=== PATIENT | female | born 1980 | race American Indian/Alaskan Native ===

== ENCOUNTER 2017-10-18 07:41 | Inpatient (IN) | payer MEDICAID ==
[2017-10-18] MEDS ORDERED: Sodium Chloride 0.9% 1,000 ML IV ONE ×2 (08:00→09:55)
[2017-10-18 08:13] LABS: BASO % 0.3 % (0.0-2.0); EOS % 0.1 % (0.0-4.0); LYMPH # 1.2 K/uL (1.0-4.3); LYMPH % 10.2 % (20.0-40.0); MEAN CELL VOLUME 80.3 fL (81.0-99.0); MEAN CORPUSCULAR HEMOGLOBIN 25.5 pg (27.0-31.0); MEAN CORPUSCULAR HGB CONC 31.7 g/dL (33.0-37.0); MEAN PLATELET VOLUME 7.8 fL (7.2-11.7); MONO # 0.6 K/uL (0.0-0.8); MONO % 4.9 % (0.0-10.0); NEUT # 10.3 K/uL (1.8-7.0); NEUT % 84.5 % (50.0-75.0); RBC 2.8 Mil/uL (3.80-5.20); RED CELL DISTRIBUTION WIDTH 15.6 % (11.5-14.5)
[2017-10-18 08:26] LABS: HEMOGLOBIN 7.1 g/dL (11.0-16.0); WHITE BLOOD COUNT 12.2 K/uL (4.8-10.8)
--- NOTE | 2017-10-18 08:31 | C.PDOC ---
History Of Present Illness 37 year old female is brought in by ambulance for evaluation of diffuse abdominal pain persisting for the past few weeks. Patient reports constipation and decreased appetite, stating that she "may have a UTI." Patient also reports being evaluated at [facility] one week ago for the same complaints and "nothing was done" so she presents here. History is limited due to patient being a poor historian. Time Seen by Provider: 10/18/17 07:43 Chief Complaint (Nursing): Abdominal Pain History Per: Patient History/Exam Limitations: no limitations Onset/Duration Of Symptoms: Other (weeks) Current Symptoms Are (Timing): Still Present Location Of Pain/Discomfort: Diffuse Quality Of Discomfort: "Pain" Associated Symptoms: Loss Of Appetite, Other (constipation) Past Medical History Reviewed: Historical Data, Nursing Documentation, Vital Signs Vital Signs: Last Vital Signs Temp 99.5 F 10/18/17 16:00 Pulse 103 H 10/18/17 16:00 Resp 16 10/18/17 16:00 BP 95/58 L 10/18/17 14:35 Pulse Ox 98 10/18/17 16:00 - Medical History PMH: Anxiety, Depression, HTN (NOT TAKING MEDS 02/24/17) Denies: Diabetes, Hepatitis, HIV, Seizures, Sexually Transmitted Disease Surgical History: No Surg Hx - [facility] Procedures SUTURE OF LIP LACERATION (08/21/14) TETANUS TOXOID ADMINIST (08/21/14) Family History: States: Unknown Family Hx - Social History Hx Tobacco Use: Yes Hx Alcohol Use: Yes Hx Substance Use: No - Immunization History Hx Tetanus Toxoid Vaccination: No Hx Influenza Vaccination: No Hx Pneumococcal Vaccination: No Review Of Systems Except As Marked, All Systems Reviewed And Found Negative. Constitutional: Negative for: Fever Cardiovascular: Negative for: Chest Pain Respiratory: Negative for: Shortness of Breath Gastrointestinal: Positive for: Nausea, Abdominal Pain, Constipation, Other ( decreased appetite) Genitourinary: Negative for: Incontinence Neurological: Negative for: Altered Mental Status Physical Exam - Physical Exam Appears: Non-toxic, Unkempt, Other (disheveled, poor physical hygiene, appears chronically ill and cachectic) Skin: Normal Color, Warm, Dry, No Rash, No Ecchymosis Head: Atraumatic, Normacephalic Eye(s): bilateral: PERRL Nose: No Flaring, No Discharge Oral Mucosa: Dry, No Drooling Throat: No Drooling Neck: Trachea Midline, Supple Chest: No Deformity, No Tenderness Cardiovascular: Rhythm Regular Respiratory: Normal Breath Sounds, No Rales, No Rhonchi, No Wheezing Gastrointestinal/Abdominal: Soft, Tenderness (diffuse), No Guarding, No Rebound Back: No CVA Tenderness Extremity: Normal ROM, No Pedal Edema, No Swelling Neurological/Psych: Oriented x3, Normal Speech, Normal Cognition, Other (no focal deficits) ED Course And Treatment - Laboratory Results Result Diagrams: 10/18/17 08:10 10/18/17 08:10 Lab Interpretation: Abnormal ECG: Interpreted By Me, Viewed By Me ECG Rhythm: Sinus Rhythm Interpretation Of ECG: SR@94/min, NAD, T wave inversion in V2-V3, no acute ST-T Changes. O2 Sat by Pulse Oximetry: 100 (RA) Pulse Ox Interpretation: Normal - Other Rad CXR X-Ray: Read By Radiologist Interpretation: IMPRESSION: Mild elevation right hemidiaphragm possibly due to eventration. There may also be some mild right basilar atelectasis. Developing infiltrate could be excluded with followup radiographs. - CT Scan/US CT abd/pelvis Other Rad Studies (CT/US): Radiology Report Reviewed CT/US Interpretation: IMPRESSION: There is a large amount of abdominal and pelvic ascites and a large amount of free intraperitoneal air suggesting perforated hollow viscus. Clinical correlation recommended. Note that these findings were discussed with emergency room STEVENSON Mendieta at approximately 12:30 p.m. with written down and read back verification. . Wall thickening of the transverse colon could represent a nonspecific colitis however possibility of bowel ischemia must be considered. . There is also wall with thickening of the distal mid and distal stomach ; rule out gastritis or possibly peptic ulcer disease. Findings consistent with anemia. Gallbladder wall is thickened likely due to incomplete distention/contracted likely due to nonfasting state however inflammatory process not excluded. Evaluation of the bladder is limited due to incomplete distention which presumably accounts for thick-walled appearance however the possibility of a cystitis not excluded. Progress Note: Critical Care . Blood transfusion offered to patient, agreed. After CT abd/pelvis discussed with radiologist, residential framing carpenter called for consult and was evaluated at bedside immediately. Abx given. case discussed with Violet and admission arranged to ICU. Critical Care Time - Critical Care Note Total Time (in mins): 40 Documented critical care: time excludes all time spent performing seperately billable procedures. Disposition - Disposition Disposition: HOSPITALIZED Disposition Time: 11:42 Condition: FAIR - Clinical Impression Clinical Impression: Anemia, Perforated abdominal viscus, Drug abuse - PA / DATA SUPPORT ANALYST / Resident Statement MD/DO has reviewed & agrees with the documentation as recorded. - Scribe Statement The provider has reviewed the documentation as recorded by the Scribe (William Hampton) All medical record entries made by the Scribe were at my direction and personally dictated by me. I have reviewed the chart and agree that the record accurately reflects my personal performance of the history, physical exam, medical decision making, and the department course for this patient. I have also personally directed, reviewed, and agree with the discharge instructions and disposition.
[2017-10-18 08:47] LABS: ALB/GLOB RATIO 1.2 (1.0-2.1); ALBUMIN 3.6 g/dL (3.5-5.0); CALCIUM 8.7 mg/dl (8.6-10.4)
[2017-10-18] MEDS ORDERED: Iodixanol 320 MG/ML 100 ML BOTTLE IV ONE (11:34)
[2017-10-18 11:48] LABS: SQUAMOUS EPITHIAL 1 /hpf (0-5); URINE BACTERIA OCC (<OCC); URINE BILIRUBIN NEGATIVE (NEGATIVE); URINE BLOOD NEGATIVE (NEGATIVE); URINE CLARITY Hazy (Clear); URINE COLOR Yellow (YELLOW); URINE GLUCOSE (UA) NORMAL (Normal); URINE LEUKOCYTE ESTERASE NEG Leu/uL (Negative); URINE PROTEIN 1+ mg/dL (NEGATIVE); URINE UROBILINOGEN NORMAL mg/dL (0.2-1.0); WBC CLUMPS FEW /hpf
[2017-10-18 11:49] LABS: HCG,QUALITATIVE URINE NEGATIVE (NEGATIVE)
--- NOTE | 2017-10-18 11:55 | RAD ---
HISTORY: weak COMPARISON: Comparison chest 02/24/2018. FINDINGS: LUNGS: Mild elevation right hemidiaphragm possibly due to eventration. There may also be some mild right basilar atelectasis. Developing infiltrate could be excluded with followup radiographs. PLEURA: No significant pleural effusion identified, no pneumothorax apparent. CARDIOVASCULAR: Normal. OSSEOUS STRUCTURES: No significant abnormalities. VISUALIZED UPPER ABDOMEN: Normal. OTHER FINDINGS: None. IMPRESSION: Mild elevation right hemidiaphragm possibly due to eventration. There may also be some mild right basilar atelectasis. Developing infiltrate could be excluded with followup radiographs.
[2017-10-18 11:56] LABS: BENZODIAZEPINES, UR NEGATIVE (NEGATIVE); OPIATES, UR NEGATIVE (NEGATIVE)
[2017-10-18 11:58] LABS: BARBITURATES, UR POSITIVE (NEGATIVE); PHENCYCLIDINE, UR POSITIVE (NEGATIVE)
[2017-10-18] MEDS ORDERED: Piperacillin/Tazobact 3.375 gm 100 ML IV STA (12:47)
--- NOTE | 2017-10-18 12:59 | CT ---
PROCEDURE: CT Abdomen and Pelvis with Oral contrast. HISTORY: LLQ pain COMPARISON: No prior study available comparison. TECHNIQUE: Contiguous axial images of the abdomen and pelvis performed without oral or intravenous contrast material. Additional 2D sagittal and coronal reformats generated. Radiation dose: Total exam DLP = 208.08 mGy-cm. This CT exam was performed using one or more of the following dose reduction techniques: Automated exposure control, adjustment of the mA and/or kV according to patient size, and/or use of iterative reconstruction technique. FINDINGS: LOWER THORAX: Lung bases clear. No infiltrate effusion or basilar pneumothorax. The heart size is within range of normal. Intravascular compartment however suggests underlying anemia. Clinical correlation recommended. . Small hiatal hernia. LIVER: Liver is borderline -mildly enlarged measuring just over 18 cm in CC dimension. No obvious hepatic mass or collection. There is a large amount of intra abdominal and pelvic ascites. GALLBLADDER AND BILE DUCTS: Gallbladder appears contracted which presumably accounts for thick-walled appearance however the possibility of a inflammatory process not excluded. There appears to be intraluminal hyperdense material that could represent sludge or possibly small gravel. PANCREAS: Pancreas is poorly delineated due to the aforementioned large amount of ascites and under opacified bowel. No obvious pancreatic lesions are identified. SPLEEN: The spleen exhibits relatively normal size and attenuation pattern without mass collection or calcification. ADRENALS: There are no adrenal lesions. KIDNEYS AND URETERS: Kidneys demonstrate relatively symmetric size. No evidence of nephrolithiasis or hydronephrosis. No obvious renal masses or collections BLADDER: Urinary bladder appears collapsed which presumably accounts for thick-walled appearance. Cystitis not excluded. REPRODUCTIVE: Uterus appears grossly unremarkable so far as can be seen. APPENDIX: What is felt to represent a normal appendix best seen on axial image number [id number] and coronal image number [id number] BOWEL: Evaluation of the bowel is quite limited due to the large amount of ascites and free intraperitoneal air. . A paucity of intraperitoneal and retroperitoneal fat also limits evaluation 47. . . There is wall thickening of the mid and distal stomach possibly due to incomplete distention and peristalsis however gastritis or peptic ulcer disease not excluded. Evaluation of the small bowel including small bowel wall limited the due to the aforementioned ascites free air and paucity of fat. No evidence of acute mechanical small bowel obstruction. Evaluation of the wall of the small bowel is also limited No evidence of acute mechanical bowel obstruction. There does appear to be wall thickening of the transverse colon nonspecific. Rule out infectious/inflammatory colitis or possibly bowel ischemia. Large amount of free intraperitoneal air suggesting perforated hollow viscus. Clinical correlation recommended large PERITONEUM: Large amount of abdominal and pelvic ascites. Amount of free intraperitoneal air suggests perforated hollow viscus. LYMPH NODES: Evaluation for adenopathy is limited. VASCULATURE: No abdominal aortic or iliac artery aneurysm. Intravascular compartment exhibits low-attenuation consistent with anemia. BONES: No fracture or destructive lesion. OTHER FINDINGS: None. IMPRESSION: There is a large amount of abdominal and pelvic ascites and a large amount of free intraperitoneal air suggesting perforated hollow viscus. Clinical correlation recommended. Note that these findings were discussed with emergency room STEVENSON Mendieta at approximately 12:30 p.m. with written down and read back verification. . Wall thickening of the transverse colon could represent a nonspecific colitis however possibility of bowel ischemia must be considered. . There is also wall with thickening of the distal mid and distal stomach ; rule out gastritis or possibly peptic ulcer disease. Findings consistent with anemia. Gallbladder wall is thickened likely due to incomplete distention/contracted likely due to nonfasting state however inflammatory process not excluded. Evaluation of the bladder is limited due to incomplete distention which presumably accounts for thick-walled appearance however the possibility of a cystitis not excluded.
[2017-10-18] MEDS ORDERED: Piperacillin/Tazobact 3.375 gm 100 ML IVPB ONE (13:40)
[2017-10-18] MEDS: Piperacill/Tazo 3.375gm in Dex 3.375 GM/50 ML BAG IVPB SCH (13:45)
[2017-10-18] MEDS ORDERED: Lactated Ringer's 1,000 ML IV SCH (14:00)
[2017-10-18 14:10] LABS: INR 0.9; PROTHROMBIN TIME 9.6 SECONDS (9.7-12.2)
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
[2017-10-18] MEDS ORDERED: Sodium Chloride 0.9% 500 ML IV ONE ×2 (16:15→22:21)
[2017-10-18] MEDS ORDERED: Phenylephrine 10 mg/ml Inj ONE (16:43)
[2017-10-18] MEDS ORDERED: Midazolam 2 MG/2 ML VIAL ONE (16:43)
[2017-10-18] MEDS ORDERED: Etomidate 20 mg/10ml Inj IV ONE (16:45)
[2017-10-18] MEDS: HYDROmorphone 1 mg/ml ISec IVP PRN (16:53)
[2017-10-18] MEDS ORDERED: BUPIVACAINE 0.125%/0.9% NACL 600 ML IJ ONE ×2 (17:17→17:18)
[2017-10-18] MEDS ORDERED: Morphine 4 MG/ML VIAL ONE (20:08)
[2017-10-18] MEDS ORDERED: Neostigmine Methylsulfate 3mg/3ml Syringe IV ONE (20:28)
--- NOTE | 2017-10-18 21:24 | PCM.SURG1 ---
Surgeon's Initial Post Op Note - Surgeon's Notes Surgeon: Dr. Quiros Veterinarian Poultry: Lj Kingston PGY2 Type of Anesthesia: General Endo, Local Anesthesia Administered By: Tanner Pre-Operative Diagnosis: Perforated viscus Operative Findings: 3x3cm anterior and posterior 1st part of duodenal perforation, gross gastric contamination. inflammed gastric wall, omentum. Post-Operative Diagnosis: Perforated duodenum Operation Performed: Exploratory laparotomy, partial gastrectomy, Eulalio en Y gastrojejunostomy, jejunojejunostomy . Omental patch. Specimen/Specimens Removed: Antrum of stomach and 1st part of duodenum. Estimated Blood Loss: EBL {In ML}: 100 Blood Products Given: PRBC Drains Used: Tahir Post-Op Condition: Good Date of Surgery/Procedure: 10/18/17 Time of Surgery/Procedure: 21:24
[2017-10-18] MEDS ORDERED: Dextrose 5%/0.45% NS 1,000 ML IV SCH (21:30)
--- NOTE | 2017-10-18 21:48 | CP.PCM.PN ---
Subjective - Date & Time of Evaluation Date of Evaluation: 10/18/17 Time of Evaluation: 21:38 - Subjective Subjective: Patient back from surgery. She is alert and oriented, feeling cold and tired. Abdominal discomfort. Exam: No respiratory distress, NG tube in place Resp: Clear, No rales, wheezes nor rhonchi CVS: S1 S2 RRR, No gallops Abdomen: Post surgical dressing Ext: No edemas. SCE in place Neuro: Non focal Surgery Report: Dx: Perforated Duodenum Procedure: Laparotomy with partial Gastrectomy. Jejunostomy, Omentectomy. Eulalio en Y Gastrojejunostomy - Blood Loss 100Mls - PRBC transfused , second bag going - Continue Surgical management - Pain management - IV Fluids - Zofran for nausea/vomits - Follow CBC/CMP/Electrolytes - Stress ulcer Prophylaxis with Pantoprazole - DVT prophylaxis to start in AM with lovenox Tyler Friend MD Objective - Vital Signs/Intake and Output Vital Signs (last 24 hours): Temp Pulse Resp BP Pulse Ox 99.5 F 103 H 16 95/58 L 100 10/18/17 16:00 10/18/17 16:00 10/18/17 16:00 10/18/17 14:35 10/18/17 18:38 Intake and Output: 10/18/17 10/19/17 18:59 06:59 Intake Total 2750 600 Output Total 200 Balance 2750 400 - Medications Medications: Current Medications Acetaminophen (Tylenol 650 Mg Supp) 650 mg [place] Q4 PRN PRN Reason: Fever >100.4 F Hydromorphone HCl (Dilaudid) 1 mg IVP Q4H PRN PRN Reason: Pain, moderate (4-7) Last Admin: 10/18/17 16:53 Dose: 1 mg Piperacillin Sod/Tazobactam Sod (Zosyn 3.375 Gm Iv Premix) 3.375 gm in 50 mls @ 100 mls/hr IVPB Q6H PHILIPPE PRN Reason: Protocol Last Admin: 10/18/17 13:45 Dose: Not Given BUPIVACAINE 0.125%/0.9% NACL (Bupivacaine-Ns 0.125% On-Q Department [employer] Sociology Chair) 600 mls @ 4 mls/ hr IJ ONCE ONE Stop: 10/24/17 23:16 Dextrose/Sodium Chloride (Dextrose 5%/0.45% Ns 1000 Ml) 1,000 mls @ 100 mls/hr IV .Q10H PHILIPPE Ondansetron HCl (Zofran Inj) 4 mg IVP Q4 PRN PRN Reason: Nausea/Vomiting Pantoprazole Sodium (Protonix Inj) 40 mg IVP Q12H PHILIPPE Last Admin: 10/18/17 17:08 Dose: Not Given - Labs Labs: 10/18/17 08:10 10/18/17 08:10 PT 9.6 SECONDS (9.7-12.2) L 10/18/17 13:48 INR 0.9 10/18/17 13:48 APTT 27 SECONDS (21-34) 10/18/17 13:48
[2017-10-18] MEDS: Dextrose 5%/0.9% NS 1,000 ML IV SCH (23:00)
[2017-10-19] MEDS: Piperacill/Tazo 3.375gm in Dex 3.375 GM/50 ML BAG IVPB SCH ×4 (01:00→20:03)
[2017-10-19] MEDS: Dextrose 5%/0.9% NS 1,000 ML IV SCH (05:26)
[2017-10-19 06:57] LABS: BASO % 0.2 % (0.0-2.0); HEMOGLOBIN 7.3 g/dL (11.0-16.0); LYMPH # 0.7 K/uL (1.0-4.3); LYMPH % 4.5 % (20.0-40.0); MEAN CELL VOLUME 81.2 fL (81.0-99.0); MEAN CORPUSCULAR HEMOGLOBIN 25.7 pg (27.0-31.0); MEAN CORPUSCULAR HGB CONC 31.6 g/dL (33.0-37.0); MEAN PLATELET VOLUME 8.3 fL (7.2-11.7); MONO # 1.1 K/uL (0.0-0.8); MONO % 7.1 % (0.0-10.0); NEUT # 13.5 K/uL (1.8-7.0); NEUT % 88.2 % (50.0-75.0); PLATELET COUNT 418 K/uL (130-400); RBC 2.83 Mil/uL (3.80-5.20); RED CELL DISTRIBUTION WIDTH 16.3 % (11.5-14.5); WHITE BLOOD COUNT 15.3 K/uL (4.8-10.8)
[2017-10-19 07:17] LABS: ALBUMIN 2.5 g/dL (3.5-5.0); CALCIUM 7.7 mg/dl (8.6-10.4)
--- NOTE | 2017-10-19 07:48 | CP.PCM.PN ---
<TheeLj - Last Filed: 10/19/17 07:43> Subjective - Date & Time of Evaluation Date of Evaluation: 10/19/17 Time of Evaluation: 07:44 - Subjective Subjective: Surgery Pt seen and examined. Pt undewent surgery yesterday. Tolerated it. Pain controlled. Pt is thirsty. Denies flatus. NGT in place. No output from NGT. Drain has 300cc ss since surgery. Objective - Vital Signs/Intake and Output Vital Signs (last 24 hours): Temp Pulse Resp BP Pulse Ox 98.8 F 96 H 21 95/60 L 100 10/19/17 04:00 10/19/17 06:00 10/19/17 06:00 10/19/17 05:59 10/19/17 06:00 Intake and Output: 10/19/17 10/19/17 06:59 18:59 Intake Total 2750 Output Total 1150 Balance 1600 - Medications Medications: Current Medications Acetaminophen (Tylenol 650 Mg Supp) 650 mg [place] Q4 PRN PRN Reason: Fever >100.4 F Enoxaparin Sodium (Lovenox) 40 mg SC DAILY ON LICENSE OF [facility] Hydromorphone HCl (Dilaudid) 1 mg IVP Q4H PRN PRN Reason: Pain, moderate (4-7) Last Admin: 10/18/17 16:53 Dose: 1 mg Piperacillin Sod/Tazobactam Sod (Zosyn 3.375 Gm Iv Premix) 3.375 gm in 50 mls @ 100 mls/hr IVPB Q6H PHILIPPE PRN Reason: Protocol Last Admin: 10/19/17 01:00 Dose: 100 mls/hr BUPIVACAINE 0.125%/0.9% NACL (Bupivacaine-Ns 0.125% On-Q Digital Experience Manager) 600 mls @ 4 mls/ hr IJ ONCE ONE Stop: 10/24/17 23:16 Dextrose/Sodium Chloride (Dextrose 5%/0.9% Ns 1000 Ml) 1,000 mls @ 150 mls/hr IV .Q6H40M PHILIPPE Stop: 10/19/17 12:19 Last Admin: 10/19/17 05:26 Dose: 150 mls/hr Ondansetron HCl (Zofran Inj) 4 mg IVP Q4 PRN PRN Reason: Nausea/Vomiting Pantoprazole Sodium (Protonix Inj) 40 mg IVP Q12H PHILIPPE Last Admin: 10/19/17 01:00 Dose: 40 mg - Labs Labs: 10/19/17 06:51 10/19/17 06:51 PT 9.6 SECONDS (9.7-12.2) L 10/18/17 13:48 INR 0.9 10/18/17 13:48 APTT 27 SECONDS (21-34) 10/18/17 13:48 - Constitutional Appears: No Acute Distress - Head Exam Head Exam: ATRAUMATIC, NORMAL INSPECTION, NORMOCEPHALIC - Eye Exam Eye Exam: EOMI, Normal appearance, PERRL Pupil Exam: NORMAL ACCOMODATION, PERRL - ENT Exam ENT Exam: Mucous Membranes Moist, Normal Exam - Neck Exam Neck Exam: Full ROM, Normal Inspection. absent: Lymphadenopathy - Respiratory Exam Respiratory Exam: NORMAL BREATHING PATTERN - Cardiovascular Exam Cardiovascular Exam: REGULAR RHYTHM, +S1, +S2. absent: Murmur - GI/Abdominal Exam GI & Abdominal Exam: Soft, Tenderness, Normal Bowel Sounds. absent: Distended, Guarding, Rigid, Diminished Bowel Sounds Additional comments: Drain SS 300cc overnight. ON Q. Dressing C/D/I - Exam Exam: NORMAL INSPECTION Additional comments: Jenkins - Extremities Exam Extremities Exam: Full ROM, Normal Capillary Refill, Normal Inspection. absent : Joint Swelling, Pedal Edema - Back Exam Back Exam: NORMAL INSPECTION - Neurological Exam Neurological Exam: Alert, Awake, CN II-XII Intact, Oriented x3 - Psychiatric Exam Psychiatric exam: Normal Affect, Normal Mood - Skin Skin Exam: Dry, Intact, Normal Color, Warm Assessment and Plan - Assessment and Plan (Free Text) Assessment: POD 1 sp exp lap partial gastrectomy Eulalio En Y gastrojejunostomy -NPO -D5 @100 -PTX -Pain control -Nausea contol Will DW Dt. [place] <Nabil Quiros - Last Filed: 10/19/17 20:45> Objective - Vital Signs/Intake and Output Vital Signs (last 24 hours): Temp Pulse Resp BP Pulse Ox 101 F H 104 H 15 102/60 100 10/19/17 20:00 10/19/17 20:00 10/19/17 20:00 10/19/17 19:59 10/19/17 20:00 Intake and Output: 10/19/17 10/20/17 18:59 06:59 Intake Total 1778 200 Output Total 60 Balance 1718 200 - Medications Medications: Current Medications Acetaminophen (Tylenol 650 Mg Supp) 650 mg [place] Q4 PRN PRN Reason: Fever >100.4 F Bacitracin (Bacitracin) 1 gm TOP BID ON LICENSE OF [facility] Last Admin: 10/19/17 20:02 Dose: 1 oin Enoxaparin Sodium (Lovenox) 40 mg SC DAILY ON LICENSE OF [facility] Last Admin: 10/19/17 09:52 Dose: 40 mg Hydromorphone HCl (Dilaudid) 1 mg IVP Q4H PRN PRN Reason: Pain, moderate (4-7) Last Admin: 10/18/17 16:53 Dose: 1 mg Piperacillin Sod/Tazobactam Sod (Zosyn 3.375 Gm Iv Premix) 3.375 gm in 50 mls @ 100 mls/hr IVPB Q6H PHILIPPE PRN Reason: Protocol Last Admin: 10/19/17 20:03 Dose: 100 mls/hr BUPIVACAINE 0.125%/0.9% NACL (Bupivacaine-Ns 0.125% On-Q Digital Experience Manager) 600 mls @ 4 mls/ hr IJ ONCE ONE Stop: 10/24/17 23:16 Ondansetron HCl (Zofran Inj) 4 mg IVP Q4 PRN PRN Reason: Nausea/Vomiting Pantoprazole Sodium (Protonix Inj) 40 mg IVP Q12H ON LICENSE OF [facility] Last Admin: 10/19/17 14:53 Dose: 40 mg - Labs Labs: 10/19/17 06:51 10/19/17 06:51 PT 9.6 SECONDS (9.7-12.2) L 10/18/17 13:48 INR 0.9 10/18/17 13:48 APTT 27 SECONDS (21-34) 10/18/17 13:48 Attending/Attestation - Attestation I have fully participated in the care of the patient.: Yes I have reviewed all pertinent clinical information, including history, physical exam and plan: Yes Notes (Text): Pt is improving clinically NG to LIS NPO, IVF C/W IV antibiotics DC jenkins DVT prophylaxis OOB to walk Plan d.w pt in detail
[2017-10-19 08:28] LABS: BANDS 53 % (0-2); LYMPHOCYTE 5 % (20-40); MONOCYTE 7 % (0-10); NEUTROPHIL 35 % (50-75); TOTAL CELLS COUNTED 100
[2017-10-19 08:29] LABS: ANISOCYTOSIS MODERATE; PLATELET ESTIMATE SLIGHTLY INCREASED (NORMAL)
[2017-10-19 08:30] LABS: HYPOCHROMIC SLIGHT; POLYCHROMIC SLIGHT; TOXIC GRANULATION PRESENT
[2017-10-19 08:31] LABS: LARGE PLATELETS PRESENT; OVALOCYTES SLIGHT; POIKILOCYTOSIS SLIGHT; SCHISTOCYTES SLIGHT
[2017-10-19] MEDS: Enoxaparin 40 mg Syringe SC SCH (09:52)
[2017-10-19] MEDS ORDERED: Vancomycin 1 gm/NS 200 ml 1 GM/200 ML BAG IVPB ONE (12:00)
--- NOTE | 2017-10-19 12:05 | HP ---
HISTORY: The patient is a 37-year-old female with a history of abdominal pain. The patient was brought emergently to the emergency room , abdominal pain advised admission. The patient is a smoker. PHYSICAL EXAMINATION: GENERAL: The patient is awake, alert, and oriented . VITAL SIGNS: Temperature is 98.6. Pulse is 95. Blood pressure . HEENT: Within normal limits. NECK: Supple. CHEST: Symmetrical. HEART: Regular. ABDOMEN: Rigid, somewhat tender to touch . EXTREMITIES: No edema. IMPRESSION: Acute abdomen. The patient ICU monitoring, throughout the day. Susan Marcos MD
[2017-10-19] MEDS ORDERED: HYDROmorphone 0.5 mg/0.5 ml ISec IVP STA (14:29)
--- NOTE | 2017-10-19 15:34 | CP.CCUPN ---
CCU Subjective - Physician Review Events Since Last Encounter (Free Text): 10/19/17 15:31 Patient seen and examined. S/P Exploratory laparotomy, partial gastrectomy, Eulalio en Y gastrojejunostomy, jejunojejunostomy . Omental patch for anterior and posterior 1st part of duodenal perforation Nasogastric tube in place 300 mL of drainage from drain Complaining of abdominal pain Afebrile CCU Objective - Vital Signs / Intake & Output Vital Signs (Last 4 hours): Vital Signs Temp Pulse Resp BP Pulse Ox 10/19/17 14:10 98 H 21 100 10/19/17 14:00 101 H 23 100 10/19/17 13:59 102 H 20 94/40 L 96 10/19/17 13:50 93 H 26 H 100 10/19/17 13:40 91 H 24 100 10/19/17 13:37 96 H 25 H 95/45 L 100 10/19/17 13:30 89 25 H 100 10/19/17 13:24 98.9 F 100 H 20 95/57 L 10/19/17 13:20 97 H 24 100 10/19/17 13:10 96 H 22 100 10/19/17 13:09 99.0 F 95 H 20 98/49 L 10/19/17 13:00 103 H 18 100 10/19/17 12:59 93 H 29 H 98/49 L 100 10/19/17 12:50 96 H 25 H 100 10/19/17 12:43 92 H 18 88/44 L 100 10/19/17 12:40 92 H 22 100 10/19/17 12:30 97 H 28 H 100 10/19/17 12:20 94 H 23 100 10/19/17 12:10 96 H 27 H 100 10/19/17 12:00 98.7 F 98 H 21 100 10/19/17 11:59 91 H 27 H 90/42 L 100 10/19/17 11:50 101 H 26 H 100 10/19/17 11:40 97 H 31 H 100 Intake and Output (Last 8hrs): Intake & Output 10/19/17 10/19/17 10/19/17 06:59 14:59 22:59 Intake Total 1550 1000 Output Total 950 60 Balance 600 940 Weight 138 lb 4 oz Intake: Intake, IV Amount 1550 1000 Left Antecubital 1550 1000 Blood Product 0 Apheresis Rbc Cp2d As3 Lr 0 1st Unit [id number] Output: Drainage 300 60 LEFT ABD YEN 160 60 RIGHT ABD YEN 140 Urine 650 Urethral (Felipe) 650 - Physical Exam Head: Positive for: Atraumatic, Normocephalic Pupils: Positive for: PERRL Mouth: Positive for: Moist Mucous Membranes Neck: Positive for: Normal Range of Motion Respiratory/Chest: Positive for: Clear to Auscultation Cardiovascular: Positive for: Regular Rate and Rhythm Abdomen: Positive for: Tenderness Upper Extremity: Positive for: Normal Inspection Lower Extremity: Positive for: Normal Inspection - Medications Active Medications: Active Medications Generic Name Dose Route Start Last Admin Trade Name Freq PRN Reason Stop Dose Admin Acetaminophen 650 mg 10/18/17 14:00 Tylenol 650 Mg Supp [place] Q4 PRN Fever >100.4 F Enoxaparin Sodium 40 mg 10/19/17 10:00 Lovenox SC DAILY PHILIPPE Hydromorphone HCl 1 mg 10/18/17 14:00 10/18/17 16:53 Dilaudid IVP 1 mg Q4H PRN Administration Pain, moderate (4-7) Piperacillin Sod/Tazobactam Sod 3.375 gm in 50 mls @ 100 mls/hr 10/18/17 13: 45 10/19/17 01:00 Zosyn 3.375 Gm Iv Premix IVPB 100 mls/hr Q6H PHILIPPE Administration Protocol BUPIVACAINE 0.125%/0.9% NACL 600 mls @ 4 mls/hr 10/18/17 17:17 Bupivacaine-Ns 0.125% On-Q Silversmith Apprentice IJ 10/24/17 23:16 ONCE ONE Ondansetron HCl 4 mg 10/18/17 14:00 Zofran Inj IVP Q4 PRN Nausea/Vomiting Pantoprazole Sodium 40 mg 10/18/17 14:00 10/19/17 01:00 Protonix Inj IVP 40 mg Q12H PHILIPPE Administration - Patient Studies Lab Studies: Microbiology Studies 10/18/17 21:24 Gram Stain - Final Peritoneal Fluid Body Fluid Culture - Preliminary NO GROWTH AFTER 24 HOURS 10/18/17 13:48 Urine Culture - Final Urine,Catheterized No Growth (<1,000 CFU/ML) Lab Studies 07/01/18 07/01/18 06/30/18 Range/Units 06:51 06:51 23:21 WBC 15.3 H (4.8-10.8) K/uL RBC 2.83 L (3.80-5.20) Mil/uL Hgb 7.3 L (11.0-16.0) g/dL Hct 23.0 L (34.0-47.0) % MCV 81.2 (81.0-99.0) fL MCH 25.7 L (27.0-31.0) pg MCHC 31.6 L (33.0-37.0) g/dL RDW 16.3 H (11.5-14.5) % Plt Count 418 H D (130-400) K/uL MPV 8.3 (7.2-11.7) fL Neut % (Auto) 88.2 H (50.0-75.0) % Lymph % (Auto) 4.5 L (20.0-40.0) % [place] % (Auto) 7.1 (0.0-10.0) % Eos % (Auto) 0.0 (0.0-4.0) % Baso % (Auto) 0.2 (0.0-2.0) % Neut # (Auto) 13.5 H (1.8-7.0) K/uL Lymph # (Auto) 0.7 L (1.0-4.3) K/uL [place] # (Auto) 1.1 H (0.0-0.8) K/uL Eos # (Auto) 0.0 (0.0-0.7) K/uL Baso # (Auto) 0.0 (0.0-0.2) K/uL Neutrophils % (Manual) 35 L (50-75) % Band Neutrophils % 53 H* (0-2) % Lymphocytes % (Manual) 5 L (20-40) % Monocytes % (Manual) 7 (0-10) % Toxic Granulation Present Platelet Estimate Slightly increased H (NORMAL) Large Platelets Present Polychromasia Slight Hypochromasia (manual) Slight Poikilocytosis (manual Slight Anisocytosis (manual) Moderate Ovalocytes Slight Schistocytes Slight Sodium 134 (132-148) mmol/L Potassium 4.9 (3.6-5.2) mmol/L Chloride 101 (98-107) mmol/L Carbon Dioxide 25 (22-30) mmol/L Anion Gap 13 (10-20) BUN 26 H (7-17) mg/dL Creatinine 1.8 H (0.7-1.2) mg/dL Est GFR ( Amer) 38 Est GFR (Non-Af Amer) 31 POC Glucose (mg/dL) 112 H (65-110) mg/dL Random Glucose 103 (65-105) mg/dL Calcium 7.7 L (8.6-10.4) mg/dl Phosphorus 5.2 H (2.5-4.5) mg/dL Magnesium 2.0 (1.6-2.3) mg/dL Total Bilirubin 0.5 (0.2-1.3) mg/dL AST 66 H D (14-36) U/L ALT 42 (9-52) U/L Alkaline Phosphatase 41 (38-126) U/L Total Protein 5.0 L (6.3-8.3) g/dL Albumin 2.5 L D (3.5-5.0) g/dL Globulin 2.4 (2.2-3.9) gm/dL Albumin/Globulin Ratio 1.0 (1.0-2.1) Blood Type Antibody Screen 10/18/17 Range/Units 09:56 WBC (4.8-10.8) K/uL RBC (3.80-5.20) Mil/uL Hgb (11.0-16.0) g/dL Hct (34.0-47.0) % MCV (81.0-99.0) fL MCH (27.0-31.0) pg MCHC (33.0-37.0) g/dL RDW (11.5-14.5) % Plt Count (130-400) K/uL MPV (7.2-11.7) fL Neut % (Auto) (50.0-75.0) % Lymph % (Auto) (20.0-40.0) % [place] % (Auto) (0.0-10.0) % Eos % (Auto) (0.0-4.0) % Baso % (Auto) (0.0-2.0) % Neut # (Auto) (1.8-7.0) K/uL Lymph # (Auto) (1.0-4.3) K/uL [place] # (Auto) (0.0-0.8) K/uL Eos # (Auto) (0.0-0.7) K/uL Baso # (Auto) (0.0-0.2) K/uL Neutrophils % (Manual) (50-75) % Band Neutrophils % (0-2) % Lymphocytes % (Manual) (20-40) % Monocytes % (Manual) (0-10) % Toxic Granulation Platelet Estimate (NORMAL) Large Platelets Polychromasia Hypochromasia (manual) Poikilocytosis (manual Anisocytosis (manual) Ovalocytes Schistocytes Sodium (132-148) mmol/L Potassium (3.6-5.2) mmol/L Chloride (98-107) mmol/L Carbon Dioxide (22-30) mmol/L Anion Gap (10-20) BUN (7-17) mg/dL Creatinine (0.7-1.2) mg/dL Est GFR ( Amer) Est GFR (Non-Af Amer) POC Glucose (mg/dL) (65-110) mg/dL Random Glucose (65-105) mg/dL Calcium (8.6-10.4) mg/dl Phosphorus (2.5-4.5) mg/dL Magnesium (1.6-2.3) mg/dL Total Bilirubin (0.2-1.3) mg/dL AST (14-36) U/L ALT (9-52) U/L Alkaline Phosphatase (38-126) U/L Total Protein (6.3-8.3) g/dL Albumin (3.5-5.0) g/dL Globulin (2.2-3.9) gm/dL Albumin/Globulin Ratio (1.0-2.1) Blood Type O NEGATIVE Antibody Screen Negative Laboratory Results - last 24 hr 10/18/17 10/18/17 10/19/17 09:56 23:21 06:51 WBC 15.3 H RBC 2.83 L Hgb 7.3 L Hct 23.0 L MCV 81.2 MCH 25.7 L MCHC 31.6 L RDW 16.3 H Plt Count 418 H D MPV 8.3 Neut % (Auto) 88.2 H Lymph % (Auto) 4.5 L [place] % (Auto) 7.1 Eos % (Auto) 0.0 Baso % (Auto) 0.2 Neut # (Auto) 13.5 H Lymph # (Auto) 0.7 L [place] # (Auto) 1.1 H Eos # (Auto) 0.0 Baso # (Auto) 0.0 Neutrophils % (Manual) 35 L Band Neutrophils % 53 H* Lymphocytes % (Manual) 5 L Monocytes % (Manual) 7 Toxic Granulation Present Platelet Estimate Slightly increased H Large Platelets Present Polychromasia Slight Hypochromasia (manual) Slight Poikilocytosis (manual Slight Anisocytosis (manual) Moderate Ovalocytes Slight Schistocytes Slight Sodium Potassium Chloride Carbon Dioxide Anion Gap BUN Creatinine Est GFR ( Amer) Est GFR (Non-Af Amer) POC Glucose (mg/dL) 112 H Random Glucose Calcium Phosphorus Magnesium Total Bilirubin AST ALT Alkaline Phosphatase Total Protein Albumin Globulin Albumin/Globulin Ratio Blood Type O NEGATIVE Antibody Screen Negative 10/19/17 06:51 WBC RBC Hgb Hct MCV MCH MCHC RDW Plt Count MPV Neut % (Auto) Lymph % (Auto) [place] % (Auto) Eos % (Auto) Baso % (Auto) Neut # (Auto) Lymph # (Auto) [place] # (Auto) Eos # (Auto) Baso # (Auto) Neutrophils % (Manual) Band Neutrophils % Lymphocytes % (Manual) Monocytes % (Manual) Toxic Granulation Platelet Estimate Large Platelets Polychromasia Hypochromasia (manual) Poikilocytosis (manual Anisocytosis (manual) Ovalocytes Schistocytes Sodium 134 Potassium 4.9 Chloride 101 Carbon Dioxide 25 Anion Gap 13 BUN 26 H Creatinine 1.8 H Est GFR ( Amer) 38 Est GFR (Non-Af Amer) 31 POC Glucose (mg/dL) Random Glucose 103 Calcium 7.7 L Phosphorus 5.2 H Magnesium 2.0 Total Bilirubin 0.5 AST 66 H D ALT 42 Alkaline Phosphatase 41 Total Protein 5.0 L Albumin 2.5 L D Globulin 2.4 Albumin/Globulin Ratio 1.0 Blood Type Antibody Screen Fingerstick Blood Sugar Results: 112 Critical Care Progress Note - Nutrition Nutrition: Nutrition Category Date Time Status NPO Diet [DIET] Diets 10/18/17 Lunch Active Assessment/Plan (1) Perforated abdominal viscus Current Visit: Yes Status: Acute Comment: S/P Exploratory laparotomy, partial gastrectomy, Eulalio en Y gastrojejunostomy, jejunojejunostomy . Omental patch continue NG tube Continue pain medication Continue IV fluids IV antibiotics (2) Anemia Current Visit: Yes Status: Acute (3) Drug abuse Current Visit: Yes Status: Acute
[2017-10-19] MEDS ORDERED: Acetaminophen IV 1,000 MG in Premixed IV 1 EA IV ONE (19:47)
[2017-10-19] MEDS: Bacitracin Ointment 30 GM TUBE TOP SCH (20:02)
[2017-10-20] MEDS: Piperacill/Tazo 3.375gm in Dex 3.375 GM/50 ML BAG IVPB SCH ×4 (01:01→19:19)
--- NOTE | 2017-10-20 05:51 | OP ---
PROCEDURE DATE: 10/18/2017 PREOPERATIVE DIAGNOSES: 1. Acute abdomen. 2. Pneumoperitoneum with possible perforated viscus. 3. Active substance abuse. POSTOPERATIVE DIAGNOSES: 1. Perforated ulcer of the first part of the duodenum in the anterior as well as the posterior wall of approximately 3 x 3 cm size. 2. Multiple pelvic perihepatic, perisplenic, and paracolic gutter abscesses. 3. Active substance abuse. 4. Acute peritonitis. PROCEDURE DONE: 1. Exploratory laparotomy. 2. Drainage of pelvic, perihepatic,perisplenic and paracolic gutter abscesses. 3. Abdominal washout with 5 liter of fluid. 4. Partial gastrectomy. 5. Gastrojejunostomy with Eulalio-en-Y reconstruction. 6. Omental Patch of Duodenal stump after double layer closure 7. Extensive enterolysis and lysis of adhesion due to post infectious adhesion. 8. Bilateral On-Q pain catheter pump placement. SURGEON: Nabil Quiros MD. WIND TURBINE MACHINIST: Lj Kingston, PGY-2 resident. TYPE OF ANESTHESIA: General endotracheal tube anesthesia. ESTIMATED BLOOD LOSS: Around 100 mL. DRAIN: The first drain was placed around the duodenal stump. The second drain was placed in the pelvis. COMPLICATIONS: None. PATHOLOGY: Distal part of the stomach including the duodenum and perforated ulcer site was sent to the table for pathology. COMPLICATIONS: None. INTRAOPERATIVE FINDINGS: The patient had a 3 x 3 cm perforation of the first part of the duodenum anteriorly as well as posteriorly into the pancreas, and the patient had extensive scarring and adhesion of the first part of the duodenum and the common bile duct was dissected to identify the entry behind the first part of the duodenum, and it was approximately 1 cm distal to the posterior perforation site, and due to large size of the anterior and posterior perforated ulcer with extensive scarring, the decision was made to do the partial gastrectomy and Eulalio-en-Y anastomosis, and the patient also had approximately 3 to 4 liter of pus in the abdominal cavity, in the pelvic, paracolic gutters as well as around the liver as well as around the spleen; and the patient had extensive post infectious adhesion due to 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 Duodenal stump was closed in two layer and due to extensive scarring of posterior wall, omental patch was done for extra reinforcement of stump. DESCRIPTION OF PROCEDURE: On intraoperative steps, this is a 37-year-old female with active IV drug abuse, and the patient presented in the ER with chronic abdominal pain for the last two weeks, and the patient has visited two other hospitals for similar complaint, and the patient was discharged with pain medications, and the patient came to [facility]. The patient was diagnosed to have free air with acute abdomen, and the patient was consented for exploratory laparotomy and possible bowel resection, possible ostomy, brought to the OR, placed supine on the operating table. After induction of the anesthesia, the abdomen was prepped and draped in the usual sterile fashion. The midline incision was made from the xiphisternum up to the umbilical level, and after incising the skin, subcutaneous tissue and the fascia, the peritoneal cavity was entered. The patient was found to have old bile with pus all over the abdomen, and approximately, 3 to 4 liters of pus with altered gastric content was evacuated. Thorough abdominal washout was done with approximately 4 to 5 liters of fluid to completely clean the peritoneal cavity and the pelvis, paracolic gutter around the liver and around the spleen, and now the patient was found to have large perforation of the first part of the duodenum of approximately 3 x 3 cm size, and the patient also had posterior perforation into the lesser sac and around the pancreas that was also identified, and first extensive lysis of adhesion was done, and first lesser sac was entered, and the colon and the stomach was from the phlegmonous mass, and now the common bile duct was also dissected and entry of the common bile duct was 1 cm distal to the perforation site, and decision was made to do the partial gastrectomy. The lesser curvature as well as the greater curvature was mobilized. The distal part of the stomach was divided with SALMA, and the jejunum was divided approximately 14 cm from the ligament of Treitz and anastomosed to the distal jejunum at approximately 60 cm from previous resection site to do jejunojejunostomy, and now the Eulalio limb was brought up through the mesocolon, and gastrojejunostomy was done with SALMA as well as a TA, and the leak test was done. Now the duodenal stump at the original perforation site was closed with 2-0 silk for continuous closure and then surrounding omentum as well as the part of the mesentery was used to do the patch. Because of the extensive thick posterior scarring, it was unable to do the proper duodenal stump closure, and the omentum was used as a secondary measure to patch the duodenal stump to prevent the leak, and after that, the drain was placed surrounding the duodenal stump as well as in the pelvis. Again the abdominal washout was done, and the peritoneal cavity was closed in a two layered fascia with #1 looped PDS as well as 0 Prolene interrupted sutures, skin with vivek, and before closure of the peritoneal cavity, bilateral On-Q pain catheter pump was placed and pain catheter was connected to the On-Q bulbs and dry sterile dressings was applied. The patient tolerated the procedure well. Count of the instrument and gauze was correct. There was no apparent complication. The patient extubated in OR and sent to the Postanesthesia Care Unit in stable condition. Nabil Quiros MD MTDD
[2017-10-20 06:27] LABS: BASO % 0.1 % (0.0-2.0); EOS # 0.1 K/uL (0.0-0.7); EOS % 0.7 % (0.0-4.0); HEMOGLOBIN 8.1 g/dL (11.0-16.0); LYMPH # 0.5 K/uL (1.0-4.3); LYMPH % 2.4 % (20.0-40.0); MEAN CELL VOLUME 81.1 fL (81.0-99.0); MEAN CORPUSCULAR HEMOGLOBIN 27.2 pg (27.0-31.0); MEAN CORPUSCULAR HGB CONC 33.5 g/dL (33.0-37.0); MONO # 1.1 K/uL (0.0-0.8); NEUT # 19.4 K/uL (1.8-7.0); NEUT % 91.8 % (50.0-75.0); PLATELET COUNT 508 K/uL (130-400); RBC 2.98 Mil/uL (3.80-5.20); WHITE BLOOD COUNT 21.2 K/uL (4.8-10.8)
[2017-10-20 06:35] LABS: ALBUMIN 2.6 g/dL (3.5-5.0); CALCIUM 8.4 mg/dl (8.6-10.4)
[2017-10-20] MEDS: HYDROmorphone 1 mg/ml ISec IVP PRN ×3 (06:36→20:32)
[2017-10-20] MEDS ORDERED: Dextrose 5%/0.9% NS 1,000 ML IV SCH (07:45)
[2017-10-20] MEDS ORDERED: Sodium Chloride 0.9% 1,000 ML IV SCH (07:45)
[2017-10-20 08:34] LABS: BANDS 19 % (0-2); EOSINOPHIL 1 % (0-4); LYMPHOCYTE 3 % (20-40); MONOCYTE 7 % (0-10); NEUTROPHIL 70 % (50-75); TOTAL CELLS COUNTED 100
[2017-10-20 08:35] LABS: ANISOCYTOSIS SLIGHT; HYPOCHROMIC SLIGHT; PLATELET ESTIMATE SLIGHTLY INCREASED (NORMAL); POLYCHROMIC SLIGHT; TARGET CELLS SLIGHT
[2017-10-20] MEDS: Potassium Ch 20mEq in D5-1/2NS 1,000 ML IV SCH ×3 (08:59→20:31)
[2017-10-20] MEDS: Fluconazole IV 200mg/100 ml NS 100 ML IVPB SCH (10:01)
[2017-10-20] MEDS: Enoxaparin 40 mg Syringe SC SCH (10:03)
[2017-10-20] MEDS: Bacitracin Ointment 30 GM TUBE TOP SCH ×2 (10:06→18:08)
--- NOTE | 2017-10-20 11:50 | CP.CCUPN ---
CCU Subjective - Physician Review Subjective (Free Text): 10/20/17 11:36 Patient is a 37 yo female, 2 days s/p ex-lap, partial gastrectomy, zoraida en Y gastrojejunostomy, jejunostomy, omental patch for duodenal perforation with gastric contamination. Patient seen and examined at bedside. No acute events overnight. Patient is AAOx3 and in no acute distress. Patient reports pain has improved and has no complaints at this time. Patient continues to be NPO. Patient denies BM or flatus. Patient is OOB to chair and voiding. Patient denies fevers, chills, chest pain, palpitations, SOB, cough, nausea, vomiting, diarrhea, dysuria, suprapubic tenderness, lower extremity edema. Critical Care Time Spent (in minutes): 45 CCU Objective - Vital Signs / Intake & Output Vital Signs (Last 4 hours): Vital Signs Temp Pulse Resp BP Pulse Ox 10/20/17 10:59 84 16 106/62 100 10/20/17 09:59 84 14 96/56 L 98 10/20/17 09:45 79 22 115/69 99 10/20/17 09:00 75 19 99 10/20/17 08:59 87 16 105/47 L 93 L 10/20/17 08:00 98.5 F 82 16 101/62 100 Intake and Output (Last 8hrs): Intake & Output 10/19/17 10/20/17 10/20/17 22:59 06:59 14:59 Intake Total 1128 50 525 Output Total 300 700 260 Balance 828 -650 265 Weight 125 lb Intake: Intake, IV Amount 850 50 525 Left Antecubital 850 50 150 Right Forearm 375 Oral 0 0 Blood Product 278 Apheresis Rbc Cp2d As3 Lr 278 1st Unit [id number] Output: Drainage 260 LEFT ABD YEN 160 RIGHT ABD YEN 100 Right Nare 0 Urine 300 700 Urine, Voided 300 700 - Physical Exam Head: Positive for: Atraumatic, Normocephalic Pupils: Positive for: PERRL Conjunctiva: Positive for: Normal Mouth: Positive for: Moist Mucous Membranes Neck: Positive for: Normal Range of Motion Respiratory/Chest: Positive for: Clear to Auscultation Cardiovascular: Positive for: Regular Rate and Rhythm Abdomen: Positive for: Tenderness Upper Extremity: Positive for: Normal Inspection Lower Extremity: Positive for: Normal Inspection Psychiatric: Positive for: Alert, Oriented x 3 - Medications Active Medications: Active Medications Generic Name Dose Route Start Last Admin Trade Name Freq PRN Reason Stop Dose Admin Acetaminophen 650 mg 10/18/17 14:00 Tylenol 650 Mg Supp [place] Q4 PRN Fever >100.4 F Bacitracin 1 gm 10/19/17 19:30 10/20/17 10:06 Bacitracin TOP 1 oin BID PHILIPPE Administration Enoxaparin Sodium 40 mg 10/19/17 10:00 10/20/17 10:03 Lovenox SC 40 mg DAILY PHILIPPE Administration Hydromorphone HCl 1 mg 10/18/17 14:00 10/20/17 06:36 Dilaudid IVP 1 mg Q4H PRN Administration Pain, moderate (4-7) Piperacillin Sod/Tazobactam Sod 3.375 gm in 50 mls @ 100 mls/hr 10/18/17 13: 45 10/20/17 06:45 Zosyn 3.375 Gm Iv Premix IVPB 100 mls/hr Q6H PHILIPPE Administration Protocol BUPIVACAINE 0.125%/0.9% NACL 600 mls @ 4 mls/hr 10/18/17 17:17 Bupivacaine-Ns 0.125% On-Q Bus Operator IJ 10/24/17 23:16 ONCE ONE Fluconazole 100 mls @ 100 mls/hr 10/20/17 10:00 10/20/17 10:01 Diflucan Iv 200 Mg/100 Ml Ns IVPB 100 mls/hr DAILY PHILIPPE Administration Protocol Potassium Chloride/Dextrose/Sod Cl 1,000 mls @ 100 mls/hr 10/20/17 08:00 06/08 08:59 Potassium Chl 20 Meq In D5-1/2ns IV 100 mls/hr .Q10H PHILIPPE Administration Ondansetron HCl 4 mg 10/18/17 14:00 Zofran Inj IVP Q4 PRN Nausea/Vomiting Pantoprazole Sodium 40 mg 10/18/17 14:00 10/20/17 01:02 Protonix Inj IVP 40 mg Q12H PHILIPPE Administration - Patient Studies Lab Studies: Microbiology Studies 10/18/17 21:25 MRSA Culture (Admit) - Final Nose MRSA NOT DETECTED 10/18/17 15:45 Blood Culture - Preliminary Blood NO GROWTH AFTER 24 HOURS 06/30/18 15:45 Blood Culture - Preliminary Blood NO GROWTH AFTER 24 HOURS 10/18/17 21:24 Gram Stain - Final Peritoneal Fluid Body Fluid Culture - Preliminary NO GROWTH AFTER 24 HOURS 10/18/17 13:48 Urine Culture - Final Urine,Catheterized No Growth (<1,000 CFU/ML) Lab Studies 10/20/17 10/20/17 10/18/17 Range/Units 06:13 06:13 09:56 WBC 21.2 H (4.8-10.8) K/uL RBC 2.98 L (3.80-5.20) Mil/uL Hgb 8.1 L (11.0-16.0) g/dL Hct 24.1 L (34.0-47.0) % MCV 81.1 (81.0-99.0) fL MCH 27.2 (27.0-31.0) pg MCHC 33.5 (33.0-37.0) g/dL RDW 16.0 H (11.5-14.5) % Plt Count 508 H (130-400) K/uL MPV 8.0 (7.2-11.7) fL Neut % (Auto) 91.8 H (50.0-75.0) % Lymph % (Auto) 2.4 L (20.0-40.0) % [place] % (Auto) 5.0 (0.0-10.0) % Eos % (Auto) 0.7 (0.0-4.0) % Baso % (Auto) 0.1 (0.0-2.0) % Neut # (Auto) 19.4 H (1.8-7.0) K/uL Lymph # (Auto) 0.5 L (1.0-4.3) K/uL [place] # (Auto) 1.1 H (0.0-0.8) K/uL Eos # (Auto) 0.1 (0.0-0.7) K/uL Baso # (Auto) 0.0 (0.0-0.2) K/uL Neutrophils % (Manual) 70 (50-75) % Band Neutrophils % 19 H* (0-2) % Lymphocytes % (Manual) 3 L (20-40) % Monocytes % (Manual) 7 (0-10) % Eosinophils % (Manual) 1 (0-4) % Platelet Estimate Slightly increased H (NORMAL) Polychromasia Slight Hypochromasia (manual) Slight Anisocytosis (manual) Slight Target Cells Slight Sodium 138 (132-148) mmol/L Potassium 4.1 (3.6-5.2) mmol/L Chloride 105 (98-107) mmol/L Carbon Dioxide 23 (22-30) mmol/L Anion Gap 14 (10-20) BUN 24 H (7-17) mg/dL Creatinine 1.4 H (0.7-1.2) mg/dL Est GFR ( Amer) 51 Est GFR (Non-Af Amer) 42 Random Glucose 68 (65-105) mg/dL Calcium 8.4 L (8.6-10.4) mg/dl Phosphorus 3.7 (2.5-4.5) mg/dL Magnesium 2.1 (1.6-2.3) mg/dL Total Bilirubin 0.6 (0.2-1.3) mg/dL AST 74 H (14-36) U/L ALT 36 (9-52) U/L Alkaline Phosphatase 67 (38-126) U/L Total Protein 5.3 L (6.3-8.3) g/dL Albumin 2.6 L (3.5-5.0) g/dL Globulin 2.7 (2.2-3.9) gm/dL Albumin/Globulin Ratio 1.0 (1.0-2.1) Blood Type O NEGATIVE Antibody Screen Negative Laboratory Results - last 24 hr 10/18/17 10/20/17 10/20/17 09:56 06:13 06:13 WBC 21.2 H RBC 2.98 L Hgb 8.1 L Hct 24.1 L MCV 81.1 MCH 27.2 MCHC 33.5 RDW 16.0 H Plt Count 508 H MPV 8.0 Neut % (Auto) 91.8 H Lymph % (Auto) 2.4 L [place] % (Auto) 5.0 Eos % (Auto) 0.7 Baso % (Auto) 0.1 Neut # (Auto) 19.4 H Lymph # (Auto) 0.5 L [place] # (Auto) 1.1 H Eos # (Auto) 0.1 Baso # (Auto) 0.0 Neutrophils % (Manual) 70 Band Neutrophils % 19 H* Lymphocytes % (Manual) 3 L Monocytes % (Manual) 7 Eosinophils % (Manual) 1 Platelet Estimate Slightly increased H Polychromasia Slight Hypochromasia (manual) Slight Anisocytosis (manual) Slight Target Cells Slight Sodium 138 Potassium 4.1 Chloride 105 Carbon Dioxide 23 Anion Gap 14 BUN 24 H Creatinine 1.4 H Est GFR ( Amer) 51 Est GFR (Non-Af Amer) 42 Random Glucose 68 Calcium 8.4 L Phosphorus 3.7 Magnesium 2.1 Total Bilirubin 0.6 AST 74 H ALT 36 Alkaline Phosphatase 67 Total Protein 5.3 L Albumin 2.6 L Globulin 2.7 Albumin/Globulin Ratio 1.0 Blood Type O NEGATIVE Antibody Screen Negative Fingerstick Blood Sugar Results: 112 Review of Systems - Cardiovascular Cardiovascular: absent: Chest Pain, Dyspnea - Respiratory Respiratory: absent: Cough, Chest Congestion - Gastrointestinal Gastrointestinal: absent: Diarrhea, Nausea - Genitourinary Genitourinary: absent: Dysuria, Urinary Frequency Critical Care Progress Note - Extremities/Vascular Does the Patient have a Central Venous Catheter?: No Does the Patient have a Felipe Catheter?: No - Prophylaxis GI Prophylaxis GI: PPI - Prophylaxis DVT Prophylaxis DVT: Lovenox - Nutrition Nutrition: Nutrition Category Date Time Status NPO Diet [DIET] Diets 10/18/17 Lunch Active Assessment/Plan - Assessment and Plan (Free Text) Assessment: 10/20/17 12:17 Patient is a 37 yo female, 2 days s/p ex-lap, partial gastrectomy, zoraida en Y gastrojejunostomy, jejunostomy, omental patch for duodenal perforation with gastric contamination. 1. Perforated duodenum -NPO per sx recs -NG to intermittent suction -Pain meds- Acetamimophen 650mg Q4 PRN, Bupivicane, Dilaudid IVP Q4 PRN -IV Abx-Pip/Tazo 3.375 gm in 50 ml IVPB Q6 -f/u path report -Dr. Hope consulted 2. Anemia -continue to monitor; last Hgb 8.1 -Transfuse as needed 3. Drug abuse -f/u psych recommendations -Tox + for barbiturates, PCP, cannabinoids -Dr. Dean consulted 10/20/17 12:32 4. Prophylaxis GI-protonix DVT-Lovenox, OOB Patient transferred to med-surg Case discussed with motorcycle builder Dr. Rolle
--- NOTE | 2017-10-20 12:26 | PCM.PSYCH ---
Initial Psychiatric Evaluation - Initial Psychiatric Evaluation Type of Admission: Voluntary Legal Status: Capacity Chief Complaint (in patient's own words): "I feel fine" History of Present Illness and Precipitating Events: The pt is seen, chart reviewed, case was discussed. Patient is a 37 year old female with a past medical history of depression who was admitted to the hospital for severe abdominal pain. The patient had a gastrectomy and exploratory laparotomy. The patient states that she was diagnosed with depression some years ago following the of her childrens father. She was given anti-depressants at the time the names of which she does not recall. She is currently not on antidepressants. The patients urine drug screen was positive for barbiturates and cannabinoids. When questioned she admitted to smoking marijuana a few weeks ago. She reports euthymic mood but appeared depressed and withdrawn. She denies any thoughts of hurting self or others. She denies any AVH or any paranoia. Past medical history: Anxiety, depression Social Hx: smokes 7 cigarettes a day for the past 5 years Family Hx: patient does not provide any Medications: no known home medications Current Medications: Active Medications Generic Name Dose Route Start Last Admin Trade Name Freq PRN Reason Stop Dose Admin Acetaminophen 650 mg 10/18/17 14:00 Tylenol 650 Mg Supp MO Q4 PRN Fever >100.4 F Bacitracin 1 gm 10/19/17 19:30 10/20/17 10:06 Bacitracin TOP 1 oin BID [facility] Administration Enoxaparin Sodium 40 mg 10/19/17 10:00 10/20/17 10:03 Lovenox SC 40 mg DAILY [facility] Administration Hydromorphone HCl 1 mg 10/18/17 14:00 10/20/17 11:45 Dilaudid IVP 1 mg Q4H PRN Administration Pain, moderate (4-7) Piperacillin Sod/Tazobactam Sod 3.375 gm in 50 mls @ 100 mls/hr 10/18/17 13: 45 10/20/17 06:45 Zosyn 3.375 Gm Iv Premix IVPB 100 mls/hr Q6H [facility] Administration Protocol BUPIVACAINE 0.125%/0.9% NACL 600 mls @ 4 mls/hr 10/18/17 17:17 Bupivacaine-Ns 0.125% On-Q Cash Applications Coordinator IJ 10/24/17 23:16 ONCE ONE Fluconazole 100 mls @ 100 mls/hr 10/20/17 10:00 10/20/17 10:01 Diflucan Iv 200 Mg/100 Ml Ns IVPB 100 mls/hr DAILY [facility] Administration Protocol Potassium Chloride/Dextrose/Sod Cl 1,000 mls @ 100 mls/hr 10/20/17 08:00 06/08 08:59 Potassium Chl 20 Meq In D5-1/2ns IV 100 mls/hr .Q10H [facility] Administration Ondansetron HCl 4 mg 10/18/17 14:00 Zofran Inj IVP Q4 PRN Nausea/Vomiting Pantoprazole Sodium 40 mg 10/18/17 14:00 10/20/17 01:02 Protonix Inj IVP 40 mg Q12H [facility] Administration Past Psychiatric History - Past Psychiatric History Previous Treatment History: Inpatient Prior Professional Help: Patient states that she saw a psychiatrist years ago Prior Psychiatric Treatment: Antidepressants Pertinent Medical Hx (Current Medical&Sleep Prob, Allergies): Allergies Allergy/AdvReac Type Severity Reaction Status Date / Time No Known Allergies Allergy Verified 10/18/17 07:48 No Known Home Med 02/24/17 Review of Systems - Review of Systems All systems: reviewed and no additional remarkable complaints except - Constitutional Constitutional: absent: Fever - Psychiatric Psychiatric: Anxiety, Depression. absent: Suicidal Ideation Additional comments: denies homicidial or suicidal ideations. Denies audio or visual hallucinations Mental Status Examination - Personal Presentation Personal Presentation: Looks older than stated age - Affect Affect: Constricted - Motor Activity Motor Activity: Calm - Reliability in Providing Information Reliability in Providing Information: Fair - Speech Speech: Organized - Mood Mood: Depressed, Anxious - Formal Thought Process Formal Thought Process: No Impairment - Obsessions/Compulsions Obsessions: No Compulsions: No - Cognitive Functions Orientation: Person, Place, Situation, Time Sensorium: Alert Attention/Concentration: Attentive Abstract Thinking: [place] Estimate of Intelligence: Below average Judgement: Imparied, as evidence by: Poor judgement, Imparied, as evidence by: Lack of insight into illness - Risk Risk: Diminished functioning DSM 5 DX - DSM 5 DSM 5 Diagnosis: Major Depressive Disorder recurrent moderate Cannabis use disorder moderate - Recommended/Plan of Treatment Treatment Recommendations and Plan of Treatment: Major Depressive Disorder recurrent moderate Cannabis use disorder moderate Zoloft 50 mg PO Daily Trazdone 50 mg PO QHS Ativan 1 mg po q6 hr prn Pt psychiatrically stable and clear for discharge. - Smoking Cessation Smoking Cessation Initiated: No
--- NOTE | 2017-10-20 12:50 | CP.PCM.PN ---
<YasmanyvitorClinton - Last Filed: 10/20/17 12:50> Subjective - Date & Time of Evaluation Date of Evaluation: 10/20/17 Time of Evaluation: 12:47 - Subjective Subjective: Surgery: Dr. Quiros Pt seen and examined. No acute events overnight. Pain controlled. No N/V. Passing flatus. No BM. Objective - Vital Signs/Intake and Output Vital Signs (last 24 hours): Temp Pulse Resp BP Pulse Ox 98.5 F 84 16 106/62 100 10/20/17 08:00 10/20/17 10:59 10/20/17 10:59 10/20/17 10:59 10/20/17 10:59 Intake and Output: 10/20/17 10/20/17 06:59 18:59 Intake Total 400 525 Output Total 1000 260 Balance -600 265 - Medications Medications: Current Medications Acetaminophen (Tylenol 650 Mg Supp) 650 mg MO Q4 PRN PRN Reason: Fever >100.4 F Bacitracin (Bacitracin) 1 gm TOP BID [facility] Last Admin: 10/20/17 10:06 Dose: 1 oin Enoxaparin Sodium (Lovenox) 40 mg SC DAILY [facility] Last Admin: 10/20/17 10:03 Dose: 40 mg Hydromorphone HCl (Dilaudid) 1 mg IVP Q4H PRN PRN Reason: Pain, moderate (4-7) Last Admin: 10/20/17 11:45 Dose: 1 mg Piperacillin Sod/Tazobactam Sod (Zosyn 3.375 Gm Iv Premix) 3.375 gm in 50 mls @ 100 mls/hr IVPB Q6H [facility] PRN Reason: Protocol Last Admin: 10/20/17 06:45 Dose: 100 mls/hr BUPIVACAINE 0.125%/0.9% NACL (Bupivacaine-Ns 0.125% On-Q Crocheter) 600 mls @ 4 mls/ hr IJ ONCE ONE Stop: 10/24/17 23:16 Fluconazole (Diflucan Iv 200 Mg/100 Ml Ns) 100 mls @ 100 mls/hr IVPB DAILY [facility] PRN Reason: Protocol Last Admin: 10/20/17 10:01 Dose: 100 mls/hr Potassium Chloride/Dextrose/Sod Cl (Potassium Chl 20 Meq In D5-1/2ns) 1,000 mls @ 100 mls/hr IV .Q10H [facility] Last Admin: 10/20/17 08:59 Dose: 100 mls/hr Ondansetron HCl (Zofran Inj) 4 mg IVP Q4 PRN PRN Reason: Nausea/Vomiting Pantoprazole Sodium (Protonix Inj) 40 mg IVP Q12H [facility] Last Admin: 10/20/17 01:02 Dose: 40 mg - Labs Labs: 10/20/17 06:13 10/20/17 06:13 PT 9.6 SECONDS (9.7-12.2) L 10/18/17 13:48 INR 0.9 10/18/17 13:48 APTT 27 SECONDS (21-34) 10/18/17 13:48 - Constitutional Appears: Non-toxic, No Acute Distress - Head Exam Head Exam: ATRAUMATIC, NORMOCEPHALIC - Eye Exam Eye Exam: EOMI - ENT Exam ENT Exam: Mucous Membranes Moist - Neck Exam Neck Exam: Full ROM - Respiratory Exam Respiratory Exam: absent: Accessory Muscle Use, Respiratory Distress - Cardiovascular Exam Cardiovascular Exam: REGULAR RHYTHM - GI/Abdominal Exam GI & Abdominal Exam: Soft. absent: Distended, Firm, Guarding, Rigid, Tenderness , Rebound - Neurological Exam Neurological Exam: Alert, Awake, Oriented x3 Assessment and Plan - Assessment and Plan (Free Text) Assessment: POD 1 sp exp lap partial gastrectomy Eulalio En Y gastrojejunostomy -NPO -IVF -c/w pain meds -c/w abx -UGI series in AM -d/w attending Yasmanyitis PGY4 <Nabil Quiros B - Last Filed: 10/23/17 15:02> Objective - Vital Signs/Intake and Output Vital Signs (last 24 hours): Temp Pulse Resp BP Pulse Ox 98.1 F 73 20 121/79 100 10/23/17 08:00 10/23/17 14:52 10/23/17 08:00 10/23/17 14:52 10/23/17 08:00 Intake and Output: 10/23/17 10/23/17 06:59 18:59 Intake Total 2440 1200 Output Total 121 Balance 2319 1200 - Medications Medications: Current Medications Acetaminophen (Tylenol 650 Mg Supp) 650 mg MO Q4 PRN PRN Reason: Fever >100.4 F Bacitracin (Bacitracin) 1 gm TOP BID [facility] Last Admin: 10/23/17 10:22 Dose: 1 oin Enoxaparin Sodium (Lovenox) 40 mg SC DAILY [facility] Last Admin: 10/23/17 10:21 Dose: 40 mg Hydromorphone HCl (Dilaudid) 1 mg IVP Q4H PRN PRN Reason: Pain, moderate (4-7) Last Admin: 10/23/17 14:53 Dose: 1 mg BUPIVACAINE 0.125%/0.9% NACL (Bupivacaine-Ns 0.125% On-Q Crocheter) 600 mls @ 4 mls/ hr IJ ONCE ONE Stop: 10/24/17 23:16 Fluconazole (Diflucan Iv 200 Mg/100 Ml Ns) 100 mls @ 100 mls/hr IVPB DAILY [facility] PRN Reason: Protocol Last Admin: 10/23/17 10:21 Dose: 100 mls/hr BUPIVACAINE 0.125%/0.9% NACL (Bupivacaine-Ns 0.125% On-Q Crocheter) 600 mls @ 4 mls/ hr IJ ONCE ONE Stop: 10/27/17 21:24 Last Admin: 10/21/17 18:11 Dose: Not Given Potassium Chloride/Dextrose/Sod Cl (Potassium Chl 40 Meq In D5-1/2ns) 1,000 mls @ 100 mls/hr IV .Q10H [facility] Last Admin: 10/23/17 09:00 Dose: Not Given Piperacillin Sod/Tazobactam (Sod 3.375 gm/ Sodium Chloride) 100 mls @ 200 mls/ hr IVPB Q6H [facility] PRN Reason: Protocol Last Admin: 10/23/17 11:51 Dose: 200 mls/hr Lorazepam (Ativan) 1 mg PO Q6 PRN PRN Reason: Anxiety Ondansetron HCl (Zofran Inj) 4 mg IVP Q4 PRN PRN Reason: Nausea/Vomiting Pantoprazole Sodium (Protonix Inj) 40 mg IVP DAILY [facility] Last Admin: 10/23/17 14:53 Dose: 40 mg Sertraline HCl (Zoloft) 50 mg PO DAILY [facility] Last Admin: 10/23/17 10:21 Dose: 50 mg Trazodone HCl (Desyrel) 50 mg PO HS [facility] Last Admin: 10/22/17 22:23 Dose: 50 mg - Labs Labs: 10/23/17 07:06 10/23/17 07:06 PT 9.6 SECONDS (9.7-12.2) L 10/18/17 13:48 INR 0.9 10/18/17 13:48 APTT 27 SECONDS (21-34) 10/18/17 13:48 Attending/Attestation - Attestation I have personally seen and examined this patient.: Yes I have fully participated in the care of the patient.: Yes I have reviewed all pertinent clinical information, including history, physical exam and plan: Yes Notes (Text): Pt was seen and examined at bedside Agree with above note and assessment Pt is improving clinically Renal failure is resolving C.w IV antibiotics c.w current mx Plan d.w pt in detail Risk and benefit explained in detail.
--- NOTE | 2017-10-20 23:33 | CARD ---
APPROVED REPORT EKG Measurement Heart [id number] <Conclusion> Normal sinus rhythm Possible Left atrial enlargement Left ventricular hypertrophy Abnormal ECG
[2017-10-21] MEDS: Piperacill/Tazo 3.375gm in Dex 3.375 GM/50 ML BAG IVPB SCH ×4 (01:49→14:02)
[2017-10-21] MEDS: HYDROmorphone 1 mg/ml ISec IVP PRN ×5 (01:58→21:23)
[2017-10-21] MEDS: Potassium Ch 20mEq in D5-1/2NS 1,000 ML IV SCH ×2 (04:13→14:01)
--- NOTE | 2017-10-21 08:45 | CP.PCM.PN ---
Subjective - Date & Time of Evaluation Date of Evaluation: 10/21/17 Time of Evaluation: 08:44 - Subjective Subjective: Internal Medicine Progress Note - Dr Marcos Service Patient seen and examined at bedside. Per nursing no acute events overnight. Patient is doing well, pain is controlled. NGT in place. She states that she is hungry. Offers no complaints at this time. Denies passing flatus or having a bowel movement. Denies headaches, dizziness, cp, palpitations, sob, urinary symptoms. Objective - Vital Signs/Intake and Output Vital Signs (last 24 hours): Temp Pulse Resp BP Pulse Ox 98.7 F 92 H 20 100/64 95 10/21/17 00:00 10/21/17 00:00 10/21/17 00:00 10/21/17 00:00 10/21/17 00:00 Intake and Output: 10/21/17 10/21/17 06:59 18:59 Intake Total 100 800 Output Total 60 0 Balance 40 800 - Medications Medications: Current Medications Acetaminophen (Tylenol 650 Mg Supp) 650 mg MT Q4 PRN PRN Reason: Fever >100.4 F Bacitracin (Bacitracin) 1 gm TOP BID [facility] Last Admin: 10/20/17 18:08 Dose: 1 oin Enoxaparin Sodium (Lovenox) 40 mg SC DAILY [facility] Last Admin: 10/20/17 10:03 Dose: 40 mg Hydromorphone HCl (Dilaudid) 1 mg IVP Q4H PRN PRN Reason: Pain, moderate (4-7) Last Admin: 10/21/17 01:58 Dose: 1 mg Piperacillin Sod/Tazobactam Sod (Zosyn 3.375 Gm Iv Premix) 3.375 gm in 50 mls @ 100 mls/hr IVPB Q6H [facility] PRN Reason: Protocol Last Admin: 10/21/17 01:49 Dose: 100 mls/hr BUPIVACAINE 0.125%/0.9% NACL (Bupivacaine-Ns 0.125% On-Q Chimney Repairer) 600 mls @ 4 mls/ hr IJ ONCE ONE Stop: 10/24/17 23:16 Fluconazole (Diflucan Iv 200 Mg/100 Ml Ns) 100 mls @ 100 mls/hr IVPB DAILY [facility] PRN Reason: Protocol Last Admin: 10/20/17 10:01 Dose: 100 mls/hr Potassium Chloride/Dextrose/Sod Cl (Potassium Chl 20 Meq In D5-1/2ns) 1,000 mls @ 100 mls/hr IV .Q10H [facility] Last Admin: 10/21/17 04:13 Dose: Not Given Lorazepam (Ativan) 1 mg PO Q6 PRN PRN Reason: Anxiety Ondansetron HCl (Zofran Inj) 4 mg IVP Q4 PRN PRN Reason: Nausea/Vomiting Pantoprazole Sodium (Protonix Inj) 40 mg IVP Q12H [facility] Last Admin: 10/21/17 01:50 Dose: 40 mg Sertraline HCl (Zoloft) 50 mg PO DAILY [facility] Trazodone HCl (Desyrel) 50 mg PO HS [facility] - Labs Labs: 10/20/17 06:13 10/20/17 06:13 PT 9.6 SECONDS (9.7-12.2) L 10/18/17 13:48 INR 0.9 10/18/17 13:48 APTT 27 SECONDS (21-34) 10/18/17 13:48 - Constitutional Appears: Non-toxic, No Acute Distress - Head Exam Head Exam: ATRAUMATIC, NORMAL INSPECTION, NORMOCEPHALIC - Eye Exam Eye Exam: EOMI, Normal appearance Pupil Exam: NORMAL ACCOMODATION - ENT Exam ENT Exam: Mucous Membranes Moist - Neck Exam Neck Exam: Full ROM - Respiratory Exam Respiratory Exam: Clear to Ausculation Bilateral, NORMAL BREATHING PATTERN. absent: Rales, Rhonchi, Wheezes - Cardiovascular Exam Cardiovascular Exam: REGULAR RHYTHM, +S1, +S2 - GI/Abdominal Exam GI & Abdominal Exam: Soft, Tenderness Additional comments: abdominal dressing c/d/i Left sided YEN drain with serosanginous drainage Right sided YEN drain with serosanginous drainage - Rectal Exam Rectal Exam: Deferred - Extremities Exam Extremities Exam: Normal Inspection - Back Exam Back Exam: NORMAL INSPECTION - Neurological Exam Neurological Exam: Alert, Awake, Oriented x3 - Psychiatric Exam Psychiatric exam: Normal Affect, Normal Mood - Skin Skin Exam: Dry, Normal Color, Warm Assessment and Plan - Assessment and Plan (Free Text) Assessment: A/P: Patient is 37 year old female with past medical history of substance abuse , HTN, depression who presented with abdominal pain, found to have free air in the abdomen with perforated viscus. Patient is s/p Ex lap with partial gastrectomy, zoraida en y gastrojejunostomy on October 18 2017 with general surgery. Severe Abdominal Pain, Perforated viscus -Stable, afebrile -s/p Ex lap with partial gastrectomy, zoraida en y gastrojejunostomy POD#3 -Patient is NPO -GI series ordered for today -Diet to be advanced by surgical team -Patient found with juices and wrapped up sandwich at the bedside. -Reinforced importance of maintaining NPO -Antibiotics: Zosyn 3.375 Q6H, Fluconazole 100mg daily -Blood cultures, body fluid cultures negative -Dilaudid prn pain -Encourage ambulation and ISS use -Monitor for return of bowel function -PT eval ordered Hypertension -Currently normatensive -Continue to monitor Anemia -S/P PRBCs -Hgb today 7.6, asymptomatic -Will continue to monitor History of Depression -Continue Zoloft 50mg PO dialy -Continue Trazadone 50mg PO HS -Psych on consult, help appreciated History of Substance abuse -Cessation advised GI/DVT ppx: -Protonix 40mg IVP daily -Lovenox 40mg SC daily Plan discussed with Dr Priti Hung DO PGY-2
[2017-10-21] MEDS: Fluconazole IV 200mg/100 ml NS 100 ML IVPB SCH (10:12)
[2017-10-21] MEDS: Enoxaparin 40 mg Syringe SC SCH (10:18)
[2017-10-21] MEDS: Bacitracin Ointment 30 GM TUBE TOP SCH ×2 (10:19→19:11)
--- NOTE | 2017-10-21 11:00 | CP.PCM.PN ---
<Seth Macario - Last Filed: 10/21/17 11:05> Subjective - Date & Time of Evaluation Date of Evaluation: 10/21/17 Time of Evaluation: 08:00 - Subjective Subjective: Patient seen and examined. No acute events over night. Denies abdominal pain. Denies passing flatus, nausea/vomiting. Afebrile. YEN drain with scant serosanguinous output b/l. Objective - Vital Signs/Intake and Output Vital Signs (last 24 hours): Temp Pulse Resp BP Pulse Ox 98.7 F 92 H 20 100/64 95 10/21/17 00:00 10/21/17 00:00 10/21/17 00:00 10/21/17 00:00 10/21/17 00:00 Intake and Output: 10/21/17 10/21/17 06:59 18:59 Intake Total 100 800 Output Total 60 0 Balance 40 800 - Medications Medications: Current Medications Acetaminophen (Tylenol 650 Mg Supp) 650 mg RI Q4 PRN PRN Reason: Fever >100.4 F Bacitracin (Bacitracin) 1 gm TOP BID [facility] Last Admin: 10/21/17 10:19 Dose: 1 oin Enoxaparin Sodium (Lovenox) 40 mg SC DAILY [facility] Last Admin: 10/21/17 10:18 Dose: 40 mg Hydromorphone HCl (Dilaudid) 1 mg IVP Q4H PRN PRN Reason: Pain, moderate (4-7) Last Admin: 10/21/17 08:44 Dose: 1 mg Piperacillin Sod/Tazobactam Sod (Zosyn 3.375 Gm Iv Premix) 3.375 gm in 50 mls @ 100 mls/hr IVPB Q6H [facility] PRN Reason: Protocol Last Admin: 10/21/17 08:00 Dose: 100 mls/hr BUPIVACAINE 0.125%/0.9% NACL (Bupivacaine-Ns 0.125% On-Q Fourth Hand) 600 mls @ 4 mls/ hr IJ ONCE ONE Stop: 10/24/17 23:16 Fluconazole (Diflucan Iv 200 Mg/100 Ml Ns) 100 mls @ 100 mls/hr IVPB DAILY [facility] PRN Reason: Protocol Last Admin: 10/21/17 10:12 Dose: 100 mls/hr Potassium Chloride/Dextrose/Sod Cl (Potassium Chl 20 Meq In D5-1/2ns) 1,000 mls @ 100 mls/hr IV .Q10H [facility] Last Admin: 10/21/17 04:13 Dose: Not Given Lorazepam (Ativan) 1 mg PO Q6 PRN PRN Reason: Anxiety Ondansetron HCl (Zofran Inj) 4 mg IVP Q4 PRN PRN Reason: Nausea/Vomiting Pantoprazole Sodium (Protonix Inj) 40 mg IVP Q12H [facility] Last Admin: 10/21/17 01:50 Dose: 40 mg Sertraline HCl (Zoloft) 50 mg PO DAILY [facility] Last Admin: 10/21/17 10:17 Dose: 50 mg Trazodone HCl (Desyrel) 50 mg PO HS [facility] - Labs Labs: 10/20/17 06:13 10/20/17 06:13 PT 9.6 SECONDS (9.7-12.2) L 10/18/17 13:48 INR 0.9 10/18/17 13:48 APTT 27 SECONDS (21-34) 10/18/17 13:48 - Constitutional Appears: Non-toxic, No Acute Distress - Head Exam Head Exam: NORMOCEPHALIC - Eye Exam Eye Exam: EOMI, Normal appearance - ENT Exam ENT Exam: Mucous Membranes Moist - Respiratory Exam Respiratory Exam: NORMAL BREATHING PATTERN - Cardiovascular Exam Cardiovascular Exam: +S1, +S2 - GI/Abdominal Exam GI & Abdominal Exam: Soft. absent: Distended, Guarding, Rigid, Tenderness, Rebound - Neurological Exam Neurological Exam: Alert, Awake, Oriented x3 - Psychiatric Exam Psychiatric exam: Normal Mood - Skin Skin Exam: Dry, Intact, Warm Assessment and Plan - Assessment and Plan (Free Text) Assessment: sp ex lap partial gastrectomy Eulalio En Y gastrojejunostomy POD3 -NPO -IVF -c/w pain meds -c/w abx -F/u UGIS -DVT ppx -Encourage incentive spirometer use and ambulation -F/u AM labs -D/w Dr. Chula Cesar PGY3 <Nabil Quiros - Last Filed: 10/23/17 15:18> Objective - Vital Signs/Intake and Output Vital Signs (last 24 hours): Temp Pulse Resp BP Pulse Ox 98.1 F 73 20 121/79 100 10/23/17 08:00 07/05/18 14:52 10/23/17 08:00 10/23/17 14:52 10/23/17 08:00 Intake and Output: 10/23/17 10/23/17 06:59 18:59 Intake Total 2440 1200 Output Total 121 Balance 2319 1200 - Medications Medications: Current Medications Acetaminophen (Tylenol 650 Mg Supp) 650 mg RI Q4 PRN PRN Reason: Fever >100.4 F Bacitracin (Bacitracin) 1 gm TOP BID [facility] Last Admin: 10/23/17 10:22 Dose: 1 oin Enoxaparin Sodium (Lovenox) 40 mg SC DAILY [facility] Last Admin: 10/23/17 10:21 Dose: 40 mg Hydromorphone HCl (Dilaudid) 1 mg IVP Q4H PRN PRN Reason: Pain, moderate (4-7) Last Admin: 10/23/17 14:53 Dose: 1 mg BUPIVACAINE 0.125%/0.9% NACL (Bupivacaine-Ns 0.125% On-Q Fourth Hand) 600 mls @ 4 mls/ hr IJ ONCE ONE Stop: 10/24/17 23:16 Fluconazole (Diflucan Iv 200 Mg/100 Ml Ns) 100 mls @ 100 mls/hr IVPB DAILY [facility] PRN Reason: Protocol Last Admin: 10/23/17 10:21 Dose: 100 mls/hr BUPIVACAINE 0.125%/0.9% NACL (Bupivacaine-Ns 0.125% On-Q Fourth Hand) 600 mls @ 4 mls/ hr IJ ONCE ONE Stop: 10/27/17 21:24 Last Admin: 10/21/17 18:11 Dose: Not Given Potassium Chloride/Dextrose/Sod Cl (Potassium Chl 40 Meq In D5-1/2ns) 1,000 mls @ 100 mls/hr IV .Q10H [facility] Last Admin: 10/23/17 09:00 Dose: Not Given Piperacillin Sod/Tazobactam (Sod 3.375 gm/ Sodium Chloride) 100 mls @ 200 mls/ hr IVPB Q6H [facility] PRN Reason: Protocol Last Admin: 10/23/17 11:51 Dose: 200 mls/hr Lorazepam (Ativan) 1 mg PO Q6 PRN PRN Reason: Anxiety Ondansetron HCl (Zofran Inj) 4 mg IVP Q4 PRN PRN Reason: Nausea/Vomiting Pantoprazole Sodium (Protonix Inj) 40 mg IVP DAILY [facility] Last Admin: 10/23/17 14:53 Dose: 40 mg Sertraline HCl (Zoloft) 50 mg PO DAILY [facility] Last Admin: 10/23/17 10:21 Dose: 50 mg Trazodone HCl (Desyrel) 50 mg PO HS [facility] Last Admin: 10/22/17 22:23 Dose: 50 mg - Labs Labs: 10/23/17 07:06 10/23/17 07:06 PT 9.6 SECONDS (9.7-12.2) L 10/18/17 13:48 INR 0.9 10/18/17 13:48 APTT 27 SECONDS (21-34) 10/18/17 13:48 Attending/Attestation - Attestation I have personally seen and examined this patient.: Yes I have fully participated in the care of the patient.: Yes I have reviewed all pertinent clinical information, including history, physical exam and plan: Yes Notes (Text): Pt was seen and examined at bedside Agree with above note and assessment Pt is improving clinically Renal failure is improving NG to LIS NPO, IVF Gastrograffin study on POD 4 OOB to chair Plan d.w pt in detail Risk and benefit explained in detail.
[2017-10-21 11:08] LABS: BASO % 0.2 % (0.0-2.0); EOS # 0.3 K/uL (0.0-0.7); EOS % 1.9 % (0.0-4.0); HEMOGLOBIN 7.6 g/dL (11.0-16.0); LYMPH # 0.5 K/uL (1.0-4.3); LYMPH % 2.8 % (20.0-40.0); MEAN CORPUSCULAR HEMOGLOBIN 26.7 pg (27.0-31.0); MEAN CORPUSCULAR HGB CONC 32.6 g/dL (33.0-37.0); MEAN PLATELET VOLUME 7.4 fL (7.2-11.7); MONO # 0.7 K/uL (0.0-0.8); MONO % 4.5 % (0.0-10.0); NEUT # 15.2 K/uL (1.8-7.0); NEUT % 90.6 % (50.0-75.0); PLATELET COUNT 555 K/uL (130-400); RBC 2.84 Mil/uL (3.80-5.20); RED CELL DISTRIBUTION WIDTH 16.4 % (11.5-14.5); WHITE BLOOD COUNT 16.8 K/uL (4.8-10.8)
[2017-10-21 12:03] LABS: BLOOD UREA NITROGEN 15 mg/dL (7-17); CALCIUM 8.3 mg/dl (8.6-10.4); GFR AFRICAN-AMERICAN > 60; GFR NON-AFRICAN AMERICAN 55
[2017-10-21] MEDS ORDERED: Iohexol 240 200 ML ONE (12:20)
[2017-10-21 13:35] LABS: ANISOCYTOSIS SLIGHT; BANDS 1 % (0-2); EOSINOPHIL 3 % (0-4); HYPOCHROMIC SLIGHT; LYMPHOCYTE 1 % (20-40); MONOCYTE 5 % (0-10); NEUTROPHIL 90 % (50-75); PLATELET ESTIMATE INCREASED (NORMAL); TOTAL CELLS COUNTED 100
--- NOTE | 2017-10-21 14:09 | RAD ---
PROCEDURE: Limited upper GI series HISTORY: evaluation of anastomosis COMPARISON: Not available TECHNIQUE: A limited upper GI series was performed utilizing water soluble contrast material, administered via nasogastric tube. FINDINGS: A [employer] footballer radiograph of the abdomen demonstrates an unremarkable bowel gas pattern. There is a right-sided surgical drain extending the midline. A nasogastric tube is seen extending to the left upper quadrant of the abdomen. No masses or abnormal calcifications are identified. There is extensive suture material seen at the level of the gastrojejunostomy. Contrast material is seen to fill the stomach without evidence of mass or ulceration, grossly. The gastrojejunostomy is intact without evidence of anastomotic leakage. The proximal jejunum is unremarkable in appearance. IMPRESSION: Status post partial gastrectomy with gastrojejunostomy. No evidence of anastomotic leakage.
[2017-10-21] MEDS ORDERED: BUPIVACAINE 0.125%/0.9% NACL 600 ML IJ ONE (15:25)
[2017-10-21] MEDS: Potassium Chl 40 mEq in D5-1/2 1,000 ML IV SCH (17:36)
[2017-10-21] MEDS: Piperacillin/Tazobact 3.375 GM in Sodium Chloride 100 ML IVPB SCH (19:10)
[2017-10-22] MEDS: Piperacillin/Tazobact 3.375 GM in Sodium Chloride 100 ML IVPB SCH ×5 (00:22→23:59)
[2017-10-22] MEDS: HYDROmorphone 1 mg/ml ISec IVP PRN ×6 (01:38→22:23)
[2017-10-22] MEDS: Potassium Chl 40 mEq in D5-1/2 1,000 ML IV SCH ×4 (02:08→22:35)
--- NOTE | 2017-10-22 07:55 | CP.PCM.PN ---
<ClarissaChito - Last Filed: 10/22/17 10:13> Subjective - Date & Time of Evaluation Date of Evaluation: 10/22/17 Time of Evaluation: 07:00 - Subjective Subjective: General Surgery Progress Note for Dr. Quiros 37F patient seen and examined this AM. Per nurse, Pt has continuously refused to adhere to an NPO diet. Sandwiches, soda, and jello were at bedside. The NGT was not properly attached and per nurse pt refused to let them turn on suction. Pt c/o loose, liquidy stools overnight. Denies abdominal pain. Denies passing flatus, nausea/vomiting. YEN drain with scant serosanguinous output b/l. Objective - Vital Signs/Intake and Output Vital Signs (last 24 hours): Temp Pulse Resp BP Pulse Ox 99.5 F 89 20 128/79 95 10/21/17 23:00 10/21/17 23:00 10/21/17 23:00 10/21/17 23:00 10/21/17 23:00 Intake and Output: 10/22/17 10/22/17 06:59 18:59 Output Total 80 Balance -80 - Medications Medications: Current Medications Acetaminophen (Tylenol 650 Mg Supp) 650 mg [place] Q4 PRN PRN Reason: Fever >100.4 F Bacitracin (Bacitracin) 1 gm TOP BID [facility] Last Admin: 10/21/17 19:11 Dose: 1 oin Enoxaparin Sodium (Lovenox) 40 mg SC DAILY [facility] Last Admin: 10/21/17 10:18 Dose: 40 mg Hydromorphone HCl (Dilaudid) 1 mg IVP Q4H PRN PRN Reason: Pain, moderate (4-7) Last Admin: 10/22/17 05:46 Dose: 1 mg BUPIVACAINE 0.125%/0.9% NACL (Bupivacaine-Ns 0.125% On-Q Mail Manager) 600 mls @ 4 mls/ hr IJ ONCE ONE Stop: 10/24/17 23:16 Fluconazole (Diflucan Iv 200 Mg/100 Ml Ns) 100 mls @ 100 mls/hr IVPB DAILY [facility] PRN Reason: Protocol Last Admin: 10/21/17 10:12 Dose: 100 mls/hr BUPIVACAINE 0.125%/0.9% NACL (Bupivacaine-Ns 0.125% On-Q Mail Manager) 600 mls @ 4 mls/ hr IJ ONCE ONE Stop: 10/27/17 21:24 Last Admin: 10/21/17 18:11 Dose: Not Given Potassium Chloride/Dextrose/Sod Cl (Potassium Chl 40 Meq In D5-1/2ns) 1,000 mls @ 100 mls/hr IV .Q10H [facility] Last Admin: 10/22/17 04:34 Dose: 100 mls/hr Piperacillin Sod/Tazobactam (Sod 3.375 gm/ Sodium Chloride) 100 mls @ 200 mls/ hr IVPB Q6H [facility] PRN Reason: Protocol Last Admin: 10/22/17 05:54 Dose: 200 mls/hr Lorazepam (Ativan) 1 mg PO Q6 PRN PRN Reason: Anxiety Ondansetron HCl (Zofran Inj) 4 mg IVP Q4 PRN PRN Reason: Nausea/Vomiting Pantoprazole Sodium (Protonix Inj) 40 mg IVP DAILY [facility] Sertraline HCl (Zoloft) 50 mg PO DAILY [facility] Last Admin: 10/21/17 10:17 Dose: Not Given Trazodone HCl (Desyrel) 50 mg PO HS [facility] Last Admin: 10/21/17 21:23 Dose: 50 mg - Labs Labs: 10/21/17 10:58 10/21/17 10:58 PT 9.6 SECONDS (9.7-12.2) L 10/18/17 13:48 INR 0.9 10/18/17 13:48 APTT 27 SECONDS (21-34) 10/18/17 13:48 - Constitutional Appears: Well - Head Exam Head Exam: ATRAUMATIC, NORMAL INSPECTION, NORMOCEPHALIC - Eye Exam Eye Exam: EOMI, Normal appearance, PERRL - Respiratory Exam Respiratory Exam: Clear to Ausculation Bilateral, NORMAL BREATHING PATTERN - Cardiovascular Exam Cardiovascular Exam: REGULAR RHYTHM, +S1, +S2. absent: Murmur - GI/Abdominal Exam GI & Abdominal Exam: Soft, Normal Bowel Sounds. absent: Distended, Firm, Guarding, Rigid, Tenderness, Rebound Additional comments: Dressing c/d/i with no surrounding drainage or erythema. YEN drains in place with scant serosanguinous output. - Neurological Exam Neurological Exam: Alert, Awake Assessment and Plan - Assessment and Plan (Free Text) Assessment: 37F POD4 s/p ex lap Eulalio en Y Plan: c/w pain control d/w patient heavily about maintaining NPO diet d/c NGT start on CLD as tolerated c.diff ordered 2/2 complaint of loose stools Further recs per Dr. Chula Romo PGY1 <Nabil Quiros B - Last Filed: 10/23/17 15:27> Objective - Vital Signs/Intake and Output Vital Signs (last 24 hours): Temp Pulse Resp BP Pulse Ox 98.1 F 73 20 121/79 100 10/23/17 08:00 10/23/17 14:52 10/23/17 08:00 10/23/17 14:52 10/23/17 08:00 Intake and Output: 10/23/17 10/23/17 06:59 18:59 Intake Total 2440 1200 Output Total 121 Balance 2319 1200 - Medications Medications: Current Medications Acetaminophen (Tylenol 650 Mg Supp) 650 mg [place] Q4 PRN PRN Reason: Fever >100.4 F Bacitracin (Bacitracin) 1 gm TOP BID [facility] Last Admin: 10/23/17 10:22 Dose: 1 oin Enoxaparin Sodium (Lovenox) 40 mg SC DAILY [facility] Last Admin: 10/23/17 10:21 Dose: 40 mg Hydromorphone HCl (Dilaudid) 1 mg IVP Q4H PRN PRN Reason: Pain, moderate (4-7) Last Admin: 10/23/17 14:53 Dose: 1 mg BUPIVACAINE 0.125%/0.9% NACL (Bupivacaine-Ns 0.125% On-Q Mail Manager) 600 mls @ 4 mls/ hr IJ ONCE ONE Stop: 10/24/17 23:16 Fluconazole (Diflucan Iv 200 Mg/100 Ml Ns) 100 mls @ 100 mls/hr IVPB DAILY [facility] PRN Reason: Protocol Last Admin: 10/23/17 10:21 Dose: 100 mls/hr BUPIVACAINE 0.125%/0.9% NACL (Bupivacaine-Ns 0.125% On-Q Mail Manager) 600 mls @ 4 mls/ hr IJ ONCE ONE Stop: 10/27/17 21:24 Last Admin: 10/21/17 18:11 Dose: Not Given Potassium Chloride/Dextrose/Sod Cl (Potassium Chl 40 Meq In D5-1/2ns) 1,000 mls @ 100 mls/hr IV .Q10H [facility] Last Admin: 10/23/17 09:00 Dose: Not Given Piperacillin Sod/Tazobactam (Sod 3.375 gm/ Sodium Chloride) 100 mls @ 200 mls/ hr IVPB Q6H [facility] PRN Reason: Protocol Last Admin: 10/23/17 11:51 Dose: 200 mls/hr Lorazepam (Ativan) 1 mg PO Q6 PRN PRN Reason: Anxiety Ondansetron HCl (Zofran Inj) 4 mg IVP Q4 PRN PRN Reason: Nausea/Vomiting Pantoprazole Sodium (Protonix Inj) 40 mg IVP DAILY [facility] Last Admin: 10/23/17 14:53 Dose: 40 mg Sertraline HCl (Zoloft) 50 mg PO DAILY [facility] Last Admin: 10/23/17 10:21 Dose: 50 mg Trazodone HCl (Desyrel) 50 mg PO HS [facility] Last Admin: 10/22/17 22:23 Dose: 50 mg - Labs Labs: 10/23/17 07:06 10/23/17 07:06 PT 9.6 SECONDS (9.7-12.2) L 10/18/17 13:48 INR 0.9 10/18/17 13:48 APTT 27 SECONDS (21-34) 10/18/17 13:48 Attending/Attestation - Attestation I have personally seen and examined this patient.: Yes I have fully participated in the care of the patient.: Yes I have reviewed all pertinent clinical information, including history, physical exam and plan: Yes Notes (Text): Pt is improving clinically Renal failure is resolved Replace potassium Liquid diet DC NG tube GG study is suggestive of no leak Plan d.w pt in detail.
[2017-10-22] MEDS: Fluconazole IV 200mg/100 ml NS 100 ML IVPB SCH (09:25)
[2017-10-22] MEDS: Enoxaparin 40 mg Syringe SC SCH ×2 (09:26→09:37)
[2017-10-22] MEDS: Bacitracin Ointment 30 GM TUBE TOP SCH ×2 (09:27→18:38)
[2017-10-23] MEDS: HYDROmorphone 1 mg/ml ISec IVP PRN ×6 (02:34→22:53)
[2017-10-23] MEDS: Piperacillin/Tazobact 3.375 GM in Sodium Chloride 100 ML IVPB SCH ×3 (05:38→17:28)
[2017-10-23] MEDS: Potassium Chl 40 mEq in D5-1/2 1,000 ML IV SCH ×2 (06:28→09:00)
--- NOTE | 2017-10-23 07:28 | CP.PCM.PN ---
Subjective - Date & Time of Evaluation Date of Evaluation: 10/23/17 Time of Evaluation: 07:27 - Subjective Subjective: Progress Note for Dr. Marcos's Service Pt seen and examined at bedside this morning. She is tolerating PO intake with CLD. She denies nausea, vomiting, abdominal pain today. She has been passing stool that she reports is becoming more formed as opposed to water as it was prior. No acute events as per nursing staff. Objective - Vital Signs/Intake and Output Vital Signs (last 24 hours): Temp Pulse Resp BP Pulse Ox 98.3 F 94 H 20 123/80 99 10/23/17 04:45 10/23/17 04:45 10/23/17 04:45 10/23/17 04:45 10/23/17 04:45 Intake and Output: 10/23/17 10/23/17 06:59 18:59 Intake Total 2440 Output Total 121 Balance 2319 - Medications Medications: Current Medications Acetaminophen (Tylenol 650 Mg Supp) 650 mg [place] Q4 PRN PRN Reason: Fever >100.4 F Bacitracin (Bacitracin) 1 gm TOP BID [facility] Last Admin: 10/22/17 18:38 Dose: 1 oin Enoxaparin Sodium (Lovenox) 40 mg SC DAILY [facility] Last Admin: 10/22/17 09:37 Dose: Not Given Hydromorphone HCl (Dilaudid) 1 mg IVP Q4H PRN PRN Reason: Pain, moderate (4-7) Last Admin: 10/23/17 06:29 Dose: 1 mg BUPIVACAINE 0.125%/0.9% NACL (Bupivacaine-Ns 0.125% On-Q Customs House Broker) 600 mls @ 4 mls/ hr IJ ONCE ONE Stop: 10/24/17 23:16 Fluconazole (Diflucan Iv 200 Mg/100 Ml Ns) 100 mls @ 100 mls/hr IVPB DAILY [facility] PRN Reason: Protocol Last Admin: 10/22/17 09:25 Dose: 100 mls/hr BUPIVACAINE 0.125%/0.9% NACL (Bupivacaine-Ns 0.125% On-Q Customs House Broker) 600 mls @ 4 mls/ hr IJ ONCE ONE Stop: 10/27/17 21:24 Last Admin: 10/21/17 18:11 Dose: Not Given Potassium Chloride/Dextrose/Sod Cl (Potassium Chl 40 Meq In D5-1/2ns) 1,000 mls @ 100 mls/hr IV .Q10H [facility] Last Admin: 10/23/17 06:28 Dose: 100 mls/hr Piperacillin Sod/Tazobactam (Sod 3.375 gm/ Sodium Chloride) 100 mls @ 200 mls/ hr IVPB Q6H [facility] PRN Reason: Protocol Last Admin: 10/23/17 05:38 Dose: 200 mls/hr Lorazepam (Ativan) 1 mg PO Q6 PRN PRN Reason: Anxiety Ondansetron HCl (Zofran Inj) 4 mg IVP Q4 PRN PRN Reason: Nausea/Vomiting Pantoprazole Sodium (Protonix Inj) 40 mg IVP DAILY [facility] Last Admin: 10/22/17 09:42 Dose: 40 mg Sertraline HCl (Zoloft) 50 mg PO DAILY [facility] Last Admin: 10/22/17 09:26 Dose: 50 mg Trazodone HCl (Desyrel) 50 mg PO HS [facility] Last Admin: 10/22/17 22:23 Dose: 50 mg - Labs Labs: 10/21/17 10:58 10/21/17 10:58 PT 9.6 SECONDS (9.7-12.2) L 10/18/17 13:48 INR 0.9 10/18/17 13:48 APTT 27 SECONDS (21-34) 10/18/17 13:48 - Head Exam Head Exam: ATRAUMATIC, NORMOCEPHALIC - Eye Exam Eye Exam: EOMI - ENT Exam Additional comments: poor dentition - Respiratory Exam Respiratory Exam: Clear to Ausculation Bilateral, NORMAL BREATHING PATTERN - Cardiovascular Exam Cardiovascular Exam: REGULAR RHYTHM, +S1, +S2 - GI/Abdominal Exam GI & Abdominal Exam: Soft, Tenderness (mild). absent: Distended, Firm, Guarding , Rigid - Neurological Exam Neurological Exam: Alert, Awake, Oriented x3 - Psychiatric Exam Psychiatric exam: Normal Affect, Normal Mood - Skin Skin Exam: Dry, Warm Assessment and Plan - Assessment and Plan (Free Text) Plan: Severe Abdominal Pain, Perforated viscus- clinically improved -Stable, afebrile Surgical Consult to Dr. Hope- recs appreciated s/p Ex lap with partial gastrectomy, zoraida en y gastrojejunostomy POD#5 CLD c/w pain control Encourage incentive spirometer use and ambulation Further recs per Dr. Quiros -Patient is tolerating CLD -GI series- no obstruction -Patient found with juices and wrapped up sandwich at the bedside- general non- compliance with diet -Zosyn 3.375 Q6H start 10/21 -Fluconazole 100mg daily start 10/20 -Blood cultures negative -Peritoneal fluid cx: yeast species -Dilaudid prn pain -Encourage ambulation and ISS use -Monitor for return of bowel function -PT eval ordered Hypertension -Currently normatensive -Continue to monitor Anemia -S/P PRBCs -Hgb today 7.6, asymptomatic -Will continue to monitor History of Depression -Continue Zoloft 50mg PO dialy -Continue Trazadone 50mg PO HS -Psych on consult, help appreciated History of Substance abuse -Cessation advised GI/DVT ppx: -Protonix 40mg IVP daily -Lovenox 40mg SC daily This patient is being prepped for D/C with concern for senior living iv abx. She has a hx of iv drug abuse and great precaution needs to be taken. She has refused transfer to a care facility. Follow up ID recs for need for abx and plan accordingly. Case discussed with Dr Marcos All medical management as per Dr. Priti Wiley D.O.
[2017-10-23 07:35] LABS: BASO % 0.3 % (0.0-2.0); EOS # 0.4 K/uL (0.0-0.7); EOS % 3.8 % (0.0-4.0); HEMOGLOBIN 7.6 g/dL (11.0-16.0); LYMPH # 0.9 K/uL (1.0-4.3); LYMPH % 8.2 % (20.0-40.0); MEAN CELL VOLUME 81.5 fL (81.0-99.0); MEAN CORPUSCULAR HEMOGLOBIN 26.7 pg (27.0-31.0); MEAN CORPUSCULAR HGB CONC 32.8 g/dL (33.0-37.0); MEAN PLATELET VOLUME 7.7 fL (7.2-11.7); MONO # 1.4 K/uL (0.0-0.8); MONO % 12.6 % (0.0-10.0); NEUT # 8.2 K/uL (1.8-7.0); NEUT % 75.1 % (50.0-75.0); PLATELET COUNT 621 K/uL (130-400); RBC 2.82 Mil/uL (3.80-5.20); RED CELL DISTRIBUTION WIDTH 16.6 % (11.5-14.5)
--- NOTE | 2017-10-23 07:41 | CP.PCM.PN ---
Subjective - Date & Time of Evaluation Date of Evaluation: 10/23/17 Time of Evaluation: 06:20 - Subjective Subjective: Patient seen and examined. Tolerating liquid diet. Denies any abdominal pain, nausea/vomiting. Objective - Vital Signs/Intake and Output Vital Signs (last 24 hours): Temp Pulse Resp BP Pulse Ox 98.3 F 94 H 20 123/80 99 10/23/17 04:45 10/23/17 04:45 10/23/17 04:45 10/23/17 04:45 10/23/17 04:45 Intake and Output: 10/23/17 10/23/17 06:59 18:59 Intake Total 2440 Output Total 121 Balance 2319 - Medications Medications: Current Medications Acetaminophen (Tylenol 650 Mg Supp) 650 mg [place] Q4 PRN PRN Reason: Fever >100.4 F Bacitracin (Bacitracin) 1 gm TOP BID [facility] Last Admin: 10/22/17 18:38 Dose: 1 oin Enoxaparin Sodium (Lovenox) 40 mg SC DAILY [facility] Last Admin: 10/22/17 09:37 Dose: Not Given Hydromorphone HCl (Dilaudid) 1 mg IVP Q4H PRN PRN Reason: Pain, moderate (4-7) Last Admin: 10/23/17 06:29 Dose: 1 mg BUPIVACAINE 0.125%/0.9% NACL (Bupivacaine-Ns 0.125% On-Q Repairer Controller Tester) 600 mls @ 4 mls/ hr IJ ONCE ONE Stop: 10/24/17 23:16 Fluconazole (Diflucan Iv 200 Mg/100 Ml Ns) 100 mls @ 100 mls/hr IVPB DAILY [facility] PRN Reason: Protocol Last Admin: 10/22/17 09:25 Dose: 100 mls/hr BUPIVACAINE 0.125%/0.9% NACL (Bupivacaine-Ns 0.125% On-Q Repairer Controller Tester) 600 mls @ 4 mls/ hr IJ ONCE ONE Stop: 10/27/17 21:24 Last Admin: 10/21/17 18:11 Dose: Not Given Potassium Chloride/Dextrose/Sod Cl (Potassium Chl 40 Meq In D5-1/2ns) 1,000 mls @ 100 mls/hr IV .Q10H [facility] Last Admin: 10/23/17 06:28 Dose: 100 mls/hr Piperacillin Sod/Tazobactam (Sod 3.375 gm/ Sodium Chloride) 100 mls @ 200 mls/ hr IVPB Q6H [facility] PRN Reason: Protocol Last Admin: 10/23/17 05:38 Dose: 200 mls/hr Lorazepam (Ativan) 1 mg PO Q6 PRN PRN Reason: Anxiety Ondansetron HCl (Zofran Inj) 4 mg IVP Q4 PRN PRN Reason: Nausea/Vomiting Pantoprazole Sodium (Protonix Inj) 40 mg IVP DAILY [facility] Last Admin: 10/22/17 09:42 Dose: 40 mg Sertraline HCl (Zoloft) 50 mg PO DAILY [facility] Last Admin: 10/22/17 09:26 Dose: 50 mg Trazodone HCl (Desyrel) 50 mg PO HS [facility] Last Admin: 10/22/17 22:23 Dose: 50 mg - Labs Labs: 10/23/17 07:06 10/21/17 10:58 PT 9.6 SECONDS (9.7-12.2) L 10/18/17 13:48 INR 0.9 10/18/17 13:48 APTT 27 SECONDS (21-34) 10/18/17 13:48 Assessment and Plan - Assessment and Plan (Free Text) Assessment: 37F POD5 s/p ex lap Eulalio en Y Plan: Pureed diet c/w pain control Encourage incentive spirometer use and ambulation Further recs per Dr. Chula Cesar PGY3
[2017-10-23 08:11] LABS: ALB/GLOB RATIO 0.9 (1.0-2.1); ALBUMIN 2.4 g/dL (3.5-5.0); ALT/SGPT 40 U/L (9-52); AST/SGOT 28 U/L (14-36); BLOOD UREA NITROGEN 6 mg/dL (7-17); CALCIUM 8.3 mg/dl (8.6-10.4); GFR AFRICAN-AMERICAN > 60; GFR NON-AFRICAN AMERICAN > 60
[2017-10-23 09:48] LABS: ANISOCYTOSIS SLIGHT; BASOPHIL 1 % (0-2); EOSINOPHIL 4 % (0-4); LYMPHOCYTE 6 % (20-40); MONOCYTE 10 % (0-10); NEUTROPHIL 79 % (50-75); PLATELET ESTIMATE INCREASED (NORMAL); TOTAL CELLS COUNTED 100
[2017-10-23 10:01] LABS: HYPOCHROMIC SLIGHT; LARGE PLATELETS PRESENT
[2017-10-23] MEDS: Enoxaparin 40 mg Syringe SC SCH (10:21)
[2017-10-23] MEDS: Fluconazole IV 200mg/100 ml NS 100 ML IVPB SCH (10:21)
[2017-10-23] MEDS: Bacitracin Ointment 30 GM TUBE TOP SCH ×2 (10:22→17:29)
[2017-10-24] MEDS: Piperacillin/Tazobact 3.375 GM in Sodium Chloride 100 ML IVPB SCH ×5 (00:42→23:46)
[2017-10-24] MEDS: HYDROmorphone 1 mg/ml ISec IVP PRN ×2 (03:06→06:58)
[2017-10-24 07:03] LABS: BASO % 0.4 % (0.0-2.0); EOS # 0.4 K/uL (0.0-0.7); EOS % 4.1 % (0.0-4.0); HEMOGLOBIN 8.1 g/dL (11.0-16.0); LYMPH # 0.9 K/uL (1.0-4.3); LYMPH % 8.9 % (20.0-40.0); MEAN CELL VOLUME 80.4 fL (81.0-99.0); MEAN CORPUSCULAR HEMOGLOBIN 26.3 pg (27.0-31.0); MEAN CORPUSCULAR HGB CONC 32.7 g/dL (33.0-37.0); MEAN PLATELET VOLUME 7.8 fL (7.2-11.7); MONO # 1.4 K/uL (0.0-0.8); MONO % 13.5 % (0.0-10.0); NEUT # 7.3 K/uL (1.8-7.0); NEUT % 73.1 % (50.0-75.0); PLATELET COUNT 645 K/uL (130-400); RBC 3.08 Mil/uL (3.80-5.20); RED CELL DISTRIBUTION WIDTH 16.8 % (11.5-14.5)
--- NOTE | 2017-10-24 07:07 | CP.PCM.PN ---
Subjective - Date & Time of Evaluation Date of Evaluation: 10/24/17 Time of Evaluation: 07:07 - Subjective Subjective: Internal Medicine Progress Note - Dr Marcos Service Patient seen and examined at bedside. Per nursing no acute events overnight. Patient is doing well, tolerating diet. Passing flatus and had a BM. Offers no complaints at this time. Denies headaches, dizziness, cp, palpitations, sob, urinary symptoms. Objective - Vital Signs/Intake and Output Vital Signs (last 24 hours): Temp Pulse Resp BP Pulse Ox 98.5 F 73 20 111/68 98 10/23/17 23:52 10/23/17 23:52 10/23/17 23:52 10/23/17 23:52 10/23/17 23:52 Intake and Output: 10/24/17 10/24/17 06:59 18:59 Intake Total 1320 Output Total 171 Balance 1149 - Medications Medications: Current Medications Acetaminophen (Tylenol 650 Mg Supp) 650 mg [place] Q4 PRN PRN Reason: Fever >100.4 F Bacitracin (Bacitracin) 1 gm TOP BID [facility] Last Admin: 10/23/17 17:29 Dose: 1 oin Enoxaparin Sodium (Lovenox) 40 mg SC DAILY [facility] Last Admin: 10/23/17 10:21 Dose: 40 mg Hydromorphone HCl (Dilaudid) 1 mg IVP Q4H PRN PRN Reason: Pain, moderate (4-7) Last Admin: 10/24/17 06:58 Dose: 1 mg BUPIVACAINE 0.125%/0.9% NACL (Bupivacaine-Ns 0.125% On-Q Dry Folder Cloth) 600 mls @ 4 mls/ hr IJ ONCE ONE Stop: 10/24/17 23:16 Fluconazole (Diflucan Iv 200 Mg/100 Ml Ns) 100 mls @ 100 mls/hr IVPB DAILY [facility] PRN Reason: Protocol Last Admin: 10/23/17 10:21 Dose: 100 mls/hr BUPIVACAINE 0.125%/0.9% NACL (Bupivacaine-Ns 0.125% On-Q Dry Folder Cloth) 600 mls @ 4 mls/ hr IJ ONCE ONE Stop: 10/27/17 21:24 Last Admin: 10/21/17 18:11 Dose: Not Given Piperacillin Sod/Tazobactam (Sod 3.375 gm/ Sodium Chloride) 100 mls @ 200 mls/ hr IVPB Q6H [facility] PRN Reason: Protocol Last Admin: 10/24/17 05:26 Dose: 200 mls/hr Lorazepam (Ativan) 1 mg PO Q6 PRN PRN Reason: Anxiety Ondansetron HCl (Zofran Inj) 4 mg IVP Q4 PRN PRN Reason: Nausea/Vomiting Pantoprazole Sodium (Protonix Inj) 40 mg IVP DAILY [facility] Last Admin: 10/23/17 14:53 Dose: 40 mg Sertraline HCl (Zoloft) 50 mg PO DAILY [facility] Last Admin: 10/23/17 10:21 Dose: 50 mg Trazodone HCl (Desyrel) 50 mg PO HS [facility] Last Admin: 10/23/17 22:51 Dose: 50 mg - Labs Labs: 10/24/17 06:52 10/23/17 07:06 PT 9.6 SECONDS (9.7-12.2) L 10/18/17 13:48 INR 0.9 10/18/17 13:48 APTT 27 SECONDS (21-34) 10/18/17 13:48 - Additional Findings Additional findings: - Head Exam Head Exam: ATRAUMATIC, NORMOCEPHALIC - Eye Exam Eye Exam: EOMI - ENT Exam Additional comments: poor dentition - Respiratory Exam Respiratory Exam: Clear to Ausculation Bilateral, NORMAL BREATHING PATTERN - Cardiovascular Exam Cardiovascular Exam: REGULAR RHYTHM, +S1, +S2 - GI/Abdominal Exam GI & Abdominal Exam: Soft, Tenderness (mild). Incision c/d/i with vivek, YEN drains in place absent: Distended, Firm, Guarding, Rigid - Neurological Exam Neurological Exam: Alert, Awake, Oriented x3 - Psychiatric Exam Psychiatric exam: Normal Affect, Normal Mood - Skin Skin Exam: Dry, Warm Assessment and Plan - Assessment and Plan (Free Text) Assessment: Severe Abdominal Pain, Perforated viscus- clinically improved -Stable, afebrile -Surgical Consult to Dr. Hope- danielle appreciated -s/p Ex lap with partial gastrectomy, zoraida en y gastrojejunostomy POD#6 -GI series- no obstruction -Pain control: Percocet 1 tab Q4H prn moderate pain, Percocet 2 tabs Q4H prn severe pain -Zosyn 3.375 Q6H started on 10/21 -Continue Fluconazole 100mg daily started on 10/20 -ID on consult, help appreciated -Blood cultures negative, Peritoneal fluid cx: yeast species -Encourage ambulation and ISS use -Monitor bowel function -PT eval ordered Hypertension -Currently normatensive -Continue to monitor Anemia -S/P PRBCs -Hgb today 8.1, asymptomatic -Will continue to monitor History of Depression -Continue Zoloft 50mg PO dialy -Continue Trazadone 50mg PO HS -Psych on consult, help appreciated History of Substance abuse -Cessation advised GI/DVT ppx: -Protonix 40mg IVP daily -Lovenox 40mg SC daily This patient is being prepped for D/C with 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 She has a hx of iv drug abuse and great precaution needs to be taken. She has refused transfer to a care facility. Follow up ID recs for need for abx and plan accordingly. Case discussed with Dr Marcos All medical management as per Dr. Priti Hung DO PGY-1
[2017-10-24 07:14] LABS: ALB/GLOB RATIO 0.9 (1.0-2.1); ALBUMIN 2.5 g/dL (3.5-5.0); ALT/SGPT 36 U/L (9-52); AST/SGOT 25 U/L (14-36); BLOOD UREA NITROGEN 5 mg/dL (7-17); CALCIUM 8.4 mg/dl (8.6-10.4); GFR AFRICAN-AMERICAN > 60; GFR NON-AFRICAN AMERICAN > 60
[2017-10-24 08:41] LABS: ANISOCYTOSIS SLIGHT; BANDS 2 % (0-2); EOSINOPHIL 4 % (0-4); HYPOCHROMIC SLIGHT; LYMPHOCYTE 9 % (20-40); MONOCYTE 4 % (0-10); NEUTROPHIL 81 % (50-75); PLATELET ESTIMATE INCREASED (NORMAL); POLYCHROMIC SLIGHT; TOTAL CELLS COUNTED 100
[2017-10-24] MEDS: Bacitracin Ointment 30 GM TUBE TOP SCH ×2 (10:04→17:56)
[2017-10-24] MEDS: Oxycodone/Acetaminophen 5/325 mg Tab PO PRN ×3 (10:18→22:02)
--- NOTE | 2017-10-24 13:09 | CP.PCM.PN ---
Subjective - Date & Time of Evaluation Date of Evaluation: 10/24/17 Time of Evaluation: 07:00 - Subjective Subjective: Patient seen and examined. No acute events over night. Tolerating pureed diet. Ambulating. Passing flatus and having BMs. L YEN drain 170 serosanguinous output , R YEN drain 50cc serosanguinous output. Objective - Vital Signs/Intake and Output Vital Signs (last 24 hours): Temp Pulse Resp BP Pulse Ox 98.6 F 70 20 114/71 98 10/24/17 07:00 10/24/17 07:00 10/24/17 07:00 10/24/17 07:00 10/24/17 07:00 Intake and Output: 10/24/17 10/24/17 06:59 18:59 Intake Total 1320 Output Total 171 Balance 1149 - Medications Medications: Current Medications Acetaminophen (Tylenol 650 Mg Supp) 650 mg [place] Q4 PRN PRN Reason: Fever >100.4 F Bacitracin (Bacitracin) 1 gm TOP BID [facility] Last Admin: 10/24/17 10:04 Dose: 1 oin Enoxaparin Sodium (Lovenox) 40 mg SC DAILY [facility] Last Admin: 10/23/17 10:21 Dose: 40 mg BUPIVACAINE 0.125%/0.9% NACL (Bupivacaine-Ns 0.125% On-Q Punch Press Operator Helper) 600 mls @ 4 mls/ hr IJ ONCE ONE Stop: 10/24/17 23:16 Fluconazole (Diflucan Iv 200 Mg/100 Ml Ns) 100 mls @ 100 mls/hr IVPB DAILY [facility] PRN Reason: Protocol Last Admin: 10/23/17 10:21 Dose: 100 mls/hr BUPIVACAINE 0.125%/0.9% NACL (Bupivacaine-Ns 0.125% On-Q Punch Press Operator Helper) 600 mls @ 4 mls/ hr IJ ONCE ONE Stop: 10/27/17 21:24 Last Admin: 10/21/17 18:11 Dose: Not Given Piperacillin Sod/Tazobactam (Sod 3.375 gm/ Sodium Chloride) 100 mls @ 200 mls/ hr IVPB Q6H [facility] PRN Reason: Protocol Last Admin: 10/24/17 12:07 Dose: 200 mls/hr Lorazepam (Ativan) 1 mg PO Q6 PRN PRN Reason: Anxiety Ondansetron HCl (Zofran Inj) 4 mg IVP Q4 PRN PRN Reason: Nausea/Vomiting Oxycodone/Acetaminophen (Percocet 5/325 Mg Tab) 1 tab PO Q4H PRN PRN Reason: Pain, moderate (4-7) Stop: 10/27/17 10:05 Last Admin: 10/24/17 10:18 Dose: 1 tab Oxycodone/Acetaminophen (Percocet 5/325 Mg Tab) 2 tab PO Q4H PRN PRN Reason: Pain, severe (8-10) Stop: 10/27/17 10:06 Pantoprazole Sodium (Protonix Inj) 40 mg IVP DAILY [facility] Last Admin: 10/24/17 09:55 Dose: 40 mg Sertraline HCl (Zoloft) 50 mg PO DAILY [facility] Last Admin: 10/24/17 09:54 Dose: 50 mg Trazodone HCl (Desyrel) 50 mg PO HS [facility] Last Admin: 10/23/17 22:51 Dose: 50 mg - Labs Labs: 10/24/17 06:52 10/24/17 06:52 PT 9.6 SECONDS (9.7-12.2) L 10/18/17 13:48 INR 0.9 10/18/17 13:48 APTT 27 SECONDS (21-34) 10/18/17 13:48 - Constitutional Appears: No Acute Distress - Eye Exam Pupil Exam: NORMAL ACCOMODATION - Cardiovascular Exam Cardiovascular Exam: +S1, +S2 - GI/Abdominal Exam GI & Abdominal Exam: Soft. absent: Tenderness - Neurological Exam Neurological Exam: Alert, Awake, Oriented x3 - Skin Skin Exam: Dry, Intact, Warm Assessment and Plan - Assessment and Plan (Free Text) Assessment: 37F POD6 s/p ex lap Eulalio en Y Plan: Pureed diet D/C ONQ Encourage incentive spirometer use and ambulation D/C planning on Friday YEN drains will remain until follow up visit in office D/w Dr. Chula Cesar PGY3
[2017-10-24] MEDS: Fluconazole IV 200mg/100 ml NS 100 ML IVPB SCH ×2 (13:41→14:40)
[2017-10-24] MEDS: Enoxaparin 40 mg Syringe SC SCH (14:08)
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
[2017-10-25] MEDS: Oxycodone/Acetaminophen 5/325 mg Tab PO PRN ×3 (01:55→22:15)
[2017-10-25] MEDS: Piperacillin/Tazobact 3.375 GM in Sodium Chloride 100 ML IVPB SCH ×3 (05:29→21:19)
[2017-10-25 07:51] LABS: BASO % 0.6 % (0.0-2.0); EOS # 0.3 K/uL (0.0-0.7); EOS % 3.5 % (0.0-4.0); HEMOGLOBIN 8.3 g/dL (11.0-16.0); LYMPH # 1.2 K/uL (1.0-4.3); LYMPH % 13.8 % (20.0-40.0); MEAN CELL VOLUME 79.8 fL (81.0-99.0); MEAN CORPUSCULAR HEMOGLOBIN 27.2 pg (27.0-31.0); MEAN CORPUSCULAR HGB CONC 34.1 g/dL (33.0-37.0); MEAN PLATELET VOLUME 7.9 fL (7.2-11.7); MONO # 1.1 K/uL (0.0-0.8); MONO % 13.2 % (0.0-10.0); NEUT # 5.9 K/uL (1.8-7.0); NEUT % 68.9 % (50.0-75.0); RBC 3.06 Mil/uL (3.80-5.20); RED CELL DISTRIBUTION WIDTH 16.7 % (11.5-14.5); WHITE BLOOD COUNT 8.6 K/uL (4.8-10.8)
[2017-10-25 08:09] LABS: ALBUMIN 2.6 g/dL (3.5-5.0); ALT/SGPT 35 U/L (9-52); AST/SGOT 26 U/L (14-36); BLOOD UREA NITROGEN 5 mg/dL (7-17); CALCIUM 8.3 mg/dl (8.6-10.4); GFR AFRICAN-AMERICAN > 60; GFR NON-AFRICAN AMERICAN > 60
[2017-10-25 08:38] LABS: HEPATITIS B SURFACE AG Negative (NEGATIVE)
[2017-10-25 08:44] LABS: HEPATITIS A IGM NEGATIVE (NEGATIVE); HEPATITIS B CORE AB NEGATIVE (NEGATIVE)
--- NOTE | 2017-10-25 08:55 | CP.PCM.PN ---
Subjective - Date & Time of Evaluation Date of Evaluation: 10/25/17 Time of Evaluation: 08:53 - Subjective Subjective: General Surgery Progress Note for Dr. Quiros This 37F was seen and examined this AM at bedside no acute events to report overnight. She is tolerating diet, denies nausea vomiting, abdominal pain. She denies fevers chills chest pain or SOB. Yesterday her OnQ got pulled out and was leaking so it was removed. However pain remains adequately controlled. No new complaints at this time. Tahir drains with serous output 210cc from the left drain and 70cc from the right drain. Objective - Vital Signs/Intake and Output Vital Signs (last 24 hours): Temp Pulse Resp BP Pulse Ox 98.8 F 90 20 120/76 96 10/25/17 07:13 10/25/17 07:13 10/25/17 07:13 10/25/17 07:13 10/25/17 07:13 Intake and Output: 10/25/17 10/25/17 06:59 18:59 Intake Total 250 Output Total 140 Balance 110 - Medications Medications: Current Medications Acetaminophen (Tylenol 650 Mg Supp) 650 mg [place] Q4 PRN PRN Reason: Fever >100.4 F Bacitracin (Bacitracin) 1 gm TOP BID [facility] Last Admin: 10/24/17 17:56 Dose: 1 applic Enoxaparin Sodium (Lovenox) 40 mg SC DAILY [facility] Last Admin: 10/24/17 14:08 Dose: 40 mg Fluconazole (Diflucan Iv 200 Mg/100 Ml Ns) 100 mls @ 100 mls/hr IVPB DAILY [facility] PRN Reason: Protocol Last Admin: 10/24/17 13:41 Dose: Not Given Piperacillin Sod/Tazobactam (Sod 3.375 gm/ Sodium Chloride) 100 mls @ 200 mls/ hr IVPB Q6H [facility] PRN Reason: Protocol Last Admin: 10/25/17 05:29 Dose: 200 mls/hr Fluconazole (Diflucan Iv 200 Mg/100 Ml Ns) 100 mls @ 100 mls/hr IVPB Q24H [facility] PRN Reason: Protocol Last Admin: 10/24/17 14:40 Dose: 100 mls/hr Lorazepam (Ativan) 1 mg PO Q6 PRN PRN Reason: Anxiety Ondansetron HCl (Zofran Inj) 4 mg IVP Q4 PRN PRN Reason: Nausea/Vomiting Oxycodone/Acetaminophen (Percocet 5/325 Mg Tab) 1 tab PO Q4H PRN PRN Reason: Pain, moderate (4-7) Stop: 10/27/17 10:05 Last Admin: 10/24/17 10:18 Dose: 1 tab Oxycodone/Acetaminophen (Percocet 5/325 Mg Tab) 2 tab PO Q4H PRN PRN Reason: Pain, severe (8-10) Stop: 10/27/17 10:06 Last Admin: 10/25/17 01:55 Dose: 2 tab Pantoprazole Sodium (Protonix Inj) 40 mg IVP DAILY [facility] Last Admin: 10/24/17 09:55 Dose: 40 mg Sertraline HCl (Zoloft) 50 mg PO DAILY [facility] Last Admin: 10/24/17 09:54 Dose: 50 mg Trazodone HCl (Desyrel) 50 mg PO HS [facility] Last Admin: 10/24/17 22:02 Dose: 50 mg - Labs Labs: 10/25/17 07:38 10/25/17 07:38 PT 9.6 SECONDS (9.7-12.2) L 10/18/17 13:48 INR 0.9 10/18/17 13:48 APTT 27 SECONDS (21-34) 10/18/17 13:48 Assessment and Plan - Assessment and Plan (Free Text) Assessment: 37F POD7 s/p ex lap Eulalio en Y Plan: Pureed diet Encourage incentive spirometer use and ambulation D/C planning on Friday YEN drains will remain until follow up visit in office D/W Dr. Chula Mata PGY3
[2017-10-25 08:56] LABS: HEPATITIS C ANTIBODY NEGATIVE (NEGATIVE)
[2017-10-25] MEDS: Fluconazole IV 200mg/100 ml NS 100 ML IVPB SCH ×2 (10:40→13:27)
[2017-10-25] MEDS: Enoxaparin 40 mg Syringe SC SCH (10:40)
[2017-10-25] MEDS: Bacitracin Ointment 30 GM TUBE TOP SCH ×2 (13:26→21:20)
[2017-10-26] MEDS: Piperacillin/Tazobact 3.375 GM in Sodium Chloride 100 ML IVPB SCH ×4 (00:17→17:13)
[2017-10-26 01:57] VITALS: RESP 20
--- NOTE | 2017-10-26 07:25 | CP.PCM.PN ---
Subjective - Date & Time of Evaluation Date of Evaluation: 10/26/17 Time of Evaluation: 07:22 - Subjective Subjective: General Surgery Progress Note for Dr. Quiros This 37F was seen and examined this AM at bedside no acute events to report overnight. She is tolerating diet, denies nausea vomiting, abdominal pain. She denies fevers chills chest pain or SOB. However pain remains adequately controlled. No new complaints at this time. Tahir drains with serous output 50cc from the left drain and 60cc from the right drain. Objective - Vital Signs/Intake and Output Vital Signs (last 24 hours): Temp Pulse Resp BP Pulse Ox 98.8 F 77 20 114/76 97 10/26/17 05:35 10/26/17 00:00 10/26/17 00:00 10/26/17 00:00 10/26/17 00:00 Intake and Output: 10/26/17 10/26/17 06:59 18:59 Output Total 50 Balance -50 - Medications Medications: Current Medications Acetaminophen (Tylenol 650 Mg Supp) 650 mg [place] Q4 PRN PRN Reason: Fever >100.4 F Bacitracin (Bacitracin) 1 gm TOP BID [facility] Last Admin: 10/25/17 21:20 Dose: 1 applic Enoxaparin Sodium (Lovenox) 40 mg SC DAILY [facility] Last Admin: 10/25/17 10:40 Dose: 40 mg Piperacillin Sod/Tazobactam (Sod 3.375 gm/ Sodium Chloride) 100 mls @ 200 mls/ hr IVPB Q6H [facility] PRN Reason: Protocol Last Admin: 10/26/17 05:40 Dose: 200 mls/hr Fluconazole (Diflucan Iv 200 Mg/100 Ml Ns) 100 mls @ 100 mls/hr IVPB Q24H [facility] PRN Reason: Protocol Last Admin: 10/25/17 13:27 Dose: Not Given Lorazepam (Ativan) 1 mg PO Q6 PRN PRN Reason: Anxiety Ondansetron HCl (Zofran Inj) 4 mg IVP Q4 PRN PRN Reason: Nausea/Vomiting Oxycodone/Acetaminophen (Percocet 5/325 Mg Tab) 1 tab PO Q4H PRN PRN Reason: Pain, moderate (4-7) Stop: 10/27/17 10:05 Last Admin: 10/24/17 10:18 Dose: 1 tab Oxycodone/Acetaminophen (Percocet 5/325 Mg Tab) 2 tab PO Q4H PRN PRN Reason: Pain, severe (8-10) Stop: 10/27/17 10:06 Last Admin: 10/25/17 22:15 Dose: 2 tab Pantoprazole Sodium (Protonix Inj) 40 mg IVP DAILY [facility] Last Admin: 10/25/17 10:40 Dose: 40 mg Sertraline HCl (Zoloft) 50 mg PO DAILY [facility] Last Admin: 10/25/17 10:40 Dose: 50 mg Trazodone HCl (Desyrel) 50 mg PO HS [facility] Last Admin: 10/25/17 22:15 Dose: 50 mg - Labs Labs: 10/25/17 07:38 10/25/17 07:38 PT 9.6 SECONDS (9.7-12.2) L 10/18/17 13:48 INR 0.9 10/18/17 13:48 APTT 27 SECONDS (21-34) 10/18/17 13:48 - Constitutional Appears: Non-toxic, No Acute Distress - Head Exam Head Exam: ATRAUMATIC, NORMAL INSPECTION, NORMOCEPHALIC - Eye Exam Eye Exam: EOMI - ENT Exam ENT Exam: Mucous Membranes Moist - Respiratory Exam Respiratory Exam: NORMAL BREATHING PATTERN - Cardiovascular Exam Cardiovascular Exam: +S1, +S2 - GI/Abdominal Exam GI & Abdominal Exam: Soft. absent: Distended, Firm, Guarding, Rigid, Tenderness - Neurological Exam Neurological Exam: Alert, Awake - Psychiatric Exam Psychiatric exam: Normal Affect, Normal Mood - Skin Skin Exam: Dry, Intact Assessment and Plan - Assessment and Plan (Free Text) Assessment: 37F POD8 s/p ex lap Eulalio en Y Plan: Pureed diet Encourage incentive spirometer use and ambulation D/C planning on Friday YEN drains will remain until follow up visit in office D/W Dr. Chula Mata PGY3
[2017-10-26] MEDS: Oxycodone/Acetaminophen 5/325 mg Tab PO PRN ×3 (10:37→21:22)
[2017-10-26] MEDS: Pantoprazole 40 mg EC Tab PO SCH (10:38)
[2017-10-26] MEDS: Enoxaparin 40 mg Syringe SC SCH (10:38)
[2017-10-26] MEDS: Bacitracin Ointment 30 GM TUBE TOP SCH ×2 (10:40→17:14)
--- NOTE | 2017-10-26 14:03 | CP.PCM.PN ---
Subjective - Date & Time of Evaluation Date of Evaluation: 10/26/17 Time of Evaluation: 08:00 - Subjective Subjective: PATIENT IS S/P EXPL LAP AND REPAIR OF PERF VISCUS - NAHEED EN Y, OMENTAL PATCH, GASTRIC RESECTION DENIES FEVER Objective - Vital Signs/Intake and Output Vital Signs (last 24 hours): Temp Pulse Resp BP Pulse Ox 99.3 F 77 20 103/59 L 97 10/26/17 07:00 10/26/17 07:00 10/26/17 07:00 10/26/17 07:00 10/26/17 07:00 Intake and Output: 10/26/17 10/26/17 06:59 18:59 Output Total 50 Balance -50 - Medications Medications: Current Medications Acetaminophen (Tylenol 650 Mg Supp) 650 mg [place] Q4 PRN PRN Reason: Fever >100.4 F Bacitracin (Bacitracin) 1 gm TOP BID [facility] Last Admin: 10/26/17 10:40 Dose: 1 applic Piperacillin Sod/Tazobactam (Sod 3.375 gm/ Sodium Chloride) 100 mls @ 200 mls/ hr IVPB Q6H [facility] PRN Reason: Protocol Last Admin: 10/26/17 12:08 Dose: 200 mls/hr Fluconazole (Diflucan Iv 200 Mg/100 Ml Ns) 100 mls @ 100 mls/hr IVPB Q24H [facility] PRN Reason: Protocol Last Admin: 10/25/17 13:27 Dose: Not Given Lorazepam (Ativan) 1 mg PO Q6 PRN PRN Reason: Anxiety Ondansetron HCl (Zofran Inj) 4 mg IVP Q4 PRN PRN Reason: Nausea/Vomiting Oxycodone/Acetaminophen (Percocet 5/325 Mg Tab) 1 tab PO Q4H PRN PRN Reason: Pain, moderate (4-7) Stop: 10/27/17 10:05 Last Admin: 10/26/17 10:37 Dose: 1 tab Oxycodone/Acetaminophen (Percocet 5/325 Mg Tab) 2 tab PO Q4H PRN PRN Reason: Pain, severe (8-10) Stop: 10/27/17 10:06 Last Admin: 10/25/17 22:15 Dose: 2 tab Pantoprazole Sodium (Protonix Ec Tab) 40 mg PO DAILY [facility] Last Admin: 10/26/17 10:38 Dose: 40 mg Sertraline HCl (Zoloft) 50 mg PO DAILY [facility] Last Admin: 10/26/17 10:38 Dose: 50 mg Trazodone HCl (Desyrel) 50 mg PO HS [facility] Last Admin: 10/25/17 22:15 Dose: 50 mg - Labs Labs: 10/25/17 07:38 10/25/17 07:38 PT 9.6 SECONDS (9.7-12.2) L 10/18/17 13:48 INR 0.9 10/18/17 13:48 APTT 27 SECONDS (21-34) 10/18/17 13:48 - Constitutional Appears: Non-toxic, Chronically Ill - Head Exam Head Exam: NORMOCEPHALIC - Eye Exam Eye Exam: PERRL - ENT Exam ENT Exam: Mucous Membranes Dry - Neck Exam Neck Exam: absent: Lymphadenopathy - Respiratory Exam Respiratory Exam: Decreased Breath Sounds - Cardiovascular Exam Cardiovascular Exam: REGULAR RHYTHM - GI/Abdominal Exam GI & Abdominal Exam: Distended, Soft, Tenderness - Rectal Exam Rectal Exam: Deferred - Exam Exam: NORMAL INSPECTION - Extremities Exam Extremities Exam: absent: Pedal Edema - Back Exam Back Exam: absent: CVA tenderness (L), CVA tenderness (R) - Neurological Exam Neurological Exam: Alert, Awake, Oriented x3 - Psychiatric Exam Psychiatric exam: Depressed - Skin Skin Exam: Dry Assessment and Plan (1) Anemia Status: Acute (2) Drug abuse Status: Acute (3) Perforated abdominal viscus Status: Acute - Assessment and Plan (Free Text) Assessment: PATIENT IS S/P EXPL LAP AND REPAIR OF PERF VISCUS - NAHEED EN Y, OMENTAL PATCH, GASTRIC RESECTION DENIES FEVER
[2017-10-26] MEDS: Fluconazole IV 200mg/100 ml NS 100 ML IVPB SCH (14:22)
[2017-10-27] MEDS: Piperacillin/Tazobact 3.375 GM in Sodium Chloride 100 ML IVPB SCH ×3 (00:20→11:34)
[2017-10-27 06:54] LABS: BASO # 0.1 K/uL (0.0-0.2); BASO % 0.9 % (0.0-2.0); EOS # 0.2 K/uL (0.0-0.7); EOS % 2.8 % (0.0-4.0); LYMPH # 1.1 K/uL (1.0-4.3); LYMPH % 14.8 % (20.0-40.0); MEAN CORPUSCULAR HEMOGLOBIN 26.9 pg (27.0-31.0); MEAN CORPUSCULAR HGB CONC 33.7 g/dL (33.0-37.0); MEAN PLATELET VOLUME 7.9 fL (7.2-11.7); MONO # 0.9 K/uL (0.0-0.8); MONO % 11.9 % (0.0-10.0); NEUT # 5.3 K/uL (1.8-7.0); NEUT % 69.6 % (50.0-75.0); RBC 2.95 Mil/uL (3.80-5.20); RED CELL DISTRIBUTION WIDTH 16.2 % (11.5-14.5); WHITE BLOOD COUNT 7.6 K/uL (4.8-10.8)
[2017-10-27 08:10] VITALS: BP 117/74; PULSE 67; TEMP 98.7; O2SAT 99
[2017-10-27 08:17] LABS: ALB/GLOB RATIO 0.9 (1.0-2.1); ALBUMIN 2.6 g/dL (3.5-5.0); ALT/SGPT 32 U/L (9-52); AST/SGOT 37 U/L (14-36); BLOOD UREA NITROGEN 6 mg/dL (7-17); CALCIUM 8.4 mg/dl (8.6-10.4); GFR AFRICAN-AMERICAN > 60; GFR NON-AFRICAN AMERICAN > 60
[2017-10-27] MEDS: Pantoprazole 40 mg EC Tab PO SCH (11:17)
[2017-10-27] MEDS: Bacitracin Ointment 30 GM TUBE TOP SCH (11:24)
--- NOTE | 2017-10-27 12:52 | CP.PCM.PN ---
Subjective - Date & Time of Evaluation Date of Evaluation: 10/27/17 Time of Evaluation: 10:00 - Subjective Subjective: iv rx renewed Objective - Vital Signs/Intake and Output Vital Signs (last 24 hours): Temp Pulse Resp BP Pulse Ox 98.7 F 67 20 117/74 99 10/27/17 07:00 10/27/17 07:00 10/27/17 07:00 10/27/17 07:00 10/27/17 07:00 Intake and Output: 10/27/17 10/27/17 06:59 18:59 Intake Total 400 Output Total 900 Balance -500 - Medications Medications: Current Medications Acetaminophen (Tylenol 650 Mg Supp) 650 mg [place] Q4 PRN PRN Reason: Fever >100.4 F Bacitracin (Bacitracin) 1 gm TOP BID [facility] Last Admin: 10/27/17 11:24 Dose: 1 applic Piperacillin Sod/Tazobactam (Sod 3.375 gm/ Sodium Chloride) 100 mls @ 200 mls/ hr IVPB Q6H [facility] PRN Reason: Protocol Last Admin: 10/27/17 11:34 Dose: 200 mls/hr Fluconazole (Diflucan Iv 200 Mg/100 Ml Ns) 100 mls @ 100 mls/hr IVPB Q24H [facility] PRN Reason: Protocol Last Admin: 10/26/17 14:22 Dose: 100 mls/hr Lorazepam (Ativan) 1 mg PO Q6 PRN PRN Reason: Anxiety Ondansetron HCl (Zofran Inj) 4 mg IVP Q4 PRN PRN Reason: Nausea/Vomiting Pantoprazole Sodium (Protonix Ec Tab) 40 mg PO DAILY [facility] Last Admin: 10/27/17 11:17 Dose: 40 mg Sertraline HCl (Zoloft) 50 mg PO DAILY [facility] Last Admin: 10/27/17 11:17 Dose: 50 mg Trazodone HCl (Desyrel) 50 mg PO HS [facility] Last Admin: 10/26/17 21:17 Dose: 50 mg - Labs Labs: 10/27/17 06:39 10/27/17 06:39 PT 9.6 SECONDS (9.7-12.2) L 10/18/17 13:48 INR 0.9 10/18/17 13:48 APTT 27 SECONDS (21-34) 10/18/17 13:48 - Constitutional Appears: Non-toxic, Chronically Ill - Head Exam Head Exam: NORMOCEPHALIC - Eye Exam Eye Exam: absent: Scleral icterus - ENT Exam ENT Exam: Mucous Membranes Dry - Neck Exam Neck Exam: absent: Lymphadenopathy - Respiratory Exam Respiratory Exam: Decreased Breath Sounds - Cardiovascular Exam Cardiovascular Exam: REGULAR RHYTHM - GI/Abdominal Exam GI & Abdominal Exam: Distended Assessment and Plan (1) Anemia Status: Acute (2) Drug abuse Status: Acute (3) Perforated abdominal viscus Status: Acute
[2017-10-27] MEDS: Fluconazole IV 200mg/100 ml NS 100 ML IVPB SCH (14:31)
--- NOTE | 2017-10-27 15:03 | CP.PCM.PN ---
Subjective - Date & Time of Evaluation Date of Evaluation: 10/27/17 Time of Evaluation: 07:00 - Subjective Subjective: General Surgery Progress Note for Dr. Quiros 37F seen and evaluated this AM. Patient is resting comfortably in bed with no complaints of pain. No acute events overnight. Pt is ambulating and tolerating diet. Left drain was removed today. Denies n/v/d, f/c, SOB, CP, or urinary symptoms. Objective - Vital Signs/Intake and Output Vital Signs (last 24 hours): Temp Pulse Resp BP Pulse Ox 98.7 F 67 20 117/74 99 10/27/17 07:00 10/27/17 07:00 10/27/17 07:00 10/27/17 07:00 10/27/17 07:00 Intake and Output: 10/27/17 10/27/17 06:59 18:59 Intake Total 400 Output Total 900 Balance -500 - Medications Medications: Current Medications Acetaminophen (Tylenol 650 Mg Supp) 650 mg [place] Q4 PRN PRN Reason: Fever >100.4 F Bacitracin (Bacitracin) 1 gm TOP BID [facility] Last Admin: 10/27/17 11:24 Dose: 1 applic Piperacillin Sod/Tazobactam (Sod 3.375 gm/ Sodium Chloride) 100 mls @ 200 mls/ hr IVPB Q6H [facility] PRN Reason: Protocol Last Admin: 10/27/17 11:34 Dose: 200 mls/hr Fluconazole (Diflucan Iv 200 Mg/100 Ml Ns) 100 mls @ 100 mls/hr IVPB Q24H [facility] PRN Reason: Protocol Last Admin: 10/27/17 14:31 Dose: Not Given Lorazepam (Ativan) 1 mg PO Q6 PRN PRN Reason: Anxiety Ondansetron HCl (Zofran Inj) 4 mg IVP Q4 PRN PRN Reason: Nausea/Vomiting Pantoprazole Sodium (Protonix Ec Tab) 40 mg PO DAILY [facility] Last Admin: 10/27/17 11:17 Dose: 40 mg Sertraline HCl (Zoloft) 50 mg PO DAILY [facility] Last Admin: 10/27/17 11:17 Dose: 50 mg Trazodone HCl (Desyrel) 50 mg PO HS [facility] Last Admin: 10/26/17 21:17 Dose: 50 mg - Labs Labs: 10/27/17 06:39 07/09/18 06:39 PT 9.6 SECONDS (9.7-12.2) L 10/18/17 13:48 INR 0.9 10/18/17 13:48 APTT 27 SECONDS (21-34) 10/18/17 13:48 - Constitutional Appears: Well, Non-toxic, No Acute Distress - Head Exam Head Exam: ATRAUMATIC, NORMAL INSPECTION, NORMOCEPHALIC - Eye Exam Eye Exam: EOMI, Normal appearance - ENT Exam ENT Exam: Mucous Membranes Moist, Normal Exam - Respiratory Exam Respiratory Exam: Clear to Ausculation Bilateral, NORMAL BREATHING PATTERN - Cardiovascular Exam Cardiovascular Exam: REGULAR RHYTHM, +S1, +S2. absent: Murmur - GI/Abdominal Exam GI & Abdominal Exam: Soft, Normal Bowel Sounds. absent: Tenderness Additional comments: vivek intact with no drainage or erythema around incision site - Neurological Exam Neurological Exam: Alert, Awake - Psychiatric Exam Psychiatric exam: Normal Affect, Normal Mood - Skin Skin Exam: Dry, Intact, Normal Color, Warm Assessment and Plan - Assessment and Plan (Free Text) Assessment: 37F POD9 s/p ex lap Eulalio en Y Plan: removed left YEN drain today. Right YEN drain will be removed in office encouraged ambulation Pt is cleared for discharge from a surgical standpoint please reconsult as needed Chito Romo PGY1
--- NOTE | 2017-10-27 16:38 | CP.PCM.PN ---
Subjective - Date & Time of Evaluation Date of Evaluation: 10/27/17 Time of Evaluation: 09:30 - Subjective Subjective: PGY2 Medicine Note for Dr. Marcos Patient seen and examined this morning at bedside. No acute events overnight. Patient is resting comfortably in bed watching TV. She is complaining of discomfort on the left side of her abdomen due to the drain. She is requesting that the surgery team removes the drain on the left side before she is discharged. She reports feeling well with pain has being well controlled. She has no new complaints at this time. Denies fevers, chills, nausea, vomiting, diarrhea, constipation, chest pain, shortness of breath, palpitations, abdominal pain, headaches, numbness or tingling. Objective - Vital Signs/Intake and Output Vital Signs (last 24 hours): Temp Pulse Resp BP Pulse Ox 98.7 F 67 20 117/74 99 10/27/17 07:00 10/27/17 07:00 10/27/17 07:00 10/27/17 07:00 10/27/17 07:00 Intake and Output: 10/27/17 10/27/17 06:59 18:59 Intake Total 400 Output Total 900 20 Balance -500 -20 - Labs Labs: 10/27/17 06:39 10/27/17 06:39 PT 9.6 SECONDS (9.7-12.2) L 10/18/17 13:48 INR 0.9 10/18/17 13:48 APTT 27 SECONDS (21-34) 10/18/17 13:48 - Constitutional Appears: No Acute Distress, Older Than Stated Age - Head Exam Head Exam: ATRAUMATIC - Eye Exam Eye Exam: Normal appearance - ENT Exam ENT Exam: Mucous Membranes Moist - Respiratory Exam Respiratory Exam: Clear to Ausculation Bilateral, NORMAL BREATHING PATTERN. absent: Rales, Rhonchi, Wheezes, Respiratory Distress - Cardiovascular Exam Cardiovascular Exam: REGULAR RHYTHM, +S1, +S2 - GI/Abdominal Exam GI & Abdominal Exam: Soft. absent: Distended, Firm, Guarding, Rigid Additional comments: YEN drains located on left and right side. vivek intact with no drainage or erythema around incision site - Extremities Exam Extremities Exam: absent: Calf Tenderness, Pedal Edema - Neurological Exam Neurological Exam: Alert, Awake, Oriented x3 - Psychiatric Exam Psychiatric exam: Normal Affect, Normal Mood - Skin Skin Exam: Dry, Warm Assessment and Plan - Assessment and Plan (Free Text) Plan: Severe Abdominal Pain, Perforated viscus- clinically improved -Stable, afebrile -Surgical Consult to Dr. Hope- recs appreciated -s/p Ex lap with partial gastrectomy, zoraida en y gastrojejunostomy POD#9 -GI series- no obstruction -Pain control: Percocet 1 tab Q4H prn moderate pain, Percocet 2 tabs Q4H prn severe pain -Zosyn 3.375 Q6H started on 10/18 - completed -Continue Fluconazole 100mg daily started on 10/20 - completed -ID on consult, help appreciated -Blood cultures negative, Peritoneal fluid cx: yeast species -Pathology from [place] on 10/18 - tested positive for H. Pylori on immunohistochemical stain. -Encourage ambulation and ISS use -Monitor bowel function -PT eval ordered Hypertension -Currently normatensive -Continue to monitor Anemia -S/P PRBCs -Hgb today 8.0, asymptomatic -Will continue to monitor History of Depression -Continue Zoloft 50mg PO dialy -Continue Trazadone 50mg PO HS -Psych on consult, help appreciated History of Substance abuse -Cessation advised GI/DVT ppx: -Protonix 40mg IVP daily -Lovenox 40mg SC daily DISPO: Patient is to be discharged home today as patient has refused rehab placement multiple times. She was discharged with the following instructions. Discharge instructions Patient is to be discharged home per Dr. Marcos. Patient is to follow up with her primary care physician within one week of discharge. If patient does not have a primary care physician, she can follow up with [facility] located in the [facility]. Please call and schedule an appointment. Patient is to follow up with Dr. Quiros (Surgery) within one week. Please call an schedule an appointment. - Keep drain clean. If you notice a change in drain output, please go directly to the emergency room to be evaluated. - Keep vivek clean. They will be evaluated for removal at your appointment with Dr. Quiros. Patient instructed to avoid any drugs not prescribed by physicians. Patient states she understands. If patient experiences any new or concerning symptoms, please go directly to the nearest emergency facility. New prescriptions given: - Amoxicllin 1,000mg PO BID daily - disp 28 - Clarithromycin 500mg PO BID daily - disp 28 - Omeprazole 20mg PO BID daily - disp 28 - Sertraline (Zoloft) 50mg PO daily - disp 30 - Bacitracin Ointment - Take Tylenol for pain control Case discussed with Dr Marcos All medical management as per Dr. Priti Asher Travis PGY2
== END 2017-10-27 15:05 | disposition home or self-care (01) | DRG 585 ==
LOC: C.ER 07:41 → C.9E 11:40 → C.9I 13:34 → C.6T 10-20 22:57
PROVIDERS: ADMIT Internal Medicine Pulmonary Disease; ATTEND Internal Medicine Pulmonary Disease
PROC: 0DU907Z Supplement Duodenum with Autologous Tissue Substitute, Open Approach (ICD-10-PCS; principal; 2017-10-19)
PROC: 0W9J0ZZ Drainage of Pelvic Cavity, Open Approach (ICD-10-PCS; 2017-10-19)
PROC: 0D160ZA Bypass Stomach to Jejunum, Open Approach (ICD-10-PCS; 2017-10-19)
PROC: 0DNW0ZZ Release Peritoneum, Open Approach (ICD-10-PCS; 2017-10-19)
PROC: 0JH83VZ Insertion of Infusion Pump into Abdomen Subcutaneous Tissue and Fascia, Percutaneous Approach (ICD-10-PCS; 2017-10-19)
PROC: 0DB60ZZ Excision of Stomach, Open Approach (ICD-10-PCS; 2017-10-19)
DX: K26.5 Chronic or unspecified duodenal ulcer with perforation (principal); K65.0 Generalized (acute) peritonitis; K65.1 Peritoneal abscess; K66.0 Peritoneal adhesions (postprocedural) (postinfection); K66.8 Other specified disorders of peritoneum; F33.1 Major depressive disorder, recurrent, moderate; I10 Essential (primary) hypertension; N19 Unspecified kidney failure; D64.9 Anemia, unspecified; K59.09 Other constipation; F12.10 Cannabis abuse, uncomplicated; F17.210 Nicotine dependence, cigarettes, uncomplicated

== ENCOUNTER 2017-11-18 02:25 | Emergency (ER) | payer MEDICAID ==
--- NOTE | 2017-11-18 02:47 | C.PDOC ---
History Of Present Illness patient presents because she feels "some things " under her incision site. No f/ c/n/v. No exudates. She is feeling the subcutaneous sutures Time Seen by Provider: 11/18/17 02:47 Chief Complaint (Nursing): Abnormal Skin Integrity History Per: Patient History/Exam Limitations: no limitations Onset/Duration Of Symptoms: Days Location Of Injury: Anterior: Abdomen Quality Of Symptoms: Itching Severity: Mild Pain Scale Rating Of: 2 Recent travel outside of the [place]: No Additional History Per: Patient Past Medical History Reviewed: Historical Data, Nursing Documentation, Vital Signs Vital Signs: Last Vital Signs Temp 97.6 F 11/18/17 02:36 Pulse 98 H 11/18/17 02:36 Resp 18 11/18/17 02:36 BP 164/112 H 11/18/17 02:36 Pulse Ox 99 11/18/17 02:54 - Medical History PMH: Anxiety, Depression, HTN Denies: Diabetes, Hepatitis, HIV, Seizures, Sexually Transmitted Disease - [facility] Procedures BYPASS STOMACH TO JEJUNUM, OPEN APPROACH (10/18/17) DRAINAGE OF PELVIC CAVITY, OPEN APPROACH (10/18/17) EXCISION OF STOMACH, OPEN APPROACH (10/18/17) INSERT OF INFUSION PUMP INTO ABD SUBCU/FASCIA, PERC APPROACH (10/18/17) RELEASE PERITONEUM, OPEN APPROACH (10/18/17) SUPPLEMENT DUODENUM WITH AUTOL SUB, OPEN APPROACH (10/18/17) SUTURE OF LIP LACERATION (08/21/14) TETANUS TOXOID ADMINIST (08/21/14) Family History: States: No Known Family Hx - Social History Hx Tobacco Use: Yes Hx Alcohol Use: Yes Hx Substance Use: No - Immunization History Hx Tetanus Toxoid Vaccination: No Hx Influenza Vaccination: No Hx Pneumococcal Vaccination: No Review Of Systems Respiratory: Negative for: Cough, Shortness of Breath Gastrointestinal: Negative for: Nausea, Vomiting, Abdominal Pain Genitourinary: Negative for: Dysuria Musculoskeletal: Negative for: Back Pain Skin: Negative for: Rash Neurological: Negative for: Weakness Psych: Positive for: Anxiety Physical Exam - Physical Exam Appears: Non-toxic, No Acute Distress Skin: Warm, Dry, Other (incision clean and dry, no exudates or erythema) Cardiovascular: Rhythm Regular Gastrointestinal/Abdominal: Soft, No Tenderness, No Distention, Other (incision site c&d) Neurological/Psych: Oriented x3 Gait: Steady ED Course And Treatment O2 Sat by Pulse Oximetry: 99 Pulse Ox Interpretation: Normal Reevaluation Time: 03:08 Reassessment Condition: Improved Disposition Counseled Patient/Family Regarding: Studies Performed, Diagnosis, Need For Followup - Disposition Referrals: Nabil Quiros MD [Staff Provider] - Disposition: HOME/ ROUTINE Disposition Time: 02:47 Condition: FAIR Prescriptions: Acetaminophen [Tylenol] 975 mg PO TID PRN #30 capsule PRN Reason: Pain, Moderate (4-7) Instructions: Wound Care (DC) Forms: [employer] (Japanese) - Clinical Impression Clinical Impression: Visit for wound check
[2017-11-18 02:57] VITALS: BP 164/112; PULSE 98; RESP 18; TEMP 97.6; O2SAT 99
== END 2017-11-18 03:26 | disposition home or self-care (01) ==
LOC: C.ER 02:25
DX: Z48.01 Encounter for change or removal of surgical wound dressing (principal)

== ENCOUNTER 2017-12-17 13:57 | Inpatient (IN) | payer MEDICAID ==
[2017-12-17] MEDS ORDERED: Iohexol 240 (50 ml) PO STA (14:41)
[2017-12-17] MEDS ORDERED: Sodium Chloride 0.9% 1,000 ML IV ONE ×2 (14:41→15:34)
--- NOTE | 2017-12-17 14:48 | C.PDOC ---
History Of Present Illness 37 y/o female presents to the ED complaining of abdominal discomfort, mostly epigastric and left-sided, that began 2 days ago. Of note patient was seen here at the end of September, diagnosed with perforated viscus, and found via surgical exploration to have a perforated duodenum. She had a surgical repair on 10/18 consisting of: partial gastrectomy, Eulalio en Y, gastrojejunostomy, jejunojejunostomy, and Omental patch. Patient had presented at that time with 2 month history of symptoms, although she appeared chronically ill and cachectic. Patient does not report any other PMHx. Patient required lengthy stay in the hospital at that time, and was discharged home beginning of October. States she has been tolerating fluids PO and taking only Tylenol for pain since then. Two days ago she developed abdominal discomfort and had some vomiting yesterday. Patient otherwise has been able to drink some soup and keep some liquids down. Reports she has not had a bowel movement or passed gas in 2 days. She denies fever but states she develops sweats after taking Tylenol. Time Seen by Provider: 12/17/17 14:18 Chief Complaint (Nursing): Abdominal Pain History Per: Patient History/Exam Limitations: no limitations Onset/Duration Of Symptoms: Days Current Symptoms Are (Timing): Still Present Location Of Pain/Discomfort: Epigastric, LUQ, LLQ Associated Symptoms: Vomiting, Constipation Additional History Per: Prior Records Past Medical History Reviewed: Historical Data, Nursing Documentation, Vital Signs Vital Signs: Last Vital Signs Temp 98.5 F 12/17/17 17:50 Pulse 101 H 12/17/17 17:50 Resp 18 12/17/17 17:50 BP 119/84 12/17/17 17:50 Pulse Ox 100 12/17/17 18:05 - Medical History PMH: Anxiety, Depression, HTN Denies: Diabetes, Hepatitis, HIV, Seizures, Sexually Transmitted Disease Other Surgeries: Gastrectomy with gastrojejeunostomy - [facility] Procedures BYPASS STOMACH TO JEJUNUM, OPEN APPROACH (10/18/17) DRAINAGE OF PELVIC CAVITY, OPEN APPROACH (10/18/17) EXCISION OF STOMACH, OPEN APPROACH (10/18/17) INSERT OF INFUSION PUMP INTO ABD SUBCU/FASCIA, PERC APPROACH (10/18/17) RELEASE PERITONEUM, OPEN APPROACH (10/18/17) SUPPLEMENT DUODENUM WITH AUTOL SUB, OPEN APPROACH (10/18/17) SUTURE OF LIP LACERATION (08/21/14) TETANUS TOXOID ADMINIST (08/21/14) Family History: States: Unknown Family Hx - Social History Hx Tobacco Use: Yes Hx Alcohol Use: Yes Hx Substance Use: No - Immunization History Hx Tetanus Toxoid Vaccination: No Hx Influenza Vaccination: No Hx Pneumococcal Vaccination: No Review Of Systems Except As Marked, All Systems Reviewed And Found Negative. Constitutional: Positive for: Sweats (after Tylenol). Negative for: Fever, Chills Eyes: Negative for: Vision Change Cardiovascular: Negative for: Chest Pain Respiratory: Negative for: Cough, Shortness of Breath Gastrointestinal: Positive for: Nausea, Vomiting, Abdominal Pain, Constipation Musculoskeletal: Negative for: Back Pain Skin: Positive for: Lesions (surgical incision at abdomen). Negative for: Rash Neurological: Negative for: Weakness, Numbness, Headache, Dizziness Physical Exam - Physical Exam Appears: No Acute Distress, Chronically Ill, Other (Cachectic appearing) Skin: Normal Color, Warm, Dry Head: Atraumatic, Normacephalic Eye(s): bilateral: Normal Inspection, PERRL, EOMI Nose: Normal Oral Mucosa: Dry Neck: Normal ROM, Supple Chest: Symmetrical Cardiovascular: Rhythm Regular (but tachycardic), No Murmur Respiratory: Normal Breath Sounds, No Rales, No Rhonchi, No Wheezing Gastrointestinal/Abdominal: Bowel Sounds (are markedly diminished), Tenderness ( diffusely to even light touch), No Distention, Guarding (diffusely), Other ( Incision appears well healed at midline abdomen) Back: Normal Inspection, No Vertebral Tenderness Extremity: Bilateral: Atraumatic, Normal Color And Temperature, Normal ROM Pulses: Left Dorsalis Pedis: Normal, Right Dorsalis Pedis: Normal Neurological/Psych: Oriented x3, Normal Speech, Normal Cranial Nerves Gait: Steady ED Course And Treatment - Laboratory Results Result Diagrams: 12/17/17 15:17 12/17/17 15:17 Lab Interpretation: Abnormal (Hgb 10.7, with normal WBC, BUN 37 Urine concentrated.) O2 Sat by Pulse Oximetry: 100 (RA) Pulse Ox Interpretation: Normal - CT Scan/US CT A/P with PO & IV contrast Other Rad Studies (CT/US): Read By Radiologist, Radiology Report Reviewed CT/US Interpretation: Accession No. : [id number]. Patient Name / ID : DARIANA GOEL / [id number]. Exam Date : 12/17/2017 16:50:28 ( Approved ). Study Comment : Sex / Age : F / 37Y. Creator : Maria Del Carmen Proctor. Dictator : Akbar Young MD. Wax Room Supervisor : Manager Equity : Akbar Young MD. Approver2 : Report Date : 12/17/2017 17:07:02. My Comment : . This report is currently processing and HAS NOT BEEN OFFICIALLY SIGNED BY THE PHYSICIAN - ESTIMATED TIME OF APPROVAL IS 12/17/2017 17:32. Date of service: 12/17/2017. PROCEDURE: CT Abdomen and Pelvis with contrast. HISTORY: abd pain. COMPARISON: None. TECHNIQUE: Contrast dose: 100 ml Visipaque 320. Radiation dose: Total exam DLP = 208.1 mGy-cm. This CT exam was performed using one or more of the following dose reduction techniques: Automated exposure control, adjustment of the mA and/or kV according to patient size, and/ or use of iterative reconstruction technique. FINDINGS: LOWER THORAX: Unremarkable. LIVER: Hepatic steatosis. No gross lesion. Mild intrahepatic ductal dilatation. GALLBLADDER AND BILE DUCTS: Unremarkable bladder. Prominent CBD. PANCREAS: Unremarkable. No gross lesion or ductal dilatation. SPLEEN: Unremarkable. ADRENALS: Unremarkable. No mass. KIDNEYS AND URETERS: Unremarkable. No hydronephrosis. No solid mass. VASCULATURE: Unremarkable. No aortic aneurysm. BOWEL: Prior gastric bypass surgery. Proximal anastomosis appears intact. Distal anastomosis difficult to evaluate. Diffusely dilated loops of small bowel with apparent swirling of the mesenteric in the right lower quadrant where there appears to be twisting of a loop of bowel, possibly distal ileum. Prominent amount of abdominal pelvic ascites, likely related to the acute bowel process. APPENDIX: Difficult to evaluate. PERITONEUM: Unremarkable. No free fluid. No free air. LYMPH NODES: Unremarkable. No enlarged lymph nodes. BLADDER: Unremarkable. REPRODUCTIVE: Unremarkable. BONES: No acute fracture. OTHER FINDINGS: None. IMPRESSION: Severe small bowel obstruction with apparent swirling of the mesenteric in the right lower quadrant with there appears to be twisting of a loop of bowel, possibly distal ileum. Prominent amount of abdominal pelvic ascites, likely related to the acute process, possibly bowel/vascular compromise. Urgent surgical consultation is advised. Findings conveyed to Dr. Membreno by Dr. Josue at 5:20 p.m. on 12/17/2017. Progress Note: Blood work and urine sent. Ordered CT Abd/Pelvis with PO & IV contrast. Patient started on IV fluids. Received call from radiology, CT shows small bowel obstruction. Surgical consult requested. Reevaluation Time: 18:03 Reassessment Condition: Unchanged - Physician Consult Information Time Consulting Physician Contacted: 17:30 Physician Contacted: Nabil Quiros Outcome Of Conversation: Paged for surgical consult @ 17:30. Left voicemail at cell phone and paged answering service. 17:48 Received call back from Dr. Quiros, who will consult patient. Requests patient be admitted to hospitalist's service. residential recycle driver paged, and will evaluate patient in the ER. 17:[address] Nidhi Zheng and he will accept patient on his service. Disposition - Disposition Disposition: HOSPITALIZED Disposition Time: 18:05 Condition: FAIR - POA Present On Arrival: None - Clinical Impression Clinical Impression: Small bowel obstruction - Scribe Statement The provider has reviewed the documentation as recorded by the Scribe (Danita Hale) Provider Attestation: All medical record entries made by the Scribe were at my direction and personally dictated by me. I have reviewed the chart and agree that the record accurately reflects my personal performance of the history, physical exam, medical decision making, and the department course for this patient. I have also personally directed, reviewed, and agree with the discharge instructions and disposition.
[2017-12-17] MEDS ORDERED: Iohexol 240 (50 ml) ONE (14:52)
[2017-12-17 15:22] LABS: BASO % 0.3 % (0.0-2.0); EOS % 0.1 % (0.0-4.0); LYMPH % 11.9 % (20.0-40.0); MEAN CORPUSCULAR HEMOGLOBIN 23.9 pg (27.0-31.0); MEAN CORPUSCULAR HGB CONC 32.3 g/dL (33.0-37.0); MEAN PLATELET VOLUME 7.9 fL (7.2-11.7); MONO % 12.2 % (0.0-10.0); NEUT # 6.3 K/uL (1.8-7.0); NEUT % 75.5 % (50.0-75.0); RBC 4.48 Mil/uL (3.80-5.20); RED CELL DISTRIBUTION WIDTH 16.8 % (11.5-14.5); WHITE BLOOD COUNT 8.4 K/uL (4.8-10.8)
[2017-12-17 15:24] LABS: HEMOGLOBIN 10.7 g/dL (11.0-16.0); MEAN CELL VOLUME 73.9 fL (81.0-99.0)
[2017-12-17 15:32] LABS: ALB/GLOB RATIO 1.1 (1.0-2.1); ALBUMIN 4.5 g/dL (3.5-5.0); ALT/SGPT 13 U/L (9-52); AST/SGOT 17 U/L (14-36); BLOOD UREA NITROGEN 37 mg/dL (7-17); CALCIUM 9.9 mg/dl (8.6-10.4); GFR NON-AFRICAN AMERICAN > 60; LIPASE 40 U/L (23-300)
[2017-12-17 16:00] LABS: HCG,QUALITATIVE URINE NEGATIVE (NEGATIVE)
[2017-12-17 16:09] LABS: SQUAMOUS EPITHIAL 37 /hpf (0-5); URINE BACTERIA RARE (<OCC); URINE BILIRUBIN NEGATIVE (NEGATIVE); URINE BLOOD 2+ (NEGATIVE); URINE CLARITY Hazy (Clear); URINE COLOR Amber (YELLOW); URINE GLUCOSE (UA) NORMAL (Normal); URINE LEUKOCYTE ESTERASE NEG Leu/uL (Negative); URINE PROTEIN 1+ mg/dL (NEGATIVE); URINE UROBILINOGEN NORMAL mg/dL (0.2-1.0)
[2017-12-17] MEDS ORDERED: Iodixanol 320 mg/ml 150 ml Bottle IV ONE (16:22)
--- NOTE | 2017-12-17 17:27 | CT ---
Date of service: 12/17/2017 PROCEDURE: CT Abdomen and Pelvis with contrast HISTORY: abd pain COMPARISON: None. TECHNIQUE: Contrast dose: 100 ml Visipaque 320 Radiation dose: Total exam DLP = 208.1 mGy-cm. This CT exam was performed using one or more of the following dose reduction techniques: Automated exposure control, adjustment of the mA and/or kV according to patient size, and/or use of iterative reconstruction technique. FINDINGS: LOWER THORAX: Unremarkable. LIVER: Hepatic steatosis. No gross lesion. Mild intrahepatic ductal dilatation. GALLBLADDER AND BILE DUCTS: Unremarkable bladder. Prominent CBD. PANCREAS: Unremarkable. No gross lesion or ductal dilatation. SPLEEN: Unremarkable. ADRENALS: Unremarkable. No mass. KIDNEYS AND URETERS: Unremarkable. No hydronephrosis. No solid mass. VASCULATURE: Unremarkable. No aortic aneurysm. BOWEL: Prior gastric bypass surgery. Proximal anastomosis appears intact. Distal anastomosis difficult to evaluate. Diffusely dilated loops of small bowel with apparent swirling of the mesenteric in the right lower quadrant where there appears to be twisting of a loop of bowel, possibly distal ileum. Prominent amount of abdominal pelvic ascites, likely related to the acute bowel process. APPENDIX: Difficult to evaluate. PERITONEUM: Unremarkable. No free fluid. No free air. LYMPH NODES: Unremarkable. No enlarged lymph nodes. BLADDER: Unremarkable. REPRODUCTIVE: Unremarkable. BONES: No acute fracture. OTHER FINDINGS: None. IMPRESSION: Severe small bowel obstruction with apparent swirling of the mesenteric in the right lower quadrant with there appears to be twisting of a loop of bowel, possibly distal ileum. Prominent amount of abdominal pelvic ascites, likely related to the acute process, possibly bowel/vascular compromise. Urgent surgical consultation is advised. Findings conveyed to Dr. Membreno by Dr. Josue at 5:20 p.m. on 12/17/2017.
--- NOTE | 2017-12-17 19:04 | CP.PCM.CON ---
History of Present Illness - History of Present Illness History of Present Illness: General Surgery consult note for Dr. Quiros Consulted for: SBO Patient is a 37F with PSH of exploratory laparotomy for perforated viscous with gastrectomy and zoraida en y 2 months ago who presents to the ED for 3 days of midline severe abdominal pain. patient states that pain is intermittent but increasing in frequency and severity. Patient states that it is associated with one episode of vomiting non-bilious emesis tea-colored. States her last BM was 3 days ago and it was regular consistency, color, and without any blood. State that she has been belching but denies any flactulence. Denies any chest pain, fevers, chills, or any other symptoms. States that before this she had no difficulty eating but hasn't be able to eat much the past 3 days. PMH: depression PSH: umbilical hernia repair, exploratory laparotomy for perforated viscus with partial gastrectomy with zoraida en y, gastro-jejunal anastamosis, and jejunojejunal anastamosis ALL: NKDA Social: smokes 3cigarettes a day, occasionally drinks ETOH--none since surgery in September, denies drugs but tested positive for cannabis in September Review of Systems - Review of Systems All systems: reviewed and no additional remarkable complaints except (as per HPI ) Past Patient History - Past Medical History & Family History Past Medical History?: Yes Past Family History: Reviewed and not pertinent - Past Social History Smoking Status: Light Smoker < 10 Cigarettes Daily Alcohol: None Drugs: Denies - CARDIAC Hx Hypertension: Yes - PULMONARY Hx Tuberculosis: No - NEUROLOGICAL Hx Seizures: No - HEMATOLOGICAL/ONCOLOGICAL Hx Human Immunodeficiency Virus (HIV): No - MUSCULOSKELETAL/RHEUMATOLOGICAL Hx Falls: No - GENITOURINARY/GYNECOLOGICAL Hx Sexually Transmitted Disorders: No - PSYCHIATRIC Hx Anxiety: Yes Hx Depression: Yes Hx Substance Use: No - SURGICAL HISTORY Hx Surgeries: Yes Hx Herniorrhaphy: Yes Other/Comment: Abdominal Ulcer repair 11/17/2017 - ANESTHESIA Hx Anesthesia: Yes Hx Anesthesia Reactions: No Meds Allergies/Adverse Reactions: Allergies Allergy/AdvReac Type Severity Reaction Status Date / Time No Known Allergies Allergy Verified 11/18/17 02:43 Physical Exam - Constitutional Appears: Well, Non-toxic, No Acute Distress - Head Exam Head Exam: ATRAUMATIC, NORMOCEPHALIC - Eye Exam Eye Exam: Normal appearance. absent: Conjunctival injection, Scleral icterus - ENT Exam ENT Exam: Mucous Membranes Moist, Normal Oropharynx - Respiratory Exam Respiratory Exam: NORMAL BREATHING PATTERN. absent: Accessory Muscle Use, Respiratory Distress - Cardiovascular Exam Cardiovascular Exam: RRR - GI/Abdominal Exam GI & Abdominal Exam: Distended, Soft, Tenderness (diffuse moderate tenderness, worse in the RLQ). absent: Guarding, Rebound, Rigid Additional comments: midline incision scar well healed, deep sutures palpable through the skin - Extremities Exam Extremities exam: Positive for: pedal pulses present. Negative for: calf tenderness, pedal edema - Back Exam Back exam: absent: CVA tenderness (L), CVA tenderness (R) - Neurological Exam Neurological exam: Alert, Oriented x3 - Psychiatric Exam Psychiatric exam: Normal Affect, Normal Mood - Skin Skin Exam: Dry, Intact, Normal Color, Warm Results - Vital Signs Recent Vital Signs: Last Vital Signs Temp 98.5 F 12/17/17 17:50 Pulse 101 H 12/17/17 17:50 Resp 18 12/17/17 17:50 BP 119/84 12/17/17 17:50 Pulse Ox 100 12/17/17 18:24 - Labs Result Diagrams: 12/17/17 15:17 12/17/17 15:17 Labs: Laboratory Results - last 24 hr 12/17/17 12/17/17 12/17/17 15:17 15:17 15:48 WBC 8.4 RBC 4.48 Hgb 10.7 L D Hct 33.1 L MCV 73.9 L D MCH 23.9 L MCHC 32.3 L RDW 16.8 H Plt Count 421 H D MPV 7.9 Neut % (Auto) 75.5 H Lymph % (Auto) 11.9 L Cavalier % (Auto) 12.2 H Eos % (Auto) 0.1 Baso % (Auto) 0.3 Neut # (Auto) 6.3 Lymph # (Auto) 1.0 Cavalier # (Auto) 1.0 H Eos # (Auto) 0.0 Baso # (Auto) 0.0 Sodium 134 Potassium 4.3 Chloride 97 L Carbon Dioxide 22 Anion Gap 20 BUN 37 H Creatinine 0.8 Est GFR ( Amer) > 60 Est GFR (Non-Af Amer) > 60 Random Glucose 115 H Calcium 9.9 Total Bilirubin 0.5 AST 17 ALT 13 Alkaline Phosphatase 100 Total Protein 8.6 H Albumin 4.5 Globulin 4.1 H Albumin/Globulin Ratio 1.1 Lipase 40 Urine Color Marilee Urine Clarity Hazy Urine pH 5.0 Ur Specific [place] 1.034 H Urine Protein 1+ H Urine Glucose (UA) Normal Urine Ketones 1+ H Urine Blood 2+ H Urine Nitrate Negative Urine Bilirubin Negative Urine Urobilinogen Normal Ur Leukocyte Esterase Neg Urine WBC (Auto) 5 Urine RBC (Auto) 22 H Ur Squamous Epith Cells 37 H Urine Bacteria Rare Urine HCG, Qual Negative - Imaging and Cardiology CT scan - abdomen Status: Image reviewed by me, Report reviewed by me Assessment & Plan - Assessment and Plan (Free Text) Assessment: 37F PSH of exploratory laparotomy with partial gastrectomy and jejunojenunal and gastrojejunal anastomoses 2 months ago with acute SBO--possibly d/t adhesion vs. internal hernia Plan: NGT inserted at bedside with 200cc's of clear fluid with PO contrast output-- adequate placement confirmed on auscultation and CXR--keep NGT to wall suction Strict NPO PRN pain and nausea medication IVF IV cipro and flagyl Repeat CBC, CMP in the AM ABG tonight to re-evaluate lactic acid for any sign of intestinal ischemia Abdominal X-ray in the AM Serial abdominal exams Strict intake and output of NGT ouput and urine output SCD's Further surgical planning pending clinical progression and study results--will watch closely Discussed with DR. Quiros, who agrees with above Merced Mendez, Pgy2
[2017-12-17] MEDS ORDERED: metroNIDAZOLE IV 500 mg/100 ml 500 MG/100 ML BAG ONE (19:36)
[2017-12-17] MEDS: metroNIDAZOLE IV 500 mg/100 ml 500 MG/100 ML BAG IVPB SCH (19:39)
[2017-12-17] MEDS ORDERED: Lactated Ringer's 1,000 ML ONE (19:57)
[2017-12-17] MEDS: Lactated Ringer's 1,000 ML IV SCH (20:01)
[2017-12-17] MEDS ORDERED: Ciprofloxacin 400mg/200ml D5W 400 MG/200 ML BAG IVPB ONE (20:39)
[2017-12-17] MEDS: Ciprofloxacin 400mg/200ml D5W 400 MG/200 ML BAG IVPB SCH (20:54)
[2017-12-17 22:24] LABS: ARTERIAL BLOOD GAS HCO3 24.1 mmol/L (21-28); ARTERIAL BLOOD GAS O2 SAT 92.9 % (95-98); ARTERIAL BLOOD GAS PCO2 41 mm/Hg (35-45); ARTERIAL BLOOD GAS PH 7.38 (7.35-7.45); ARTERIAL BLOOD GAS PO2 56 mm/Hg (80-100); ARTERIAL BLOOD GAS TCO2 25.6 mmol/L (22-28)
[2017-12-17 22:32] VITALS: RESP 20
[2017-12-18] MEDS: metroNIDAZOLE IV 500 mg/100 ml 500 MG/100 ML BAG IVPB SCH ×3 (02:41→19:13)
[2017-12-18] MEDS: Benzocaine/Menthol (Cepacol) Lozenge MT PRN ×3 (02:42→21:32)
[2017-12-18] MEDS: Lactated Ringer's 1,000 ML IV SCH ×2 (06:49→15:30)
--- NOTE | 2017-12-18 08:06 | CP.PCM.PN ---
Subjective - Date & Time of Evaluation Date of Evaluation: 12/18/17 Time of Evaluation: 06:50 - Subjective Subjective: Patient seen and examined. No acute events over night. Patient reports feeling better since NGT insertion. 345cc/24 hrs, bilious. Denies passing flatus, BM. Objective - Vital Signs/Intake and Output Vital Signs (last 24 hours): Temp Pulse Resp BP Pulse Ox 99.3 F 75 20 119/84 99 12/17/17 23:32 12/17/17 23:32 12/17/17 23:32 12/17/17 23:32 12/17/17 23:32 Intake and Output: 12/18/17 12/18/17 06:59 18:59 Intake Total 500 800 Output Total 230 345 Balance 270 455 - Medications Medications: Current Medications Benzocaine/Menthol (Cepacol Sore Throat) 1 marilia MT Q2H PRN PRN Reason: Sore Throat Last Admin: 12/18/17 02:42 Dose: 1 marilia Ciprofloxacin (Cipro 400mg/200ml Dsw) 400 mg in 200 mls @ 133 mls/hr IVPB Q12H [facility] PRN Reason: Protocol Last Admin: 12/17/17 20:54 Dose: 133 mls/hr Metronidazole (Flagyl) 500 mg in 100 mls @ 100 mls/hr IVPB Q8H [facility] PRN Reason: Protocol Last Admin: 12/18/17 02:41 Dose: 100 mls/hr Lactated Ringer's (Lactated Ringer's) 1,000 mls @ 100 mls/hr IV .Q10H [facility] Last Admin: 12/18/17 06:49 Dose: 100 mls/hr Ketorolac Tromethamine (Toradol) 30 mg IVP Q6 PRN PRN Reason: Pain, moderate (4-7) Last Admin: 12/17/17 22:27 Dose: 30 mg Pneumococcal Polyvalent Vaccine (Pneumovax 23 Vaccine) 0.5 ml IM .ONCE ONE Stop: 12/18/17 10:01 - Labs Labs: 12/17/17 15:17 12/17/17 15:17 - Constitutional Appears: No Acute Distress - Head Exam Head Exam: NORMOCEPHALIC - Eye Exam Eye Exam: Normal appearance - ENT Exam ENT Exam: Mucous Membranes Moist - Respiratory Exam Respiratory Exam: NORMAL BREATHING PATTERN - Cardiovascular Exam Cardiovascular Exam: +S1, +S2 - GI/Abdominal Exam GI & Abdominal Exam: Soft, Tenderness. absent: Distended, Firm, Guarding, Rigid , Rebound Additional comments: mild tenderness of deep palpation - Neurological Exam Neurological Exam: Alert, Awake, Oriented x3 - Psychiatric Exam Psychiatric exam: Normal Mood - Skin Skin Exam: Dry, Intact, Warm Assessment and Plan - Assessment and Plan (Free Text) Assessment: 37F with SBO Plan: -NPO -IVF -Anaglesic prn -Anti-emetic prn -NGT to LIS -Encourage ambulation, may clamp NGT -DVT ppx -F/u AM labs -D/w Dr. Chula Cesar PGY3
--- NOTE | 2017-12-18 08:21 | RAD ---
Chest x-ray single frontal view History: NG tube placement. Comparison: 02/24/2017 Findings: NG tube extending into the stomach. No focal infiltrate or effusion. Left hilar prominence. Bibasilar breast and nipple shadows. Tortuous aorta. Heart size within normal limits. Impression: NG tube extending into the stomach.
--- NOTE | 2017-12-18 08:21 | CP.PCM.PN ---
Subjective - Date & Time of Evaluation Date of Evaluation: 12/18/17 Time of Evaluation: 08:00 - Subjective Subjective: PGY-2 Med Note- Dr. Nidhi Zheng's service Patient is a 37 year old female with recent surgery in September listed below who came to the hospital for severe abdominal pain. Patient states she continues to have diffuse abdominal pain. PMH: depression, anemia and hypertension PSH: umbilical hernia repair, (10/18/17) exploratory laparotomy for perforated viscus with partial gastrectomy with zoraida en y, gastro-jejunal anastamosis, and jejunojejunal anastamosis ALL: NKDA Social: smokes 3cigarettes a day; drinks ETOH; denies illicit drug use (patient tested positive for cannabis, barbiturates, phencylcidine in September) Objective - Vital Signs/Intake and Output Vital Signs (last 24 hours): Temp Pulse Resp BP Pulse Ox 98.8 F 91 H 20 114/77 100 12/18/17 08:14 12/18/17 08:14 12/18/17 08:14 12/18/17 08:14 12/18/17 08:14 Intake and Output: 12/18/17 12/18/17 06:59 18:59 Intake Total 500 800 Output Total 230 345 Balance 270 455 - Medications Medications: Current Medications Benzocaine/Menthol (Cepacol Sore Throat) 1 marilia MT Q2H PRN PRN Reason: Sore Throat Last Admin: 12/18/17 02:42 Dose: 1 marilia Enoxaparin Sodium (Lovenox) 40 mg SC DAILY [facility] Ciprofloxacin (Cipro 400mg/200ml Dsw) 400 mg in 200 mls @ 133 mls/hr IVPB Q12H [facility] PRN Reason: Protocol Last Admin: 12/17/17 20:54 Dose: 133 mls/hr Metronidazole (Flagyl) 500 mg in 100 mls @ 100 mls/hr IVPB Q8H [facility] PRN Reason: Protocol Last Admin: 12/18/17 02:41 Dose: 100 mls/hr Lactated Ringer's (Lactated Ringer's) 1,000 mls @ 100 mls/hr IV .Q10H [facility] Last Admin: 12/18/17 06:49 Dose: 100 mls/hr Ketorolac Tromethamine (Toradol) 30 mg IVP Q6 PRN PRN Reason: Pain, moderate (4-7) Last Admin: 12/17/17 22:27 Dose: 30 mg Pneumococcal Polyvalent Vaccine (Pneumovax 23 Vaccine) 0.5 ml IM .ONCE ONE Stop: 12/18/17 10:01 - Labs Labs: 12/17/17 15:17 12/17/17 15:17 - Constitutional Appears: In Acute Distress, Cachectic - Head Exam Head Exam: ATRAUMATIC, NORMAL INSPECTION - Eye Exam Eye Exam: EOMI, Normal appearance, PERRL Pupil Exam: NORMAL ACCOMODATION - ENT Exam ENT Exam: Mucous Membranes Moist - Respiratory Exam Respiratory Exam: NORMAL BREATHING PATTERN - Cardiovascular Exam Cardiovascular Exam: REGULAR RHYTHM, +S1, +S2 - GI/Abdominal Exam GI & Abdominal Exam: Tenderness - Extremities Exam Extremities Exam: Normal Inspection - Neurological Exam Neurological Exam: Alert, Awake, Oriented x3 - Psychiatric Exam Psychiatric exam: Normal Affect - Skin Skin Exam: Normal Color Assessment and Plan - Assessment and Plan (Free Text) Assessment: Small Bowel Obstruction - General Surgery Consult: Dr. Quiros --> help appreciated - Imaging: * CT Abd/Pelvis: Severe small bowel obstruction with apparent swirling of the mesenteric in the right lower quadrant with there appears to be twisting of a loop of bowel, possibly distal ileum. Prominent amount of abdominal pelvic ascites, likely related to the acute process, possibly bowel/vascular compromise. Urgent surgical consultation is advised. * f/u abdominal xray - NGT * Chest xray: NG tube extending into the stomach. - NPO - Medications: * LR @ 100cc/hr * Metronidazole 500mg q8h (started 12/17/17) * Ciprofloxacin 400mg q12h (started 12/17/17 History of Hypertension -Currently normatensive -Continue to monitor History of Anemia - Hgb 10.7/33.1, asymptomatic -Will continue to monitor History of Depression - Home medications on hold: Zoloft 50mg PO dialy andTrazadone 50mg PO HS History of Substance abuse - Cessation advised GI/DVT ppx: - Lovenox 40mg SC daily - SCDs All medical management per Dr. Nancy Burger PGY-2
[2017-12-18] MEDS: Ciprofloxacin 400mg/200ml D5W 400 MG/200 ML BAG IVPB SCH ×2 (09:48→19:17)
[2017-12-18] MEDS ORDERED: Pneumococcal 23-Valent Vaccine IM ONE (10:00)
[2017-12-18] MEDS ORDERED: Enoxaparin 40 mg Syringe SC SCH (11:39)
[2017-12-18 11:49] LABS: BASO % 0.6 % (0.0-2.0); EOS % 0.2 % (0.0-4.0); HEMOGLOBIN 8.8 g/dL (11.0-16.0); LYMPH # 0.7 K/uL (1.0-4.3); LYMPH % 8.9 % (20.0-40.0); MEAN CORPUSCULAR HEMOGLOBIN 23.7 pg (27.0-31.0); MEAN PLATELET VOLUME 8.3 fL (7.2-11.7); MONO # 0.9 K/uL (0.0-0.8); MONO % 11.1 % (0.0-10.0); NEUT % 79.2 % (50.0-75.0); PLATELET COUNT 351 K/uL (130-400); RBC 3.73 Mil/uL (3.80-5.20); RED CELL DISTRIBUTION WIDTH 17.1 % (11.5-14.5); WHITE BLOOD COUNT 7.6 K/uL (4.8-10.8)
[2017-12-18 12:19] LABS: ANISOCYTOSIS SLIGHT; BANDS 4 % (0-2); HYPOCHROMIC SLIGHT; LYMPHOCYTE 6 % (20-40); MONOCYTE 11 % (0-10); NEUTROPHIL 79 % (50-75); PLATELET ESTIMATE NORMAL (NORMAL); POIKILOCYTOSIS SLIGHT; TEARDROP CELLS SLIGHT; TOTAL CELLS COUNTED 100
[2017-12-18 12:20] LABS: GIANT PLATELETS PRESENT; LARGE PLATELETS PRESENT; TARGET CELLS SLIGHT
[2017-12-18 12:29] LABS: ALB/GLOB RATIO 1.1 (1.0-2.1); ALBUMIN 3.7 g/dL (3.5-5.0); ALT/SGPT 19 U/L (9-52); AST/SGOT 18 U/L (14-36); BLOOD UREA NITROGEN 27 mg/dL (7-17); CALCIUM 9.3 mg/dl (8.6-10.4); GFR NON-AFRICAN AMERICAN > 60
[2017-12-18] MEDS: Enoxaparin 40 mg Syringe SC SCH (12:36)
--- NOTE | 2017-12-18 13:20 | RAD ---
Date of service: 12/18/2017 HISTORY: SBO COMPARISON: CT abdomen and pelvic December 17 1017 FINDINGS: BOWEL: In the left paracentral abdomen there are dilated small bowel loops present compatible with the previously referenced distal small bowel obstruction noted on the CT exam. An NG tube is inserted its tip is in the expected postop stomach site where surgical clips are noted. There is gas and stool in the left and right colon present. Contrast laden urine over a minimally distended bladder is noted. BONES: Normal. OTHER FINDINGS: None. IMPRESSION: Small bowel obstruction - may be incomplete and/or intermittent. Clinical follow-up recommend NG tube inserted Follow-up recommend
--- NOTE | 2017-12-18 19:16 | CP.PCM.HP ---
Past Patient History - Past Medical History & Family History Past Medical History?: Yes - Past Social History Smoking Status: Light Smoker < 10 Cigarettes Daily - CARDIAC Hx Hypertension: Yes - PULMONARY Hx Tuberculosis: No - NEUROLOGICAL Hx Seizures: No - HEMATOLOGICAL/ONCOLOGICAL Hx Human Immunodeficiency Virus (HIV): No - MUSCULOSKELETAL/RHEUMATOLOGICAL Hx Falls: No - GASTROINTESTINAL Other/Comment: perforated doudenem,perforated viscous - GENITOURINARY/GYNECOLOGICAL Hx Sexually Transmitted Disorders: No - PSYCHIATRIC Hx Anxiety: Yes Hx Depression: Yes Hx Substance Use: No - SURGICAL HISTORY Hx Surgeries: Yes Hx Herniorrhaphy: Yes Other/Comment: Abdominal Ulcer repair 11/17/2017. partial gastrectomy, gastrojejunostomy,omental patch - ANESTHESIA Hx Anesthesia: Yes Hx Anesthesia Reactions: No Meds Allergies/Adverse Reactions: Allergies Allergy/AdvReac Type Severity Reaction Status Date / Time No Known Allergies Allergy Verified 11/18/17 02:43 Physical Exam - Constitutional Appears: Well - Head Exam Head Exam: ATRAUMATIC, NORMAL INSPECTION, NORMOCEPHALIC - Eye Exam Eye Exam: EOMI, Normal appearance, PERRL Pupil Exam: NORMAL ACCOMODATION, PERRL - ENT Exam ENT Exam: Mucous Membranes Moist, Normal Exam - Neck Exam Neck exam: Positive for: Normal Inspection - Respiratory Exam Respiratory Exam: Decreased Breath Sounds - Cardiovascular Exam Cardiovascular Exam: REGULAR RHYTHM, +S1, +S2 - GI/Abdominal Exam GI & Abdominal Exam: Diminished Bowel Sounds, Soft - Rectal Exam Rectal Exam: Deferred Results - Vital Signs Recent Vital Signs: Last Vital Signs Temp 98.4 F 12/18/17 16:00 Pulse 63 12/18/17 16:00 Resp 20 12/18/17 16:00 BP 115/77 12/18/17 16:00 Pulse Ox 98 12/18/17 16:00 - Labs Result Diagrams: 12/18/17 11:31 12/18/17 11:31 Labs: Laboratory Results - last 24 hr 12/17/17 12/17/17 12/18/17 19:24 20:20 11:31 WBC RBC Hgb Hct MCV MCH MCHC RDW Plt Count MPV Neut % (Auto) Lymph % (Auto) [place] % (Auto) Eos % (Auto) Baso % (Auto) Neut # (Auto) Lymph # (Auto) [place] # (Auto) Eos # (Auto) Baso # (Auto) Neutrophils % (Manual) Band Neutrophils % Lymphocytes % (Manual) Monocytes % (Manual) Platelet Estimate Large Platelets Giant Platelets Hypochromasia (manual) Poikilocytosis (manual Anisocytosis (manual) Target Cells Tear Drop Cells Puncture Site Venous pCO2 41 pO2 56 L HCO3 24.1 ABG pH 7.38 ABG Total CO2 25.6 ABG O2 Saturation 92.9 L ABG Base Excess -0.8 Diomedes Test Na ABG Potassium 3.7 Sodium 135.0 134 Chloride 103.0 98 Glucose 103 Lactate 0.7 Potassium 3.7 Carbon Dioxide 24 Anion Gap 16 BUN 27 H Creatinine 0.7 Est GFR ( Amer) > 60 Est GFR (Non-Af Amer) > 60 Random Glucose 108 H Lactic Acid 0.7 Calcium 9.3 Phosphorus 3.2 Magnesium 2.0 Total Bilirubin 0.5 AST 18 ALT 19 Alkaline Phosphatase 80 Total Protein 7.1 Albumin 3.7 Globulin 3.4 Albumin/Globulin Ratio 1.1 Arterial Blood Potassium 3.7 12/18/17 11:31 WBC 7.6 RBC 3.73 L Hgb 8.8 L Hct 27.6 L MCV 74.0 L MCH 23.7 L MCHC 32.0 L RDW 17.1 H Plt Count 351 MPV 8.3 Neut % (Auto) 79.2 H Lymph % (Auto) 8.9 L [place] % (Auto) 11.1 H Eos % (Auto) 0.2 Baso % (Auto) 0.6 Neut # (Auto) 6.0 Lymph # (Auto) 0.7 L [place] # (Auto) 0.9 H Eos # (Auto) 0.0 Baso # (Auto) 0.0 Neutrophils % (Manual) 79 H Band Neutrophils % 4 H Lymphocytes % (Manual) 6 L Monocytes % (Manual) 11 H Platelet Estimate Normal Large Platelets Present Giant Platelets Present Hypochromasia (manual) Slight Poikilocytosis (manual Slight Anisocytosis (manual) Slight Target Cells Slight Tear Drop Cells Slight Puncture Site pCO2 pO2 HCO3 ABG pH ABG Total CO2 ABG O2 Saturation ABG Base Excess Diomedes Test ABG Potassium Sodium Chloride Glucose Lactate Potassium Carbon Dioxide Anion Gap BUN Creatinine Est GFR ( Amer) Est GFR (Non-Af Amer) Random Glucose Lactic Acid Calcium Phosphorus Magnesium Total Bilirubin AST ALT Alkaline Phosphatase Total Protein Albumin Globulin Albumin/Globulin Ratio Arterial Blood Potassium
[2017-12-19] MEDS: Lactated Ringer's 1,000 ML IV SCH ×3 (01:30→22:02)
[2017-12-19] MEDS: metroNIDAZOLE IV 500 mg/100 ml 500 MG/100 ML BAG IVPB SCH ×3 (03:23→20:01)
[2017-12-19] MEDS: Benzocaine/Menthol (Cepacol) Lozenge MT PRN ×4 (04:53→22:02)
[2017-12-19 07:50] LABS: ALB/GLOB RATIO 1.1 (1.0-2.1); ALBUMIN 3.7 g/dL (3.5-5.0); ALT/SGPT 17 U/L (9-52); AST/SGOT 41 U/L (14-36); BLOOD UREA NITROGEN 32 mg/dL (7-17); CALCIUM 9.6 mg/dl (8.6-10.4); GFR NON-AFRICAN AMERICAN > 60
[2017-12-19 07:52] LABS: BASO % 0.3 % (0.0-2.0); EOS % 0.4 % (0.0-4.0); HEMOGLOBIN 8.7 g/dL (11.0-16.0); LYMPH # 0.4 K/uL (1.0-4.3); LYMPH % 5.8 % (20.0-40.0); MEAN CELL VOLUME 73.5 fL (81.0-99.0); MEAN CORPUSCULAR HEMOGLOBIN 23.5 pg (27.0-31.0); MEAN PLATELET VOLUME 8.3 fL (7.2-11.7); NEUT # 5.3 K/uL (1.8-7.0); NEUT % 78.5 % (50.0-75.0); PLATELET COUNT 317 K/uL (130-400); RBC 3.69 Mil/uL (3.80-5.20); RED CELL DISTRIBUTION WIDTH 16.2 % (11.5-14.5); WHITE BLOOD COUNT 6.8 K/uL (4.8-10.8)
[2017-12-19] MEDS: Ciprofloxacin 400mg/200ml D5W 400 MG/200 ML BAG IVPB SCH (08:06)
[2017-12-19 09:24] LABS: BANDS 26 % (0-2); LYMPHOCYTE 10 % (20-40); MONOCYTE 12 % (0-10); NEUTROPHIL 52 % (50-75); TOTAL CELLS COUNTED 100
--- NOTE | 2017-12-19 09:24 | CP.PCM.PN ---
Subjective - Date & Time of Evaluation Date of Evaluation: 12/19/17 Time of Evaluation: 08:00 - Subjective Subjective: PGY-2 Med Note- Dr. Nidhi Zheng's service Patient is a 37 year old female with recent surgery in September listed below who came to the hospital for severe abdominal pain. Patient states she continues to have diffuse abdominal pain and fever. Objective - Vital Signs/Intake and Output Vital Signs (last 24 hours): Temp Pulse Resp BP Pulse Ox 98.2 F 111 H 20 105/67 99 12/19/17 02:00 12/19/17 02:00 12/19/17 02:00 12/19/17 02:00 12/19/17 02:00 Intake and Output: 12/19/17 12/19/17 06:59 18:59 Intake Total 800 800 Output Total 1700 1350 Balance -900 -550 - Medications Medications: Current Medications Benzocaine/Menthol (Cepacol Sore Throat) 1 marilia MT Q2H PRN PRN Reason: Sore Throat Last Admin: 12/19/17 08:23 Dose: 1 marilia Enoxaparin Sodium (Lovenox) 40 mg SC DAILY [facility] Last Admin: 12/18/17 12:36 Dose: 40 mg Ciprofloxacin (Cipro 400mg/200ml Dsw) 400 mg in 200 mls @ 133 mls/hr IVPB Q12H [facility] PRN Reason: Protocol Last Admin: 12/19/17 08:06 Dose: 133 mls/hr Metronidazole (Flagyl) 500 mg in 100 mls @ 100 mls/hr IVPB Q8H [facility] PRN Reason: Protocol Last Admin: 12/19/17 03:23 Dose: 100 mls/hr Lactated Ringer's (Lactated Ringer's) 1,000 mls @ 100 mls/hr IV .Q10H [facility] Last Admin: 12/19/17 01:30 Dose: Not Given Ketorolac Tromethamine (Toradol) 30 mg IVP Q6 PRN PRN Reason: Pain, moderate (4-7) Last Admin: 12/19/17 08:15 Dose: 30 mg - Labs Labs: 12/19/17 07:00 12/19/17 07:00 - Constitutional Appears: No Acute Distress, Cachectic - Head Exam Head Exam: ATRAUMATIC, NORMAL INSPECTION - Eye Exam Eye Exam: EOMI, Normal appearance - ENT Exam ENT Exam: Mucous Membranes Moist - Respiratory Exam Respiratory Exam: Clear to Ausculation Bilateral, NORMAL BREATHING PATTERN - Cardiovascular Exam Cardiovascular Exam: REGULAR RHYTHM, +S1, +S2 - GI/Abdominal Exam GI & Abdominal Exam: Soft, Tenderness, Normal Bowel Sounds - Extremities Exam Extremities Exam: Normal Inspection - Neurological Exam Neurological Exam: Alert, Awake, Oriented x3 - Psychiatric Exam Psychiatric exam: Normal Affect - Skin Skin Exam: Normal Color Assessment and Plan - Assessment and Plan (Free Text) Assessment: Small Bowel Obstruction - General Surgery Consult: Dr. Quiros --> help appreciated - per surgery - no surgical intervention at this time - Imaging: * CT Abd/Pelvis: Severe small bowel obstruction with apparent swirling of the mesenteric in the right lower quadrant with there appears to be twisting of a loop of bowel, possibly distal ileum. Prominent amount of abdominal pelvic ascites, likely related to the acute process, possibly bowel/vascular compromise. Urgent surgical consultation is advised. * Abdominal xray: Small bowel obstruction - may be incomplete and/or intermittent. - NGT * Chest xray: NG tube extending into the stomach. - NPO - Medications: * LR @ 100cc/hr Bandemia - Bands 26 - Temp 100.4 - ID Consult: Dr. Fermin --> help appreciated - Medications: * Cipro 400mg IV q12h * Metronidazole 500mg IV q8h * Tylenol 650mg NG q6h prn for fever History of Hypertension - Currently normatensive - Continue to monitor History of Anemia - Hgb 8.7/27.1 asymptomatic - Will continue to monitor History of Depression - Home medications on hold: Zoloft 50mg PO dialy and Trazadone 50mg PO HS History of Substance abuse - Cessation advised GI/DVT ppx: - Lovenox 40mg SC daily - SCDs All medical management per Dr. Nancy Burger PGY-2
[2017-12-19 09:25] LABS: ANISOCYTOSIS SLIGHT; HYPOCHROMIC SLIGHT; OVALOCYTES SLIGHT; PLATELET ESTIMATE NORMAL (NORMAL); POIKILOCYTOSIS SLIGHT; TARGET CELLS SLIGHT
[2017-12-19] MEDS ORDERED: Enoxaparin 40 mg Syringe SC SCH (10:00)
--- NOTE | 2017-12-19 10:56 | RAD ---
Date of service: 12/18/2017 HISTORY: s/p ngt COMPARISON: Chest radiograph dated 12/17/2017 FINDINGS: LUNGS: No active pulmonary disease. PLEURA: No significant pleural effusion identified, no pneumothorax apparent. CARDIOVASCULAR: Normal. OSSEOUS STRUCTURES: No significant abnormalities. VISUALIZED UPPER ABDOMEN: Surgical material in the left upper quadrant. OTHER FINDINGS: Enteric tube has been pulled back with tip in the distal esophagus. IMPRESSION: Malpositioned enteric tube. Advancement is recommended.
--- NOTE | 2017-12-19 11:07 | RAD ---
Date of service: 12/19/2017 HISTORY: s/p NGT insertion COMPARISON: 12/18/2017 FINDINGS: LUNGS: No active pulmonary disease. PLEURA: No significant pleural effusion identified, no pneumothorax apparent. CARDIOVASCULAR: Normal heart size. Nasogastric tube extends to left upper quadrant of abdomen. OSSEOUS STRUCTURES: No significant abnormalities. VISUALIZED UPPER ABDOMEN: Normal. OTHER FINDINGS: None. IMPRESSION: Nasogastric tube properly positioned. Otherwise unremarkable.
[2017-12-19] MEDS: Enoxaparin 40 mg Syringe SC SCH (13:14)
[2017-12-19] MEDS ORDERED: Acetaminophen IV 1,000 MG in Premixed IV 1 EA IV PRN (13:34)
[2017-12-19] MEDS ORDERED: Acetaminophen 650mg/20.3ml solution UD NG PRN ×2 (13:52→14:51)
--- NOTE | 2017-12-19 15:19 | CP.PCM.PN ---
Subjective - Date & Time of Evaluation Date of Evaluation: 12/19/17 Time of Evaluation: 07:00 - Subjective Subjective: GENERAL SURGERY PROGRESS NOTE FOR DR. HA Patient seen and examined at bedside. She passed flatus yesterday and today. She denies BM. Denies nausea or vomiting. Denies abdominal pain. Objective - Vital Signs/Intake and Output Vital Signs (last 24 hours): Temp Pulse Resp BP Pulse Ox 100.4 F H 111 H 20 105/67 99 12/19/17 14:12 12/19/17 02:00 12/19/17 02:00 12/19/17 02:00 12/19/17 02:00 Intake and Output: 12/19/17 12/19/17 06:59 18:59 Intake Total 800 1900 Output Total 1700 2700 Balance -900 -800 - Medications Medications: Current Medications Acetaminophen (Tylenol 650mg/20.3ml Solution Ud) 650 mg NG Q6H PRN PRN Reason: Fever >100.4 F Benzocaine/Menthol (Cepacol Sore Throat) 1 marilia MT Q2H PRN PRN Reason: Sore Throat Last Admin: 12/19/17 08:23 Dose: 1 marilia Enoxaparin Sodium (Lovenox) 40 mg SC DAILY [facility] Last Admin: 12/19/17 13:14 Dose: 40 mg Ciprofloxacin (Cipro 400mg/200ml Dsw) 400 mg in 200 mls @ 133 mls/hr IVPB Q12H [facility] PRN Reason: Protocol Last Admin: 12/19/17 08:06 Dose: 133 mls/hr Metronidazole (Flagyl) 500 mg in 100 mls @ 100 mls/hr IVPB Q8H [facility] PRN Reason: Protocol Last Admin: 12/19/17 12:35 Dose: 100 mls/hr Lactated Ringer's (Lactated Ringer's) 1,000 mls @ 100 mls/hr IV .Q10H [facility] Last Admin: 12/19/17 13:14 Dose: 100 mls/hr Ketorolac Tromethamine (Toradol) 30 mg IVP Q6 PRN PRN Reason: Pain, moderate (4-7) Last Admin: 12/19/17 14:12 Dose: 30 mg - Labs Labs: 12/19/17 07:00 12/19/17 07:00 - Constitutional Appears: Non-toxic, No Acute Distress - Head Exam Head Exam: ATRAUMATIC, NORMAL INSPECTION - Eye Exam Eye Exam: EOMI, Normal appearance - Respiratory Exam Respiratory Exam: NORMAL BREATHING PATTERN. absent: Respiratory Distress - Cardiovascular Exam Cardiovascular Exam: +S1, +S2 - GI/Abdominal Exam GI & Abdominal Exam: Distended (mild), Soft. absent: Firm, Guarding, Rigid, Tenderness, Rebound - Neurological Exam Neurological Exam: Alert, Awake, Oriented x3 Assessment and Plan - Assessment and Plan (Free Text) Assessment: 37yo F with SBO - NG tube advanced yesterday, Chest X-ray confirmed placement - Continue NG tube to suction due to high output (august clamp while ambulating) - Temp of 100.4, bands 26, pt on Cipro/Flagyl, primary consulting ID - Encourage ambulation and OOB - Discussed plan with Dr. Chula Whitley PGY-4
--- NOTE | 2017-12-19 19:18 | CP.PCM.PN ---
Subjective - Date & Time of Evaluation Date of Evaluation: 12/19/17 Time of Evaluation: 07:30 - Subjective Subjective: clinically same Objective - Vital Signs/Intake and Output Vital Signs (last 24 hours): Temp Pulse Resp BP Pulse Ox 98.0 F 100 H 20 104/60 99 12/19/17 18:30 12/19/17 18:30 12/19/17 18:30 12/19/17 18:30 12/19/17 18:30 Intake and Output: 12/19/17 12/20/17 18:59 06:59 Intake Total 1900 Output Total 2700 Balance -800 - Medications Medications: Current Medications Acetaminophen (Tylenol 650mg/20.3ml Solution Ud) 650 mg NG Q6H PRN PRN Reason: Fever >100.4 F Benzocaine/Menthol (Cepacol Sore Throat) 1 marilia MT Q2H PRN PRN Reason: Sore Throat Last Admin: 12/19/17 08:23 Dose: 1 marilia Enoxaparin Sodium (Lovenox) 40 mg SC DAILY [facility] Last Admin: 12/19/17 13:14 Dose: 40 mg Ciprofloxacin (Cipro 400mg/200ml Dsw) 400 mg in 200 mls @ 133 mls/hr IVPB Q12H [facility] PRN Reason: Protocol Last Admin: 12/19/17 08:06 Dose: 133 mls/hr Metronidazole (Flagyl) 500 mg in 100 mls @ 100 mls/hr IVPB Q8H [facility] PRN Reason: Protocol Last Admin: 12/19/17 12:35 Dose: 100 mls/hr Lactated Ringer's (Lactated Ringer's) 1,000 mls @ 100 mls/hr IV .Q10H [facility] Last Admin: 12/19/17 13:14 Dose: 100 mls/hr Ketorolac Tromethamine (Toradol) 30 mg IVP Q6 PRN PRN Reason: Pain, moderate (4-7) Last Admin: 12/19/17 14:12 Dose: 30 mg - Labs Labs: 12/19/17 07:00 12/19/17 07:00 - Constitutional Appears: Well - Head Exam Head Exam: ATRAUMATIC, NORMAL INSPECTION, NORMOCEPHALIC - Eye Exam Eye Exam: EOMI, Normal appearance, PERRL Pupil Exam: NORMAL ACCOMODATION, PERRL - ENT Exam ENT Exam: Mucous Membranes Moist, Normal Exam - Neck Exam Neck Exam: Full ROM, Normal Inspection. absent: Lymphadenopathy - Respiratory Exam Respiratory Exam: Decreased Breath Sounds - Cardiovascular Exam Cardiovascular Exam: REGULAR RHYTHM, +S1, +S2 - GI/Abdominal Exam GI & Abdominal Exam: Soft, Diminished Bowel Sounds - Rectal Exam Rectal Exam: Deferred
[2017-12-19] MEDS: Meropenem 1 GM in Sodium Chloride 0.9% 100 ML IVPB SCH (20:00)
[2017-12-20] MEDS: Lactated Ringer's 1,000 ML IV SCH ×3 (02:11→17:32)
[2017-12-20] MEDS: metroNIDAZOLE IV 500 mg/100 ml 500 MG/100 ML BAG IVPB SCH ×3 (02:30→19:21)
[2017-12-20] MEDS: Meropenem 1 GM in Sodium Chloride 0.9% 100 ML IVPB SCH ×3 (04:35→21:42)
[2017-12-20] MEDS: Benzocaine/Menthol (Cepacol) Lozenge MT PRN (04:40)
--- NOTE | 2017-12-20 09:23 | CP.PCM.PN ---
Subjective - Date & Time of Evaluation Date of Evaluation: 12/20/17 Time of Evaluation: 07:25 - Subjective Subjective: Patient seen and examined. No acute events over night. 500cc/24 hr NGT drainage. Patient reports abdominal pain has improved. Admits to having flatus. Denies BM. Objective - Vital Signs/Intake and Output Vital Signs (last 24 hours): Temp Pulse Resp BP Pulse Ox 98.9 F 90 20 99/61 L 99 12/20/17 07:43 12/20/17 07:43 12/20/17 07:43 12/20/17 07:43 12/20/17 07:43 Intake and Output: 12/20/17 12/20/17 06:59 18:59 Intake Total 850 800 Output Total 800 800 Balance 50 0 - Medications Medications: Current Medications Acetaminophen (Tylenol 650mg/20.3ml Solution Ud) 650 mg NG Q6H PRN PRN Reason: Fever >100.4 F Benzocaine/Menthol (Cepacol Sore Throat) 1 marilia MT Q2H PRN PRN Reason: Sore Throat Last Admin: 12/20/17 04:40 Dose: 1 marilia Enoxaparin Sodium (Lovenox) 40 mg SC DAILY [facility] Last Admin: 12/19/17 13:14 Dose: 40 mg Metronidazole (Flagyl) 500 mg in 100 mls @ 100 mls/hr IVPB Q8H [facility] PRN Reason: Protocol Last Admin: 12/20/17 02:30 Dose: 100 mls/hr Lactated Ringer's (Lactated Ringer's) 1,000 mls @ 100 mls/hr IV .Q10H [facility] Last Admin: 12/20/17 08:15 Dose: Not Given Meropenem 1 gm/ Sodium (Chloride) 100 mls @ 100 mls/hr IVPB Q8H [facility] PRN Reason: Protocol Last Admin: 12/20/17 04:35 Dose: 100 mls/hr Ketorolac Tromethamine (Toradol) 30 mg IVP Q6 PRN PRN Reason: Pain, moderate (4-7) Last Admin: 12/19/17 20:02 Dose: 30 mg - Labs Labs: 12/19/17 07:00 12/19/17 07:00 - Constitutional Appears: No Acute Distress - Head Exam Head Exam: NORMOCEPHALIC - Eye Exam Eye Exam: EOMI, Normal appearance - ENT Exam ENT Exam: Mucous Membranes Moist - Respiratory Exam Respiratory Exam: NORMAL BREATHING PATTERN - Cardiovascular Exam Cardiovascular Exam: +S1, +S2 - GI/Abdominal Exam GI & Abdominal Exam: Soft. absent: Distended, Firm, Guarding, Rigid, Tenderness - Neurological Exam Neurological Exam: Alert, Awake, Oriented x3 - Psychiatric Exam Psychiatric exam: Normal Mood - Skin Skin Exam: Dry, Intact, Warm Assessment and Plan - Assessment and Plan (Free Text) Assessment: 37yo F with SBO Plan: NGT clamp trial ABx per ID F/u AM labs Medical management per primary Encourage ambulation DVT ppx Further recs per Dr. Chula Cesar PGY3
[2017-12-20] MEDS: Enoxaparin 40 mg Syringe SC SCH ×2 (09:44→09:51)
--- NOTE | 2017-12-20 21:54 | CP.PCM.CON ---
History of Present Illness - History of Present Illness History of Present Illness: dictated Past Patient History - Past Medical History & Family History Past Medical History?: Yes - Past Social History Smoking Status: Light Smoker < 10 Cigarettes Daily - CARDIAC Hx Hypertension: Yes - PULMONARY Hx Tuberculosis: No - NEUROLOGICAL Hx Seizures: No - HEMATOLOGICAL/ONCOLOGICAL Hx Human Immunodeficiency Virus (HIV): No - MUSCULOSKELETAL/RHEUMATOLOGICAL Hx Falls: No - GASTROINTESTINAL Other/Comment: perforated doudenem,perforated viscous - GENITOURINARY/GYNECOLOGICAL Hx Sexually Transmitted Disorders: No - PSYCHIATRIC Hx Anxiety: Yes Hx Depression: Yes Hx Substance Use: No - SURGICAL HISTORY Hx Surgeries: Yes Hx Herniorrhaphy: Yes Other/Comment: Abdominal Ulcer repair 11/17/2017. partial gastrectomy, gastrojejunostomy,omental patch - ANESTHESIA Hx Anesthesia: Yes Hx Anesthesia Reactions: No Meds Allergies/Adverse Reactions: Allergies Allergy/AdvReac Type Severity Reaction Status Date / Time No Known Allergies Allergy Verified 11/18/17 02:43 - Medications Medications: Current Medications Acetaminophen (Tylenol 650mg/20.3ml Solution Ud) 650 mg NG Q6H PRN PRN Reason: Fever >100.4 F Benzocaine/Menthol (Cepacol Sore Throat) 1 marilia MT Q2H PRN PRN Reason: Sore Throat Last Admin: 12/20/17 04:40 Dose: 1 marilia Enoxaparin Sodium (Lovenox) 40 mg SC DAILY [facility] Last Admin: 12/20/17 09:51 Dose: Not Given Metronidazole (Flagyl) 500 mg in 100 mls @ 100 mls/hr IVPB Q8H [facility] PRN Reason: Protocol Last Admin: 12/20/17 19:21 Dose: 100 mls/hr Lactated Ringer's (Lactated Ringer's) 1,000 mls @ 100 mls/hr IV .Q10H [facility] Last Admin: 12/20/17 17:32 Dose: 100 mls/hr Meropenem 1 gm/ Sodium (Chloride) 100 mls @ 100 mls/hr IVPB Q8H [facility] PRN Reason: Protocol Last Admin: 12/20/17 21:42 Dose: 100 mls/hr Ketorolac Tromethamine (Toradol) 30 mg IVP Q6 PRN PRN Reason: Pain, moderate (4-7) Last Admin: 12/20/17 19:29 Dose: 30 mg Results - Vital Signs Recent Vital Signs: Last Vital Signs Temp 98.2 F 12/20/17 16:38 Pulse 78 12/20/17 16:38 Resp 20 12/20/17 16:38 BP 105/68 12/20/17 16:38 Pulse Ox 100 12/20/17 16:38 - Labs Result Diagrams: 12/19/17 07:00 12/19/17 07:00
--- NOTE | 2017-12-20 23:47 | CP.PCM.PN ---
Subjective - Date & Time of Evaluation Date of Evaluation: 12/20/17 Time of Evaluation: 08:10 Objective - Vital Signs/Intake and Output Vital Signs (last 24 hours): Temp Pulse Resp BP Pulse Ox 98.5 F 91 H 20 99/67 L 98 12/20/17 23:25 12/20/17 23:25 12/20/17 23:25 12/20/17 23:25 12/20/17 23:25 Intake and Output: 12/20/17 12/21/17 18:59 06:59 Intake Total 1960 800 Output Total 800 Balance 1160 800 - Medications Medications: Current Medications Acetaminophen (Tylenol 650mg/20.3ml Solution Ud) 650 mg NG Q6H PRN PRN Reason: Fever >100.4 F Benzocaine/Menthol (Cepacol Sore Throat) 1 marilia MT Q2H PRN PRN Reason: Sore Throat Last Admin: 12/20/17 04:40 Dose: 1 marilia Enoxaparin Sodium (Lovenox) 40 mg SC DAILY [facility] Last Admin: 12/20/17 09:51 Dose: Not Given Metronidazole (Flagyl) 500 mg in 100 mls @ 100 mls/hr IVPB Q8H [facility] PRN Reason: Protocol Last Admin: 12/20/17 19:21 Dose: 100 mls/hr Lactated Ringer's (Lactated Ringer's) 1,000 mls @ 100 mls/hr IV .Q10H [facility] Last Admin: 12/20/17 17:32 Dose: 100 mls/hr Meropenem 1 gm/ Sodium (Chloride) 100 mls @ 100 mls/hr IVPB Q8H [facility] PRN Reason: Protocol Last Admin: 12/20/17 21:42 Dose: 100 mls/hr Ketorolac Tromethamine (Toradol) 30 mg IVP Q6 PRN PRN Reason: Pain, moderate (4-7) Last Admin: 12/20/17 19:29 Dose: 30 mg - Labs Labs: 12/19/17 07:00 12/19/17 07:00
[2017-12-21] MEDS: Lactated Ringer's 1,000 ML IV SCH ×3 (02:54→18:19)
[2017-12-21] MEDS: metroNIDAZOLE IV 500 mg/100 ml 500 MG/100 ML BAG IVPB SCH ×3 (02:54→20:06)
[2017-12-21] MEDS: Meropenem 1 GM in Sodium Chloride 0.9% 100 ML IVPB SCH ×3 (05:01→21:30)
--- NOTE | 2017-12-21 08:16 | CP.PCM.PN ---
Subjective - Date & Time of Evaluation Date of Evaluation: 12/21/17 Time of Evaluation: 08:14 - Subjective Subjective: General surgery progress note for Dr. Quiros-Ashly Perdue, PGY-2 Pt S & E at bedside at 0710 Pt reports BM x 2 yesterday, had another one overnight. Ab pain much improved. Tolerating liquid diet. Denies N & V, F & C. No acute events overnight. Objective - Vital Signs/Intake and Output Vital Signs (last 24 hours): Temp Pulse Resp BP Pulse Ox 98.5 F 91 H 20 99/67 L 98 12/20/17 23:25 12/20/17 23:25 12/20/17 23:25 12/20/17 23:25 12/20/17 23:25 Intake and Output: 12/21/17 12/21/17 06:59 18:59 Intake Total 1780 Balance 1780 - Medications Medications: Current Medications Acetaminophen (Tylenol 650mg/20.3ml Solution Ud) 650 mg NG Q6H PRN PRN Reason: Fever >100.4 F Benzocaine/Menthol (Cepacol Sore Throat) 1 marilia MT Q2H PRN PRN Reason: Sore Throat Last Admin: 12/20/17 04:40 Dose: 1 marilia Enoxaparin Sodium (Lovenox) 40 mg SC DAILY [facility] Last Admin: 12/20/17 09:51 Dose: Not Given Metronidazole (Flagyl) 500 mg in 100 mls @ 100 mls/hr IVPB Q8H [facility] PRN Reason: Protocol Last Admin: 12/21/17 02:54 Dose: 100 mls/hr Lactated Ringer's (Lactated Ringer's) 1,000 mls @ 100 mls/hr IV .Q10H [facility] Last Admin: 12/21/17 02:54 Dose: 100 mls/hr Meropenem 1 gm/ Sodium (Chloride) 100 mls @ 100 mls/hr IVPB Q8H [facility] PRN Reason: Protocol Last Admin: 12/21/17 05:01 Dose: 100 mls/hr Ketorolac Tromethamine (Toradol) 30 mg IVP Q6 PRN PRN Reason: Pain, moderate (4-7) Last Admin: 12/21/17 03:01 Dose: 30 mg - Labs Labs: 12/19/17 07:00 08/31/18 07:00 - Constitutional Appears: Non-toxic, No Acute Distress - Head Exam Head Exam: ATRAUMATIC, NORMAL INSPECTION, NORMOCEPHALIC - Eye Exam Eye Exam: EOMI, Normal appearance - ENT Exam ENT Exam: Mucous Membranes Moist, Normal Exam - Neck Exam Neck Exam: Full ROM, Normal Inspection - Respiratory Exam Respiratory Exam: NORMAL BREATHING PATTERN - Cardiovascular Exam Cardiovascular Exam: REGULAR RHYTHM, +S1, +S2 - GI/Abdominal Exam GI & Abdominal Exam: Distended (mild), Soft. absent: Firm, Guarding, Tenderness Additional comments: well healed midline incision - Extremities Exam Extremities Exam: Normal Inspection - Neurological Exam Neurological Exam: Alert, Awake, CN II-XII Intact, Oriented x3 - Psychiatric Exam Psychiatric exam: Normal Affect, Normal Mood - Skin Skin Exam: Dry, Intact, Normal Color, Warm Additional comments: well healed midline abdominal incision Assessment and Plan - Assessment and Plan (Free Text) Assessment: 37F w/SBO Plan: Cont IV Abx as per ID Cont FLD Pain control PRN OOBTC Ambulate DVT ppx Will DW Dr. Chula Perdue, PGY-2
[2017-12-21 08:32] LABS: BASO % 0.1 % (0.0-2.0); EOS # 0.1 K/uL (0.0-0.7); HEMOGLOBIN 9.5 g/dL (11.0-16.0); LYMPH % 9.7 % (20.0-40.0); MEAN CELL VOLUME 74.3 fL (81.0-99.0); MEAN CORPUSCULAR HEMOGLOBIN 23.6 pg (27.0-31.0); MEAN CORPUSCULAR HGB CONC 31.7 g/dL (33.0-37.0); MEAN PLATELET VOLUME 8.8 fL (7.2-11.7); MONO # 1.5 K/uL (0.0-0.8); MONO % 13.9 % (0.0-10.0); NEUT # 7.9 K/uL (1.8-7.0); NEUT % 75.3 % (50.0-75.0); PLATELET COUNT 373 K/uL (130-400); RBC 4.02 Mil/uL (3.80-5.20); RED CELL DISTRIBUTION WIDTH 16.5 % (11.5-14.5)
[2017-12-21 08:35] LABS: WHITE BLOOD COUNT 10.5 K/uL (4.8-10.8)
[2017-12-21 08:51] LABS: ALBUMIN 3.9 g/dL (3.5-5.0); ALT/SGPT 8 U/L (9-52); AST/SGOT 16 U/L (14-36); BLOOD UREA NITROGEN 28 mg/dL (7-17); CALCIUM 9.9 mg/dl (8.6-10.4); GFR NON-AFRICAN AMERICAN > 60
[2017-12-21] MEDS: Enoxaparin 40 mg Syringe SC SCH (09:15)
[2017-12-21 09:35] LABS: LYMPHOCYTE 11 % (20-40); MONOCYTE 12 % (0-10); TOTAL CELLS COUNTED 100
[2017-12-21 09:40] LABS: BANDS 17 % (0-2); NEUTROPHIL 60 % (50-75)
[2017-12-21 09:42] LABS: ANISOCYTOSIS SLIGHT; PLATELET ESTIMATE NORMAL (NORMAL)
[2017-12-21 09:43] LABS: HYPOCHROMIC SLIGHT; LARGE PLATELETS PRESENT; MICROCYTOSIS SLIGHT; OVALOCYTES SLIGHT; POIKILOCYTOSIS SLIGHT; POLYCHROMIC SLIGHT; SCHISTOCYTES SLIGHT; SPHEROCYTES SLIGHT
[2017-12-21 11:50] LABS: ERYTHROCYTE SEDIMENTATION RATE 51 mm/hr (0-20)
--- NOTE | 2017-12-21 12:44 | CP.PCM.PN ---
Subjective - Date & Time of Evaluation Date of Evaluation: 12/21/17 Time of Evaluation: 07:30 - Subjective Subjective: clinically same Objective - Vital Signs/Intake and Output Vital Signs (last 24 hours): Temp Pulse Resp BP Pulse Ox 98.8 F 90 20 111/71 100 12/21/17 08:16 12/21/17 08:16 12/21/17 08:16 12/21/17 08:16 12/21/17 08:16 Intake and Output: 12/21/17 12/21/17 06:59 18:59 Intake Total 1780 Balance 1780 - Medications Medications: Current Medications Acetaminophen (Tylenol 650mg/20.3ml Solution Ud) 650 mg NG Q6H PRN PRN Reason: Fever >100.4 F Benzocaine/Menthol (Cepacol Sore Throat) 1 marilia MT Q2H PRN PRN Reason: Sore Throat Last Admin: 12/20/17 04:40 Dose: 1 marilia Enoxaparin Sodium (Lovenox) 40 mg SC DAILY [facility] Last Admin: 12/21/17 09:15 Dose: 40 mg Metronidazole (Flagyl) 500 mg in 100 mls @ 100 mls/hr IVPB Q8H [facility] PRN Reason: Protocol Last Admin: 12/21/17 11:33 Dose: 100 mls/hr Lactated Ringer's (Lactated Ringer's) 1,000 mls @ 100 mls/hr IV .Q10H [facility] Last Admin: 12/21/17 02:54 Dose: 100 mls/hr Meropenem 1 gm/ Sodium (Chloride) 100 mls @ 100 mls/hr IVPB Q8H [facility] PRN Reason: Protocol Last Admin: 12/21/17 05:01 Dose: 100 mls/hr Ketorolac Tromethamine (Toradol) 30 mg IVP Q6 PRN PRN Reason: Pain, moderate (4-7) Last Admin: 12/21/17 09:49 Dose: 30 mg - Labs Labs: 12/21/17 08:18 12/21/17 08:18 - Constitutional Appears: Well - Head Exam Head Exam: ATRAUMATIC, NORMAL INSPECTION, NORMOCEPHALIC - Eye Exam Eye Exam: EOMI, Normal appearance, PERRL Pupil Exam: NORMAL ACCOMODATION, PERRL - ENT Exam ENT Exam: Mucous Membranes Moist, Normal Exam - Neck Exam Neck Exam: Full ROM, Normal Inspection. absent: Lymphadenopathy - Respiratory Exam Respiratory Exam: Decreased Breath Sounds - Cardiovascular Exam Cardiovascular Exam: REGULAR RHYTHM, +S1, +S2 - GI/Abdominal Exam GI & Abdominal Exam: Soft, Diminished Bowel Sounds - Rectal Exam Rectal Exam: Deferred
--- NOTE | 2017-12-21 20:51 | CON ---
Copied To: Josue Fermin MD Attending MD: Josue Fermin MD DATE: 12/20/2017 HISTORY OF PRESENT ILLNESS: This is Dr. Nidhi Zheng's patient, 37-year-old female. She came in with abdominal discomfort and was having epigastric pain, it was mostly left sided for two days. She was here before for a perforated viscus. She perforated duodenum and then on 10/18/2017, she had a partial gastrectomy and gastrojejunostomy and jejunojejunostomy with an omental patch. The patient now comes in with abdominal discomfort. At that time, she had that procedure done. Two days, she has discomfort and vomiting. She came in on 12/17/2017, and she was with small bowel obstruction. The patient was on conservative management. Today when I went to see her, she said she just had a bowel movement, and she prefers to lie on one side of her body. Mostly, she was lying and she would not want to move even, so she still had abdominal pain which was there, but she had had a bowel movement which was a plus. Came in with vomiting, constipation, epigastric pain, left-sided pain, and left lower quadrant pain. She is not allergic to any medicine. PAST MEDICAL HISTORY: Significant for anxiety, depression, hypertension. She has no history of diabetes. No HIV disease. She had a history of gastrectomy and other procedures done. She also suffers from depression. PAST SURGICAL HISTORY: Significant for umbilical hernia repair, exploratory laparotomy for perforated viscus and partial gastrectomy with Eulalio-en-Y gastrojejunostomy and jejunojejunostomy anastomosis. SOCIAL HISTORY: She smokes three cigarettes a day. Occasional EtOH abuse but none since her surgery in 09/2017 when she got the omental patch. Denies any drugs tested but at that time, she was having cannabis in 09/2017. ALLERGIES: SHE IS NOT ALLERGIC TO ANY MEDICINE. Past medical history is significant for smoking, light smoker. Denies alcohol abuse. Denies drugs now. Cardiac history is significant for hypertension. Pulmonary, no TB. Neurological, no seizures. Hematological, she has no HIV disease. She has no history of falls. She has no sexually transmitted diseases. Psych, she has anxiety. She does have depression. She has no substance abuse. She denies it. Surgical history of previous surgery as dictated above. She also had an abdominal ulcer repair on 11/17/2017. She has had anesthesia. REVIEW OF SYSTEMS: She denies any headache. Denies ear, nose, or throat problems. She has been n.p.o. Denies any neck pain. No chest pain. No shortness of breath. Does have abdominal pain and came in with nausea and vomiting and is feeling slightly better today. MEDICATIONS: We had given her since she has severe bandemia. Yesterday, we changed the medication to meropenem and give meropenem 1 g every 8 hours. She is on Lactated Ringer's. She is on Toradol, Lovenox. For benzocaine/menthol, she is on Cepacol. She is on Tylenol now. PHYSICAL EXAMINATION: VITAL SIGNS: Temperature is 98.2; pulse 78; blood pressure is 105/68, before it was 99/61; respirations are 20. GENERAL: She is thin-built black female. HEENT: Head is atraumatic and normocephalic. Pupils are reacting to light. No icterus present. No pallor present. NECK: Supple. JVP is flat. LUNGS: Clear. No crackles or rales present. Has no use of accessory muscles. HEART: S1, S2 are regular. No murmurs appreciated. ABDOMEN: Soft. Still has some tenderness present. No guarding. No rebound. Bowel sounds are not heard much. EXTREMITIES: Have no edema or tenderness. No CVA tenderness present. LABORATORY DATA: Labs are noted. Labs show white count is 6.8, hemoglobin 8.7, hematocrit 27.1, platelet count is 217. She has 26 bands. This was yesterday. I do not see any repeat of blood tests done, so will repeat it tomorrow. BUN is 32, creatinine 0.9. LFTs were unremarkable except for AST is 41. ASSESSMENT AND PLAN: Abdominal CT showed severe small bowel obstruction with apparent swelling of the mesentery in the right lower quadrant which appears to be twisting of loop of bowel possibly distal ileum, prominent amount of abdominal pelvic ascites, likely related to the acute process, possibly bowel or vascular compromise. Urgent surgical consultation is advised, so there was surgery on the case. At this time, we will continue present treatment and will follow. Once she starts to eat and she feels better, probably we will discontinue the antibiotics. There are no micro cultures. She has severe small bowel obstruction and has previous recent surgery and is anemic and is nothing by mouth. We started Merrem. Has severe bandemia. It is unclear. If she is improving with such bandemia, need to repeat the labs. Josue Fermin MD
--- NOTE | 2017-12-21 21:14 | CP.PCM.PN ---
Subjective - Date & Time of Evaluation Date of Evaluation: 12/21/17 Time of Evaluation: 12:30 - Subjective Subjective: dictated Objective - Vital Signs/Intake and Output Vital Signs (last 24 hours): Temp Pulse Resp BP Pulse Ox 98.8 F 91 H 20 101/75 100 12/21/17 16:00 12/21/17 16:00 12/21/17 16:00 12/21/17 16:00 12/21/17 16:00 Intake and Output: 12/21/17 12/22/17 18:59 06:59 Intake Total 1400 Balance 1400 - Medications Medications: Current Medications Acetaminophen (Tylenol 650mg/20.3ml Solution Ud) 650 mg NG Q6H PRN PRN Reason: Fever >100.4 F Benzocaine/Menthol (Cepacol Sore Throat) 1 marilia MT Q2H PRN PRN Reason: Sore Throat Last Admin: 12/20/17 04:40 Dose: 1 marilia Enoxaparin Sodium (Lovenox) 40 mg SC DAILY [facility] Last Admin: 12/21/17 09:15 Dose: 40 mg Metronidazole (Flagyl) 500 mg in 100 mls @ 100 mls/hr IVPB Q8H [facility] PRN Reason: Protocol Last Admin: 12/21/17 20:06 Dose: 100 mls/hr Lactated Ringer's (Lactated Ringer's) 1,000 mls @ 100 mls/hr IV .Q10H [facility] Last Admin: 12/21/17 18:19 Dose: 100 mls/hr Meropenem 1 gm/ Sodium (Chloride) 100 mls @ 100 mls/hr IVPB Q8H [facility] PRN Reason: Protocol Last Admin: 12/21/17 13:25 Dose: 100 mls/hr Ketorolac Tromethamine (Toradol) 30 mg IVP Q6 PRN PRN Reason: Pain, moderate (4-7) Last Admin: 12/21/17 18:34 Dose: 30 mg Ondansetron HCl (Zofran Inj) 4 mg IVP Q6H PRN PRN Reason: Nausea/Vomiting Last Admin: 12/21/17 18:33 Dose: 4 mg - Labs Labs: 12/21/17 08:18 12/21/17 08:18
--- NOTE | 2017-12-22 00:34 | PN ---
Copied To: Josue Fermin MD Attending MD: Josue Fermin MD DATE: 12/21/2017 SUBJECTIVE: The patient was seen today. She reported that she is improving. As her diet was advanced, she had no nausea and vomiting. She was feeling better and head was atraumatic, normocephalic. PHYSICAL EXAMINATION: VITAL SIGNS: T-max is 98.8, pulse 91, blood pressure 101/75, respirations are 20 at this time when I am dictating, I saw her this morning. HEENT: Head is atraumatic. NECK: Supple. LUNGS: Clear. HEART: S1, S2 are regular. ABDOMEN: Soft, nontender. No guarding, no rigidity present. Abdomen was nontender but remained distended. EXTREMITIES: Have no edema. LABORATORY DATA: Labs are noted. Labs show white count is 10.5 today, hemoglobin 9.5, hematocrit 29.9. She still has lot of bands in it. Sodium is 137, potassium is 3.6, chlorides are 96, CO2 is 25, BUN is 28, creatinine 0.8. Micro mendoza, she has no cultures. ASSESSMENT AND PLAN: She remains with severe bandemia still, so I left her on meropenem and Flagyl, but it is saying that she is improving if she is having bowel movements and she is able to take orally. We will follow with the surgical team. Josue Fermin MD
[2017-12-22] MEDS: metroNIDAZOLE IV 500 mg/100 ml 500 MG/100 ML BAG IVPB SCH ×3 (02:55→18:36)
[2017-12-22] MEDS: Lactated Ringer's 1,000 ML IV SCH ×4 (02:56→23:20)
[2017-12-22] MEDS: Meropenem 1 GM in Sodium Chloride 0.9% 100 ML IVPB SCH ×3 (04:06→19:59)
--- NOTE | 2017-12-22 08:22 | CP.PCM.PN ---
Subjective - Date & Time of Evaluation Date of Evaluation: 12/22/17 Time of Evaluation: 08:21 - Subjective Subjective: General surgery progress note for Dr. Crystal Perdue, PGY-2 Pt S & E at bedside 0730 Pt reports BMs, flatus, ab pain resolved. Denies N & V, F & C. Tolerating fulls. Objective - Vital Signs/Intake and Output Vital Signs (last 24 hours): Temp Pulse Resp BP Pulse Ox 98.1 F 78 20 99/64 L 100 12/22/17 08:03 12/22/17 08:03 12/22/17 08:03 12/22/17 08:03 12/22/17 08:03 Intake and Output: 12/22/17 12/22/17 06:59 18:59 Intake Total 1890 Balance 1890 - Medications Medications: Current Medications Acetaminophen (Tylenol 650mg/20.3ml Solution Ud) 650 mg NG Q6H PRN PRN Reason: Fever >100.4 F Benzocaine/Menthol (Cepacol Sore Throat) 1 marilia MT Q2H PRN PRN Reason: Sore Throat Last Admin: 12/20/17 04:40 Dose: 1 marilia Enoxaparin Sodium (Lovenox) 40 mg SC DAILY [facility] Last Admin: 12/21/17 09:15 Dose: 40 mg Metronidazole (Flagyl) 500 mg in 100 mls @ 100 mls/hr IVPB Q8H [facility] PRN Reason: Protocol Last Admin: 12/22/17 02:55 Dose: 100 mls/hr Lactated Ringer's (Lactated Ringer's) 1,000 mls @ 100 mls/hr IV .Q10H [facility] Last Admin: 12/22/17 02:56 Dose: Not Given Meropenem 1 gm/ Sodium (Chloride) 100 mls @ 100 mls/hr IVPB Q8H [facility] PRN Reason: Protocol Last Admin: 12/22/17 04:06 Dose: 100 mls/hr Ketorolac Tromethamine (Toradol) 30 mg IVP Q6 PRN PRN Reason: Pain, moderate (4-7) Last Admin: 12/22/17 06:43 Dose: 30 mg Ondansetron HCl (Zofran Inj) 4 mg IVP Q6H PRN PRN Reason: Nausea/Vomiting Last Admin: 12/21/17 18:33 Dose: 4 mg - Labs Labs: 12/21/17 08:18 12/21/17 08:18 - Constitutional Appears: Non-toxic, No Acute Distress - Head Exam Head Exam: ATRAUMATIC, NORMAL INSPECTION, NORMOCEPHALIC - Eye Exam Eye Exam: EOMI, Normal appearance - ENT Exam ENT Exam: Mucous Membranes Moist, Normal Exam - Neck Exam Neck Exam: Full ROM, Normal Inspection - Respiratory Exam Respiratory Exam: NORMAL BREATHING PATTERN - Cardiovascular Exam Cardiovascular Exam: REGULAR RHYTHM, +S1, +S2 - GI/Abdominal Exam GI & Abdominal Exam: Soft. absent: Distended, Firm, Guarding, Rigid, Tenderness , Rebound Additional comments: well healed midline incision - Extremities Exam Extremities Exam: Normal Inspection - Neurological Exam Neurological Exam: Alert, Awake, CN II-XII Intact, Oriented x3 - Psychiatric Exam Psychiatric exam: Normal Affect, Normal Mood - Skin Skin Exam: Dry, Intact, Normal Color, Warm Assessment and Plan - Assessment and Plan (Free Text) Assessment: 37F w/SBO-resolved Plan: Ok for soft diet Cont IV Abx as per ID OOBTC Ambulate DVT ppx Further mgmt as per primary team No surgical intervention at this time Please re-consult as needed ALO Perdue, PGY-2
[2017-12-22] MEDS: Enoxaparin 40 mg Syringe SC SCH (10:18)
[2017-12-22 15:27] VITALS: O2SAT 100
--- NOTE | 2017-12-22 15:35 | CP.PCM.PN ---
Subjective - Date & Time of Evaluation Date of Evaluation: 12/22/17 Time of Evaluation: 07:30 - Subjective Subjective: clinically same Objective - Vital Signs/Intake and Output Vital Signs (last 24 hours): Temp Pulse Resp BP Pulse Ox 98.0 F 75 20 105/64 100 12/22/17 15:30 12/22/17 15:30 12/22/17 15:30 12/22/17 15:30 12/22/17 15:30 Intake and Output: 12/22/17 12/22/17 06:59 18:59 Intake Total 1890 Balance 1890 - Medications Medications: Current Medications Acetaminophen (Tylenol 650mg/20.3ml Solution Ud) 650 mg NG Q6H PRN PRN Reason: Fever >100.4 F Benzocaine/Menthol (Cepacol Sore Throat) 1 marilia MT Q2H PRN PRN Reason: Sore Throat Last Admin: 12/20/17 04:40 Dose: 1 marilia Enoxaparin Sodium (Lovenox) 40 mg SC DAILY [facility] Last Admin: 12/22/17 10:18 Dose: 40 mg Metronidazole (Flagyl) 500 mg in 100 mls @ 100 mls/hr IVPB Q8H [facility] PRN Reason: Protocol Last Admin: 12/22/17 11:42 Dose: 100 mls/hr Lactated Ringer's (Lactated Ringer's) 1,000 mls @ 100 mls/hr IV .Q10H [facility] Last Admin: 12/22/17 09:15 Dose: 100 mls/hr Meropenem 1 gm/ Sodium (Chloride) 100 mls @ 100 mls/hr IVPB Q8H [facility] PRN Reason: Protocol Last Admin: 12/22/17 13:42 Dose: 100 mls/hr Ketorolac Tromethamine (Toradol) 30 mg IVP Q6 PRN PRN Reason: Pain, moderate (4-7) Last Admin: 12/22/17 13:57 Dose: 30 mg Ondansetron HCl (Zofran Inj) 4 mg IVP Q6H PRN PRN Reason: Nausea/Vomiting Last Admin: 12/21/17 18:33 Dose: 4 mg - Labs Labs: 12/21/17 08:18 12/21/17 08:18 - Constitutional Appears: Well - Head Exam Head Exam: ATRAUMATIC, NORMAL INSPECTION, NORMOCEPHALIC - Eye Exam Eye Exam: EOMI, Normal appearance, PERRL Pupil Exam: NORMAL ACCOMODATION, PERRL - ENT Exam ENT Exam: Mucous Membranes Moist, Normal Exam - Neck Exam Neck Exam: Full ROM, Normal Inspection. absent: Lymphadenopathy - Respiratory Exam Respiratory Exam: Decreased Breath Sounds - Cardiovascular Exam Cardiovascular Exam: REGULAR RHYTHM, +S1, +S2 - GI/Abdominal Exam GI & Abdominal Exam: Soft, Diminished Bowel Sounds - Rectal Exam Rectal Exam: Deferred
--- NOTE | 2017-12-22 19:30 | CP.PCM.PN ---
Subjective - Date & Time of Evaluation Date of Evaluation: 12/22/17 Time of Evaluation: 16:00 - Subjective Subjective: dictated Objective - Vital Signs/Intake and Output Vital Signs (last 24 hours): Temp Pulse Resp BP Pulse Ox 98.0 F 75 20 105/64 100 12/22/17 15:30 12/22/17 15:30 12/22/17 15:30 12/22/17 15:30 12/22/17 15:30 Intake and Output: 12/22/17 12/23/17 18:59 06:59 Intake Total 1150 Balance 1150 - Medications Medications: Current Medications Acetaminophen (Tylenol 650mg/20.3ml Solution Ud) 650 mg NG Q6H PRN PRN Reason: Fever >100.4 F Benzocaine/Menthol (Cepacol Sore Throat) 1 marilia MT Q2H PRN PRN Reason: Sore Throat Last Admin: 12/20/17 04:40 Dose: 1 marilia Enoxaparin Sodium (Lovenox) 40 mg SC DAILY [facility] Last Admin: 12/22/17 10:18 Dose: 40 mg Metronidazole (Flagyl) 500 mg in 100 mls @ 100 mls/hr IVPB Q8H [facility] PRN Reason: Protocol Last Admin: 12/22/17 18:36 Dose: 100 mls/hr Lactated Ringer's (Lactated Ringer's) 1,000 mls @ 100 mls/hr IV .Q10H [facility] Last Admin: 12/22/17 18:36 Dose: Not Given Meropenem 1 gm/ Sodium (Chloride) 100 mls @ 100 mls/hr IVPB Q8H [facility] PRN Reason: Protocol Last Admin: 12/22/17 13:42 Dose: 100 mls/hr Ketorolac Tromethamine (Toradol) 30 mg IVP Q6 PRN PRN Reason: Pain, moderate (4-7) Last Admin: 12/22/17 13:57 Dose: 30 mg Ondansetron HCl (Zofran Inj) 4 mg IVP Q6H PRN PRN Reason: Nausea/Vomiting Last Admin: 12/21/17 18:33 Dose: 4 mg - Labs Labs: 12/21/17 08:18 12/21/17 08:18
--- NOTE | 2017-12-22 23:15 | PN ---
Copied To: Josue Fermin MD Attending MD: Josue Fermin MD DATE: 12/22/2017 SUBJECTIVE: The patient was seen today. She says she has been eating better and she had bowel movement. She says she was told she would be going home and is waiting for Surgery to say that she is okay. Denies any nausea, vomiting, or any diarrhea. She did have flatus and was tolerating full liquid diet. PHYSICAL EXAMINATION: VITAL SIGNS: T-max is 98.1 today, 98 now, pulse 75, blood pressure 105/64, respirations are 20. GENERAL: She is a thin, cachectic, black female. HEENT: Head is atraumatic. NECK: Supple. LUNGS: Clear. HEART: S1, S2 are regular. ABDOMEN: Soft, nontender. No guarding, no rigidity present. It still shows some fullness. EXTREMITIES: Have no edema. LABORATORY DATA: Labs are noted. White count is 10.5, hemoglobin 9.5, hematocrit 29.9, platelet count is 373. She still had bands of 17, and ESR 51. Hence I have left the meropenem and Flagyl on. We will follow with the Surgical Team as she came with obstruction. Her chest x-ray, there is nothing new. We will follow labs tomorrow and we will continue present antibiotics at this time. Josue Fermin MD
[2017-12-23] MEDS: metroNIDAZOLE IV 500 mg/100 ml 500 MG/100 ML BAG IVPB SCH (03:05)
[2017-12-23] MEDS: Meropenem 1 GM in Sodium Chloride 0.9% 100 ML IVPB SCH (04:23)
[2017-12-23] MEDS: Lactated Ringer's 1,000 ML IV SCH (06:13)
[2017-12-23 08:40] LABS: BASO % 0.4 % (0.0-2.0); EOS # 0.1 K/uL (0.0-0.7); HEMOGLOBIN 9.5 g/dL (11.0-16.0); LYMPH # 1.3 K/uL (1.0-4.3); LYMPH % 18.7 % (20.0-40.0); MEAN CELL VOLUME 72.7 fL (81.0-99.0); MEAN CORPUSCULAR HGB CONC 31.7 g/dL (33.0-37.0); MEAN PLATELET VOLUME 8.3 fL (7.2-11.7); MONO % 14.9 % (0.0-10.0); NEUT # 4.5 K/uL (1.8-7.0); RBC 4.12 Mil/uL (3.80-5.20); RED CELL DISTRIBUTION WIDTH 16.7 % (11.5-14.5)
[2017-12-23] MEDS: Enoxaparin 40 mg Syringe SC SCH ×2 (09:26→10:23)
--- NOTE | 2017-12-23 09:39 | CP.PCM.PN ---
Subjective - Date & Time of Evaluation Date of Evaluation: 12/23/17 Time of Evaluation: 08:00 - Subjective Subjective: PGY-2 Med Note- Dr. Nidhi Zheng's service Patient was seen and examined at bedside in the AM. Patient states she has slight abdominal pain but otherwise she is feeling much better. She states she had a bowel movement yesterday and today. She has also been tolerating her food. Patient denies chest pain, shortness of breath, nausea, vomiting, fever or chills. Objective - Vital Signs/Intake and Output Vital Signs (last 24 hours): Temp Pulse Resp BP Pulse Ox 98.5 F 88 20 101/70 100 12/23/17 08:00 12/23/17 08:00 12/23/17 08:00 12/23/17 08:00 12/23/17 08:00 Intake and Output: 12/23/17 12/23/17 06:59 18:59 Intake Total 2080 Balance 2080 - Medications Medications: Current Medications Acetaminophen (Tylenol 650mg/20.3ml Solution Ud) 650 mg NG Q6H PRN PRN Reason: Fever >100.4 F Benzocaine/Menthol (Cepacol Sore Throat) 1 marilia MT Q2H PRN PRN Reason: Sore Throat Last Admin: 12/20/17 04:40 Dose: 1 marilia Enoxaparin Sodium (Lovenox) 40 mg SC DAILY [facility] Last Admin: 12/23/17 09:26 Dose: 40 mg Metronidazole (Flagyl) 500 mg in 100 mls @ 100 mls/hr IVPB Q8H [facility] PRN Reason: Protocol Last Admin: 12/23/17 03:05 Dose: 100 mls/hr Lactated Ringer's (Lactated Ringer's) 1,000 mls @ 100 mls/hr IV .Q10H [facility] Last Admin: 12/23/17 06:13 Dose: Not Given Meropenem 1 gm/ Sodium (Chloride) 100 mls @ 100 mls/hr IVPB Q8H [facility] PRN Reason: Protocol Last Admin: 12/23/17 04:23 Dose: 100 mls/hr Ketorolac Tromethamine (Toradol) 30 mg IVP Q6 PRN PRN Reason: Pain, moderate (4-7) Last Admin: 09/04/18 08:57 Dose: 30 mg Ondansetron HCl (Zofran Inj) 4 mg IVP Q6H PRN PRN Reason: Nausea/Vomiting Last Admin: 12/21/17 18:33 Dose: 4 mg - Labs Labs: 12/23/17 08:33 12/21/17 08:18 - Constitutional Appears: No Acute Distress, Cachectic - Head Exam Head Exam: ATRAUMATIC, NORMAL INSPECTION - Eye Exam Eye Exam: EOMI, Normal appearance - ENT Exam ENT Exam: Mucous Membranes Moist - Respiratory Exam Respiratory Exam: Clear to Ausculation Bilateral, NORMAL BREATHING PATTERN - Cardiovascular Exam Cardiovascular Exam: REGULAR RHYTHM, +S1, +S2 - GI/Abdominal Exam GI & Abdominal Exam: Soft, Normal Bowel Sounds. absent: Tenderness - Extremities Exam Extremities Exam: Normal Inspection - Neurological Exam Neurological Exam: Alert, Awake, Oriented x3 - Psychiatric Exam Psychiatric exam: Normal Affect - Skin Skin Exam: Normal Color Assessment and Plan - Assessment and Plan (Free Text) Assessment: Small Bowel Obstruction reolved - General Surgery Consult: Dr. Quiros --> help appreciated - per surgery - no surgical intervention at this time - Imaging: * CT Abd/Pelvis: Severe small bowel obstruction with apparent swirling of the mesenteric in the right lower quadrant with there appears to be twisting of a loop of bowel, possibly distal ileum. Prominent amount of abdominal pelvic ascites, likely related to the acute process, possibly bowel/vascular compromise. Urgent surgical consultation is advised. * Abdominal xray: Small bowel obstruction - may be incomplete and/or intermittent. - NGT * Chest xray: NG tube extending into the stomach. * NGT was removed - Patient is tolerating diet Bandemia resolved - Bands 26 (12/19/17) - Temp 100.4 - ID Consult: Dr. Fermin --> help appreciated - per Dr. Fermin - discontinue antibiotics - Medications: * Cipro 400mg IV q12h * Metronidazole 500mg IV q8h * Tylenol 650mg NG q6h prn for fever History of Hypertension - Currently normatensive - Continue to monitor History of Anemia - Hgb 8.7/27.1 asymptomatic - Will continue to monitor History of Depression - Home medications on hold: Zoloft 50mg PO dialy and Trazadone 50mg PO HS History of Substance abuse - Cessation advised GI/DVT ppx: - Lovenox 40mg SC daily - SCDs All medical management per Dr. Nancy Burger PGY-2
[2017-12-23 10:40] LABS: ALBUMIN 3.5 g/dL (3.5-5.0); ALT/SGPT 17 U/L (9-52); AST/SGOT 19 U/L (14-36); BLOOD UREA NITROGEN 24 mg/dL (7-17); CALCIUM 9.5 mg/dl (8.6-10.4); GFR NON-AFRICAN AMERICAN > 60
[2017-12-23 11:39] LABS: ALB/GLOB RATIO 1.1 (1.0-2.1); ALBUMIN 3.5 g/dL (3.5-5.0); ALT/SGPT 16 U/L (9-52); AST/SGOT 15 U/L (14-36); BLOOD UREA NITROGEN 23 mg/dL (7-17); CALCIUM 9.5 mg/dl (8.6-10.4); GFR NON-AFRICAN AMERICAN > 60
--- NOTE | 2017-12-23 15:29 | CP.PCM.PN ---
Subjective - Date & Time of Evaluation Date of Evaluation: 12/23/17 Time of Evaluation: 07:15 - Subjective Subjective: clinically same Objective - Vital Signs/Intake and Output Vital Signs (last 24 hours): Temp Pulse Resp BP Pulse Ox 98.5 F 88 20 101/70 100 12/23/17 08:00 12/23/17 08:00 12/23/17 08:00 12/23/17 08:00 12/23/17 08:00 Intake and Output: 12/23/17 12/23/17 06:59 18:59 Intake Total 2080 300 Balance 2080 300 - Medications Medications: Current Medications Acetaminophen (Tylenol 650mg/20.3ml Solution Ud) 650 mg NG Q6H PRN PRN Reason: Fever >100.4 F Benzocaine/Menthol (Cepacol Sore Throat) 1 marilia MT Q2H PRN PRN Reason: Sore Throat Last Admin: 12/20/17 04:40 Dose: 1 marilia Enoxaparin Sodium (Lovenox) 40 mg SC DAILY [facility] Last Admin: 12/23/17 10:23 Dose: Not Given Ketorolac Tromethamine (Toradol) 30 mg IVP Q6 PRN PRN Reason: Pain, moderate (4-7) Last Admin: 12/23/17 15:06 Dose: 30 mg Ondansetron HCl (Zofran Inj) 4 mg IVP Q6H PRN PRN Reason: Nausea/Vomiting Last Admin: 12/21/17 18:33 Dose: 4 mg - Labs Labs: 12/23/17 08:33 12/23/17 11:17 - Constitutional Appears: Well - Head Exam Head Exam: ATRAUMATIC, NORMAL INSPECTION, NORMOCEPHALIC - Eye Exam Eye Exam: EOMI, Normal appearance, PERRL Pupil Exam: NORMAL ACCOMODATION, PERRL - ENT Exam ENT Exam: Mucous Membranes Moist, Normal Exam - Neck Exam Neck Exam: Full ROM, Normal Inspection. absent: Lymphadenopathy - Respiratory Exam Respiratory Exam: Decreased Breath Sounds - Cardiovascular Exam Cardiovascular Exam: REGULAR RHYTHM, +S1, +S2 - GI/Abdominal Exam GI & Abdominal Exam: Soft, Diminished Bowel Sounds - Rectal Exam Rectal Exam: Deferred Assessment and Plan (1) Small bowel obstruction Status: Acute (2) Anemia Status: Acute (3) Anxiety Status: Acute (4) Chest discomfort Status: Acute (5) Drug abuse Status: Acute (6) Encounter for wound care Status: Acute (7) Head trauma Status: Acute (8) Laceration of lip Status: Acute (9) Mandible fracture Status: Acute (10) Perforated abdominal viscus Status: Acute (11) Visit for wound check Status: Acute - Assessment and Plan (Free Text) Plan: Small Bowel Obstruction reolved - General Surgery Consult: Dr. Quiros --> help appreciated - per surgery - no surgical intervention at this time - Imaging: * CT Abd/Pelvis: Severe small bowel obstruction with apparent swirling of the mesenteric in the right lower quadrant with there appears to be twisting of a loop of bowel, possibly distal ileum. Prominent amount of abdominal pelvic ascites, likely related to the acute process, possibly bowel/vascular compromise. Urgent surgical consultation is advised. * Abdominal xray: Small bowel obstruction - may be incomplete and/or intermittent. - NGT * Chest xray: NG tube extending into the stomach. * NGT was removed - Patient is tolerating diet Bandemia resolved - Bands 26 (12/19/17) - Temp 100.4 - ID Consult: Dr. Fermin --> help appreciated - per Dr. Fermin - discontinue antibiotics - Medications: * Cipro 400mg IV q12h * Metronidazole 500mg IV q8h * Tylenol 650mg NG q6h prn for fever History of Hypertension - Currently normatensive - Continue to monitor History of Anemia - Hgb 8.7/27.1 asymptomatic - Will continue to monitor History of Depression - Home medications on hold: Zoloft 50mg PO dialy and Trazadone 50mg PO HS History of Substance abuse - Cessation advised GI/DVT ppx: - Lovenox 40mg SC daily - SCDs
[2017-12-23 15:57] VITALS: BP 105/66; PULSE 66; TEMP 98.3
== END 2017-12-23 19:08 | disposition home or self-care (01) | DRG 180 ==
LOC: C.ER 13:57 → C.9E 18:24 → C.3T 20:57
PROVIDERS: ADMIT Internal Medicine Nephrology; ATTEND Internal Medicine Nephrology
PROC: 0D9670Z Drainage of Stomach with Drainage Device, Via Natural or Artificial Opening (ICD-10-PCS; principal; 2017-12-17)
DX: K56.609 Unspecified intestinal obstruction, unspecified as to partial versus complete obstruction (principal); R18.8 Other ascites; D72.825 Bandemia; I10 Essential (primary) hypertension; D64.9 Anemia, unspecified; F32.9 Major depressive disorder, single episode, unspecified; F41.9 Anxiety disorder, unspecified; F10.11 Alcohol abuse, in remission; F17.210 Nicotine dependence, cigarettes, uncomplicated; Z90.3 Acquired absence of stomach [part of]

== ENCOUNTER 2018-08-03 15:08 | Inpatient (IN) | payer MEDICAID ==
[2018-08-03] MEDS ORDERED: Sodium Chloride 0.9% 1,000 ML IV ONE (16:34)
[2018-08-03] MEDS ORDERED: Morphine 4 MG/ML VIAL IV STA (16:55)
[2018-08-03] MEDS ORDERED: Sodium Chloride 0.9% 1,000 ML ONE (16:56)
[2018-08-03 17:26] LABS: SQUAMOUS EPITHIAL 19 /hpf (0-5); URINE BACTERIA OCC (<OCC)
[2018-08-03 17:33] LABS: BASO % 0.5 % (0.0-2.0); EOS % 0.4 % (0.0-4.0); HEMOGLOBIN 9.8 g/dL (11.0-16.0); LYMPH # 1.3 K/uL (1.0-4.3); LYMPH % 17.6 % (20.0-40.0); MEAN CELL VOLUME 78.6 fL (81.0-99.0); MEAN CORPUSCULAR HEMOGLOBIN 25.8 pg (27.0-31.0); MEAN CORPUSCULAR HGB CONC 32.8 g/dL (33.0-37.0); MEAN PLATELET VOLUME 8.1 fL (7.2-11.7); MONO # 0.8 K/uL (0.0-0.8); MONO % 10.1 % (0.0-10.0); NEUT # 5.3 K/uL (1.8-7.0); NEUT % 71.4 % (50.0-75.0); RBC 3.81 Mil/uL (3.80-5.20); RED CELL DISTRIBUTION WIDTH 18.1 % (11.5-14.5); WHITE BLOOD COUNT 7.4 K/uL (4.8-10.8)
[2018-08-03 17:34] LABS: URINE BILIRUBIN NEGATIVE (NEGATIVE); URINE BLOOD NEGATIVE (NEGATIVE); URINE CLARITY Clear (Clear); URINE COLOR YELLOW (YELLOW); URINE GLUCOSE (UA) NEGATIVE (Normal); URINE PROTEIN NEGATIVE (NEGATIVE); URINE UROBILINOGEN 0.2 mg/dL (0.2-1.0)
[2018-08-03 17:35] LABS: URINE LEUKOCYTE ESTERASE TRACE Leu/uL (Negative)
[2018-08-03 17:37] LABS: HCG,QUALITATIVE URINE NEGATIVE (NEGATIVE)
[2018-08-03 17:39] LABS: ALB/GLOB RATIO 1.2 (1.0-2.1); ALBUMIN 3.7 g/dL (3.5-5.0); ALT/SGPT 15 U/L (9-52); AST/SGOT 19 U/L (14-36); BLOOD UREA NITROGEN 7 mg/dL (7-17); CALCIUM 9.3 mg/dl (8.6-10.4); GFR NON-AFRICAN AMERICAN > 60; LIPASE 31 U/L (23-300)
[2018-08-03] MEDS ORDERED: Iodixanol 320 MG/ML 100 ML BOTTLE IV ONE (19:37)
[2018-08-03] MEDS ORDERED: Piperacillin/Tazobact 3.375 gm 100 ML IVPB STA (23:24)
--- NOTE | 2018-08-03 23:35 | CP.PCM.CON ---
<Daniel Blount - Last Filed: 08/04/18 04:33> History of Present Illness - History of Present Illness History of Present Illness: General Surgery Consult- Dr. Quiros Reason from Consult: ? Intra-abdominal Abscess 38F pmhx significant for exploratory laparotomy for perforated viscous with gastrectomy and RnY presents to the ER with Left lower quadrant pain for the last 2 weeks. Pain worsened over the last 1 day. + Flatus and BM as been small w/ some straining. Admits Jenn-colace helps w/ abdominal pain however does not take medication daily. During ED work up patient underwent a CT scan which showed ? Intra-abdominal abscess, pelvic congestion syndrome w/ left ovarian varacies, moderate constipation. Denies: fevers, chills, nausea, vomiting, bright red blood per rectum. Admits pain sometimes worsens after urination. PMH: Depression, UTI PSH: umbilical hernia repair, exploratory laparotomy for perforated viscus with partial gastrectomy with zoraida en y, gastro-jejunal anastamosis, and jejunojejunal anastamosis (09/2017) ALL: NKDA SocialHx: lives w/ friend. 1/2ppd for > 10 years. + PCP, cannabis before and after surgery. Denies ETOH use Review of Systems - Review of Systems All systems: reviewed and no additional remarkable complaints except - Constitutional Constitutional: As Per HPI Past Patient History - Past Medical History & Family History Past Medical History?: Yes - Past Social History Smoking Status: Light Smoker < 10 Cigarettes Daily - CARDIAC Hx Hypertension: Yes - PULMONARY Hx Tuberculosis: No - NEUROLOGICAL Hx Seizures: No - HEMATOLOGICAL/ONCOLOGICAL Hx Human Immunodeficiency Virus (HIV): No - MUSCULOSKELETAL/RHEUMATOLOGICAL Hx Falls: No - GASTROINTESTINAL Other/Comment: perforated doudenem,perforated viscous - GENITOURINARY/GYNECOLOGICAL Hx Sexually Transmitted Disorders: No - PSYCHIATRIC Hx Anxiety: Yes Hx Depression: Yes Hx Substance Use: No - SURGICAL HISTORY Hx Surgeries: Yes Hx Herniorrhaphy: Yes Other/Comment: Abdominal Ulcer repair 11/17/2017. partial gastrectomy,gastrojej unostomy,omental patch - ANESTHESIA Hx Anesthesia: Yes Hx Anesthesia Reactions: No Meds Allergies/Adverse Reactions: Allergies Allergy/AdvReac Type Severity Reaction Status Date / Time No Known Allergies Allergy Verified 08/03/18 16:24 - Medications Medications: Current Medications Piperacillin Sod/Tazobactam Sod (Zosyn 3.375 In Ns 100ml) 100 mls @ 200 mls/hr IVPB STAT STA; Protocol Stop: 08/03/18 23:53 Physical Exam - Constitutional Appears: Non-toxic, No Acute Distress - Head Exam Head Exam: ATRAUMATIC - Eye Exam Eye Exam: EOMI. absent: Scleral icterus - ENT Exam ENT Exam: Mucous Membranes Moist. absent: Normal Oropharynx Additional comments: Very Poor Dentition - Neck Exam Neck exam: Positive for: Normal Inspection - Respiratory Exam Respiratory Exam: NORMAL BREATHING PATTERN. absent: Accessory Muscle Use, Respiratory Distress - Cardiovascular Exam Cardiovascular Exam: REGULAR RHYTHM. absent: Bradycardia, Tachycardia - GI/Abdominal Exam GI & Abdominal Exam: Soft, Tenderness (tenderness to palpation in LLQ). absent: Distended, Firm, Guarding, Hernia Additional comments: Midline incision healing well - Extremities Exam Extremities exam: Negative for: calf tenderness - Neurological Exam Neurological exam: Alert, Oriented x3 - Psychiatric Exam Psychiatric exam: Normal Affect - Skin Skin Exam: Intact, Warm Results - Vital Signs Recent Vital Signs: Last Vital Signs Temp 98.3 F 08/03/18 21:37 Pulse 83 08/03/18 21:37 Resp 20 08/03/18 21:37 BP 133/82 08/03/18 21:37 Pulse Ox 100 08/03/18 21:37 - Labs Result Diagrams: 08/03/18 17:10 08/03/18 17:10 Labs: Laboratory Results - last 24 hr 08/03/18 08/03/18 08/03/18 17:10 17:10 17:10 WBC 7.4 RBC 3.81 Hgb 9.8 L Hct 29.9 L MCV 78.6 L D MCH 25.8 L MCHC 32.8 L RDW 18.1 H Plt Count 516 H D MPV 8.1 Neut % (Auto) 71.4 Lymph % (Auto) 17.6 L Hunt % (Auto) 10.1 H Eos % (Auto) 0.4 Baso % (Auto) 0.5 Neut # (Auto) 5.3 Lymph # (Auto) 1.3 Hunt # (Auto) 0.8 Eos # (Auto) 0.0 Baso # (Auto) 0.0 Sodium 133 Potassium 3.9 Chloride 97 L Carbon Dioxide 27 Anion Gap 13 BUN 7 Creatinine 0.7 Est GFR ( Amer) > 60 Est GFR (Non-Af Amer) > 60 Random Glucose 93 D Calcium 9.3 Total Bilirubin 0.2 AST 19 ALT 15 Alkaline Phosphatase 102 Total Protein 6.9 Albumin 3.7 Globulin 3.2 Albumin/Globulin Ratio 1.2 Lipase 31 Urine Color Yellow Urine Clarity Clear Urine pH 6.0 Ur Specific Rosalia 1.010 Urine Protein Negative Urine Glucose (UA) Negative Urine Ketones Negative Urine Blood Negative Urine Nitrate Negative Urine Bilirubin Negative Urine Urobilinogen 0.2 Ur Leukocyte Esterase Trace Urine WBC (Auto) 10 H Urine RBC (Auto) 2 Ur Squamous Epith Cells 19 H Urine Bacteria Occ H Urine HCG, Qual Negative Assessment & Plan - Assessment and Plan (Free Text) Assessment: 38F w/ abdominal pain likely due to Pelvic Congestion syndrome, and constipation Plan: - clinically unlikely intra-abdominal abscess - Diet as tolerated - bowel regiment - recommend OBGYN consult - No acute surgical Intervention at this time - d/w Dr. Quiros Surgical attending <Nabil Quiros - Last Filed: 08/09/18 18:33> Meds - Medications Medications: Current Medications Acetaminophen (Tylenol 325mg Tab) 650 mg PO Q4 PRN PRN Reason: Pain, moderate (4-7) Last Admin: 08/06/18 02:17 Dose: 650 mg Docusate Sodium (Colace) 100 mg PO DAILY [facility] Last Admin: 08/09/18 10:04 Dose: 100 mg Oxycodone/Acetaminophen (Percocet 5/325 Mg Tab) 1 tab PO Q6H PRN PRN Reason: Pain, Mild (1-3) Stop: 08/10/18 15:02 Last Admin: 08/09/18 13:05 Dose: 1 tab Pantoprazole Sodium (Protonix Ec Tab) 40 mg PO DAILY [facility] Last Admin: 08/09/18 10:05 Dose: 40 mg Polyethylene Glycol (Miralax) 17 gm PO BID [facility] Last Admin: 08/09/18 17:34 Dose: 17 gm Senna/Docusate Sodium (Senokot S 50 Mg-8.6 Mg) 1 tab PO DAILY [facility] Last Admin: 08/09/18 10:03 Dose: 1 tab Results - Vital Signs Recent Vital Signs: Last Vital Signs Temp 98.4 F 08/09/18 15:30 Pulse 72 08/09/18 15:30 Resp 20 08/09/18 15:30 BP 102/62 08/09/18 15:30 Pulse Ox 100 08/09/18 15:30 - Labs Result Diagrams: 08/09/18 07:50 08/09/18 07:50 Labs: Laboratory Results - last 24 hr 08/09/18 08/09/18 08/09/18 07:50 07:50 11:23 WBC 4.4 L RBC 3.47 L Hgb 8.9 L Hct 27.8 L MCV 80.2 L MCH 25.7 L MCHC 32.0 L RDW 18.0 H Plt Count 663 H MPV 7.7 Neut % (Auto) 49.1 L Lymph % (Auto) 39.3 Hunt % (Auto) 9.4 Eos % (Auto) 1.4 Baso % (Auto) 0.8 Neut # (Auto) 2.1 Lymph # (Auto) 1.7 Hunt # (Auto) 0.4 Eos # (Auto) 0.1 Baso # (Auto) 0.0 PT 10.9 INR 1.0 Sodium 134 Potassium 4.1 Chloride 98 Carbon Dioxide 29 Anion Gap 12 BUN 12 Creatinine 0.6 L Est GFR ( Amer) > 60 Est GFR (Non-Af Amer) > 60 Random Glucose 89 Calcium 9.6 Phosphorus 4.8 H Magnesium 1.9 Total Bilirubin < 0.1 L AST 20 ALT < 6 L Alkaline Phosphatase 76 Total Protein 6.8 Albumin 3.5 Globulin 3.3 Albumin/Globulin Ratio 1.1 Attending/Attestation - Attestation I have personally seen and examined this patient.: Yes I have fully participated in the care of the patient.: Yes I have reviewed all pertinent clinical information: Yes Notes (Text): Pt was seen and examined at bedside Agree with above note and assessment Pt with lower abdominal pain and nausea Abdomen: Soft, Tender in lower abdomen, No peritoneal signs Labs and radiology reviewed Ass: Abdominal pain related to pelvic pathology Plan : [place] [facility] consult c.w current mx No general surgical intervention required at present Plan d.w pt in detail Risk and benefit explained in detail.
--- NOTE | 2018-08-04 00:43 | C.PDOC ---
History Of Present Illness 38 year old female with Hx of perforated gastric ulcer repaired approximately one year ago presents with left sided abdominal pain since last night associated with nausea and vomiting. Patient reports questionable blood in stool and decreased PO intake. Denies fever or recent travel. Chief Complaint (Nursing): Abdominal Pain History Per: Patient History/Exam Limitations: no limitations Onset/Duration Of Symptoms: Other (Last night) Current Symptoms Are (Timing): Still Present Location Of Pain/Discomfort: Other (Left sided) Associated Symptoms: Nausea, Vomiting, Other (Decreased PO intake, Questionable blood in stool). denies: Fever Exacerbating Factors: None Alleviating Factors: None Recent travel outside of the [place]: No Abnormal Vaginal Bleeding: No Past Medical History Reviewed: Historical Data, Nursing Documentation, Vital Signs Vital Signs: Last Vital Signs Temp 98.3 F 08/04/18 00:33 Pulse 86 08/04/18 00:33 Resp 20 08/04/18 00:33 BP 125/80 08/04/18 00:33 Pulse Ox 100 08/04/18 00:33 - Medical History PMH: Anxiety, Depression, HTN Denies: Diabetes, Hepatitis, HIV, Seizures, Sexually Transmitted Disease - [facility] Procedures BYPASS STOMACH TO JEJUNUM, OPEN APPROACH (10/18/17) DRAINAGE OF PELVIC CAVITY, OPEN APPROACH (10/18/17) DRAINAGE OF STOMACH WITH DRAINAGE DEVICE, VIA OPENING (12/17/17) EXCISION OF STOMACH, OPEN APPROACH (10/18/17) INSERT OF INFUSION PUMP INTO ABD SUBCU/FASCIA, PERC APPROACH (10/18/17) RELEASE PERITONEUM, OPEN APPROACH (10/18/17) SUPPLEMENT DUODENUM WITH AUTOL SUB, OPEN APPROACH (10/18/17) SUTURE OF LIP LACERATION (08/21/14) TETANUS TOXOID ADMINIST (08/21/14) Family History: States: Unknown Family Hx - Social History Hx Tobacco Use: Yes Hx Alcohol Use: Yes (occasional) Hx Substance Use: No - Immunization History Hx Tetanus Toxoid Vaccination: No Hx Influenza Vaccination: No Hx Pneumococcal Vaccination: No Review Of Systems Constitutional: Negative for: Fever, Chills Cardiovascular: Negative for: Chest Pain, Palpitations Respiratory: Negative for: Cough, Shortness of Breath Gastrointestinal: Positive for: Nausea, Vomiting, Abdominal Pain Neurological: Negative for: Weakness, Numbness Physical Exam - Physical Exam Appears: Non-toxic Skin: Normal Color, Warm Head: Atraumatic, Normacephalic Eye(s): bilateral: Normal Inspection Oral Mucosa: Moist Teeth: Other (Poor dentition) Neck: Normal, Supple Chest: Symmetrical, No Tenderness Cardiovascular: Rhythm Regular Respiratory: Normal Breath Sounds, No Rales, No Rhonchi, No Wheezing Gastrointestinal/Abdominal: Soft, Tenderness (Left sided), No Guarding, No Rebound, Other (Well healed surgical scars) Back: No CVA Tenderness Neurological/Psych: Oriented x3, Normal Speech ED Course And Treatment - Laboratory Results Result Diagrams: 08/03/18 17:10 08/03/18 17:10 Lab Results: Total Bilirubin 0.2 mg/dL (0.2-1.3) 08/03/18 17:10 AST 19 U/L (14-36) 08/03/18 17:10 ALT 15 U/L (9-52) 08/03/18 17:10 Alkaline Phosphatase 102 U/L (38-126) 08/03/18 17:10 Total Protein 6.9 g/dL (6.3-8.3) 08/03/18 17:10 Albumin 3.7 g/dL (3.5-5.0) 08/03/18 17:10 Globulin 3.2 gm/dL (2.2-3.9) 08/03/18 17:10 Albumin/Globulin Ratio 1.2 (1.0-2.1) 08/03/18 17:10 Lipase 31 U/L (23-300) 08/03/18 17:10 Urine Color Yellow (YELLOW) 08/03/18 17:10 Urine Clarity Clear (Clear) 08/03/18 17:10 Urine pH 6.0 (5.0-8.0) 08/03/18 17:10 Ur Specific Dixon 1.010 (1.003-1.030) 08/03/18 17:10 Urine Protein Negative mg/dL (NEGATIVE) 08/03/18 17:10 Urine Glucose (UA) Negative mg/dL (Normal) 08/03/18 17:10 Urine Ketones Negative mg/dL (NEGATIVE) 08/03/18 17:10 Urine Blood Negative (NEGATIVE) 08/03/18 17:10 Urine Nitrate Negative (NEGATIVE) 08/03/18 17:10 Urine Bilirubin Negative (NEGATIVE) 08/03/18 17:10 Urine Urobilinogen 0.2 mg/dL (0.2-1.0) 08/03/18 17:10 Ur Leukocyte Esterase Trace Naye/uL (Negative) 08/03/18 17:10 Urine WBC (Auto) 10 /hpf (0-5) H 08/03/18 17:10 Urine RBC (Auto) 2 /hpf (0-3) 08/03/18 17:10 Ur Squamous Epith Cells 19 /hpf (0-5) H 08/03/18 17:10 Urine Bacteria Occ (<OCC) H 08/03/18 17:10 Urine HCG, Qual Negative (NEGATIVE) 08/03/18 17:10 Urine HCG, Qual Negative (NEGATIVE) 08/03/18 17:10 O2 Sat by Pulse Oximetry: 100 - CT Scan/US CT abd/pel Other Rad Studies (CT/US): Read By Radiologist, Radiology Report Reviewed CT/US Interpretation: CT of the abdomen and pelvis with contrast. Clinical statement: Pain. Technique: Multiple axial CT images were obtained from the base of the lungs through the floor of the pelvis utilizing 5 mm axial slices after administration of nonionic intravenous contrast. Coronal and sagittal reconstructions were also obtained. Comparison: None. Findings: Chest: The visualized lung bases are clear. Abdomen: There is moderate amount of ascites and mesenteric stranding demonstrated in the left upper abdomen, predominantly anterior to the body and tail the pancreas. Postoperative changes within the fundus and proximal body of the stomach are noted. There is a small, well loculated cystic collection just inferior to the gastric surgical sutures in the left upper abdomen, measuring 1.8 x 2.3 x 2.3 cm. This appears to be extraluminal in nature, and does not communicate with bowel. The liver is enlarged measuring 21.8 cm in diameter. No focal hepatic masses are seen. The spleen, kidneys, gallbladder, and adrenal glands are unremarkable. The aorta is within normal limits. There is no evidence of abdominal lymphadenopathy. Pelvis: Moderate amount of stool fills the colon. The bowel is otherwise un remarkable, with no obstructive or inflammatory changes. The appendix is normal. The urinary bladder is within normal limits. Prominent left ovarian vein is appreciated, extending superiorly and joining the left renal pain. This is consistent with ovarian venous varices and reflux. The other pelvic structures appear grossly intact. There is no evidence of pelvic lymphadenopathy. Minimal ascites and infiltrated changes in the mesentery are seen throughout the pelvis. Bones: There are no suspicious osseous abnormalities seen. . Impression:1. Focal loculated fluid collection adjacent to the gastric surgical site in the left upper quadrant. With the patient's symptoms, this must be considered abscess until proven otherwise. No other evidence of perforation is seen at this time. There is no evidence of free intraperitoneal air. 2. Mild amount of ascites and mesenteric inflammation is seen throughout the abdomen and pelvis. 3. Hepatomegaly. The other solid organs of the abdomen are grossly within normal limits. 4. Moderate constipation. No obstructive or inflammatory bowel changes. 5. Pelvic congestion syndrome, with left ovarian varices noted as described. Progress Note: Obtained surgical consult after CT reading, recommended admission to medical service. Patient admitted under Dr. Nancy Zheng, antibiotics given per Dr. Nancy Zheng. Disposition - Disposition Disposition: HOSPITALIZED Disposition Time: 22:15 Condition: GOOD - Clinical Impression Clinical Impression: Abdominal pain - Scribe Statement The provider has reviewed the documentation as recorded by the Nestoribed Rivera All medical record entries made by the Nicole were at my direction and pers onally dictated by me. I have reviewed the chart and agree that the record accurately reflects my personal performance of the history, physical exam, medical decision making, and the department course for this patient. I have also personally directed, reviewed, and agree with the discharge instructions and disposition.
[2018-08-04] MEDS ORDERED: Piperacillin/Tazobact 3.375 gm 100 ML IVPB SCH (06:00)
--- NOTE | 2018-08-04 09:15 | CP.PCM.HP ---
Present on Admission - Present on Admission Any Indicators Present on Admission: No Past Patient History - Past Medical History & Family History Past Medical History?: Yes - Past Social History Smoking Status: Light Smoker < 10 Cigarettes Daily - CARDIAC Hx Hypertension: Yes - PULMONARY Hx Tuberculosis: No - NEUROLOGICAL Hx Seizures: No - HEMATOLOGICAL/ONCOLOGICAL Hx Human Immunodeficiency Virus (HIV): No - MUSCULOSKELETAL/RHEUMATOLOGICAL Hx Falls: No - GASTROINTESTINAL Other/Comment: perforated doudenem,perforated viscous - GENITOURINARY/GYNECOLOGICAL Hx Sexually Transmitted Disorders: No - PSYCHIATRIC Hx Anxiety: Yes Hx Depression: Yes Hx Substance Use: No - SURGICAL HISTORY Hx Surgeries: Yes Hx Herniorrhaphy: Yes Other/Comment: Abdominal Ulcer repair 11/17/2017. partial gastrectomy,gastrojejunostomy,omental patch - ANESTHESIA Hx Anesthesia: Yes Hx Anesthesia Reactions: No Meds Allergies/Adverse Reactions: Allergies Allergy/AdvReac Type Severity Reaction Status Date / Time No Known Allergies Allergy Verified 08/03/18 16:24 Physical Exam - Constitutional Appears: Well - Head Exam Head Exam: ATRAUMATIC, NORMAL INSPECTION, NORMOCEPHALIC - Eye Exam Eye Exam: EOMI, Normal appearance, PERRL Pupil Exam: NORMAL ACCOMODATION, PERRL - ENT Exam ENT Exam: Mucous Membranes Moist, Normal Exam - Neck Exam Neck exam: Positive for: Normal Inspection - Respiratory Exam Respiratory Exam: Decreased Breath Sounds - Cardiovascular Exam Cardiovascular Exam: REGULAR RHYTHM, +S1, +S2 - GI/Abdominal Exam GI & Abdominal Exam: Diminished Bowel Sounds, Soft - Rectal Exam Rectal Exam: Deferred - Neurological Exam Neurological exam: Oriented x3 Results - Vital Signs Recent Vital Signs: Last Vital Signs Temp 98.1 F 08/04/18 07:00 Pulse 84 08/04/18 07:00 Resp 20 08/04/18 07:00 BP 127/84 08/04/18 07:00 Pulse Ox 100 08/04/18 07:00 - Labs Result Diagrams: 08/03/18 17:10 08/03/18 17:10 Labs: Laboratory Results - last 24 hr 08/03/18 08/03/18 08/03/18 17:10 17:10 17:10 WBC 7.4 RBC 3.81 Hgb 9.8 L Hct 29.9 L MCV 78.6 L D MCH 25.8 L MCHC 32.8 L RDW 18.1 H Plt Count 516 H D MPV 8.1 Neut % (Auto) 71.4 Lymph % (Auto) 17.6 L [place] % (Auto) 10.1 H Eos % (Auto) 0.4 Baso % (Auto) 0.5 Neut # (Auto) 5.3 Lymph # (Auto) 1.3 [place] # (Auto) 0.8 Eos # (Auto) 0.0 Baso # (Auto) 0.0 Sodium 133 Potassium 3.9 Chloride 97 L Carbon Dioxide 27 Anion Gap 13 BUN 7 Creatinine 0.7 Est GFR ( Amer) > 60 Est GFR (Non-Af Amer) > 60 Random Glucose 93 D Calcium 9.3 Total Bilirubin 0.2 AST 19 ALT 15 Alkaline Phosphatase 102 Total Protein 6.9 Albumin 3.7 Globulin 3.2 Albumin/Globulin Ratio 1.2 Lipase 31 Urine Color Yellow Urine Clarity Clear Urine pH 6.0 Ur Specific [place] 1.010 Urine Protein Negative Urine Glucose (UA) Negative Urine Ketones Negative Urine Blood Negative Urine Nitrate Negative Urine Bilirubin Negative Urine Urobilinogen 0.2 Ur Leukocyte Esterase Trace Urine WBC (Auto) 10 H Urine RBC (Auto) 2 Ur Squamous Epith Cells 19 H Urine Bacteria Occ H Urine HCG, Qual Negative Assessment & Plan - Assessment and Plan (Free Text) Plan: ct scan report as per er 1. Focal loculated fluid collection adjacent to the gastric surgical site in the left upper quadrant. With the patient's symptoms, this must be considered abscess until proven otherwise. No other evidence of perforation is seen at this time. There is no evidence of free intraperitoneal air. 2. Mild amount of ascites and mesenteric inflammation is seen throughout the abdomen and pelvis. 3. Hepatomegaly. The other solid organs of the abdomen are grossly within normal limits. 4. Moderate constipation. No obstructive or inflammatory bowel changes. 5. Pelvic congestion syndrome, with left ovarian varices noted as described. Continue Colace Continue polyethylene glycol MiraLAX Morphine as needed for pain P Apresoline IV every 8 IV fluid Consult with Dr. Quiros Patient had abdominal CAT scan the reports pedning official one Blood pressure on arrival 133/82 Hemoglobin 9.8 Creatinine is 0.7 3 potassium is 3.9 HAND SPRAYER consult
[2018-08-04] MEDS: POLYETHYLENE GLYCOL 3350 17 GM/Dose PACKET PO SCH ×3 (11:23→21:30)
--- NOTE | 2018-08-04 12:41 | CT ---
Date of service: 08/03/2018 PROCEDURE: CT Abdomen and Pelvis with and without intravenous contrast HISTORY: left sided abdominal pain - h/o gastric surgery COMPARISON: 12/27/2017 TECHNIQUE: Axial images of the abdomen were obtained in the pre contrast, portal venous and delayed phases of enhancement. Coronal and sagittal reformats were generated. Contrast dose: Radiation dose: Total exam DLP = 239.92 mGy-cm. This CT exam was performed using one or more of the following dose reduction techniques: Automated exposure control, adjustment of the mA and/or kV according to patient size, and/or use of iterative reconstruction technique. FINDINGS: LOWER THORAX: Unremarkable. LIVER: Unremarkable. No gross lesion or ductal dilatation. GALLBLADDER AND BILE DUCTS: Unremarkable. PANCREAS: Unremarkable. No gross lesion or ductal dilatation. SPLEEN: Unremarkable. ADRENALS: Unremarkable. No mass. KIDNEYS AND URETERS: Unremarkable. No hydronephrosis. No solid mass. VASCULATURE: Unremarkable. No aortic aneurysm. No aortic atherosclerotic calcification or mural plaque present. BOWEL: Unremarkable. No obstruction. No gross mural thickening. APPENDIX: Normal appendix. PERITONEUM: Unremarkable. No free fluid. No free air. LYMPH NODES: Unremarkable. No enlarged lymph nodes. BLADDER: Unremarkable. REPRODUCTIVE: Unremarkable. BONES: No acute fracture. OTHER FINDINGS: Status post gastric surgery with a roughly 15 millimeter ill-defined fluid collection just inferior to the surgical site with generalized mild haziness of the mesenteric fat throughout the abdominal pelvic cavity. IMPRESSION: Status post gastric surgery with a roughly 15 millimeter ill-defined fluid collection just inferior to the surgical site with generalized mild haziness of the mesenteric fat throughout the abdominal pelvic cavity.
--- NOTE | 2018-08-04 13:53 | US ---
Date of service: 08/04/2018 PROCEDURE: HISTORY: abdominal pain. LMP in September of 2017 COMPARISON: None TECHNIQUE: Transabdominal and transvaginal technique utilized. Color/Doppler applied FINDINGS: Uterus is anteverted. No masses noted. Uterus measures 6.0 x 3.1 x 3.6 cm. Endometrial stripe complex normal limits at 0.57 cm. Cul-de-sac fluid present. Right ovary/right adnexa: Multiple sub cm physiologic appearing follicles noted the largest measures 8 x 6 x 8 mm. A 2 mm right ovarian calcifications suggested. Doppler flow present and unremarkable. No suspicious right ovarian/right adnexal masses Left ovary/adnexa: Left ovary measures 2.4 x 1.9 x 2.3 cm. Left ovary contains multiple follicles the dominant follicle here measures 11 x 10 x 11 mm. Tiny calcification here 2 mm. Prominent left adnexal vessels-this can be seen with a clinical pelvic congestion syndrome. Clinical correlation recommended. IMPRESSION: No uterine masses appreciated. Unremarkable appearing endometrium. Cul-de-sac fluid-mild. Bilateral physiologic appearing ovarian follicles dominant follicle on the left. No suspicious solid or cystic masses in either ovary. Prominent left adnexal vessels-this can be seen with a pelvic congestion clinical syndrome. Correlate clinically. Comments: Study marked for PA review .
[2018-08-04] MEDS: Docusate-Senna 50 mg-8.6 mg Tab PO SCH (14:08)
[2018-08-04] MEDS: Piperacillin/Tazobact 3.375 GM in Sodium Chloride 0.9% 100 ML IVPB SCH ×2 (14:08→21:30)
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
[2018-08-04] MEDS: Oxycodone/Acetaminophen 5/325 mg Tab PO PRN (18:20)
[2018-08-05] MEDS: Oxycodone/Acetaminophen 5/325 mg Tab PO PRN ×3 (05:26→23:29)
[2018-08-05] MEDS: Piperacillin/Tazobact 3.375 GM in Sodium Chloride 0.9% 100 ML IVPB SCH (05:28)
[2018-08-05 07:36] LABS: HEMOGLOBIN 8.8 g/dL (11.0-16.0); MEAN CORPUSCULAR HEMOGLOBIN 25.7 pg (27.0-31.0); MEAN CORPUSCULAR HGB CONC 31.4 g/dL (33.0-37.0); MEAN PLATELET VOLUME 8.1 fL (7.2-11.7); RBC 3.43 Mil/uL (3.80-5.20); RED CELL DISTRIBUTION WIDTH 18.5 % (11.5-14.5); WHITE BLOOD COUNT 6.1 K/uL (4.8-10.8)
[2018-08-05 07:41] LABS: MEAN CELL VOLUME 81.8 fL (81.0-99.0)
[2018-08-05 07:58] LABS: BLOOD UREA NITROGEN 8 mg/dL (7-17); CALCIUM 8.7 mg/dl (8.6-10.4); GFR NON-AFRICAN AMERICAN > 60
[2018-08-05] MEDS: POLYETHYLENE GLYCOL 3350 17 GM/Dose PACKET PO SCH ×2 (09:32→19:05)
[2018-08-05] MEDS: Docusate-Senna 50 mg-8.6 mg Tab PO SCH (09:32)
[2018-08-05 11:48] LABS: ALB/GLOB RATIO 1.1 (1.0-2.1); ALBUMIN 3.1 g/dL (3.5-5.0); ALT/SGPT 11 U/L (9-52); AST/SGOT 14 U/L (14-36); BLOOD UREA NITROGEN 8 mg/dL (7-17); CALCIUM 8.9 mg/dl (8.6-10.4); GFR NON-AFRICAN AMERICAN > 60
--- NOTE | 2018-08-05 13:08 | CP.PCM.PN ---
Subjective - Date & Time of Evaluation Date of Evaluation: 08/05/18 Time of Evaluation: 07:55 - Subjective Subjective: Medicine note ( Dr. Nidhi Zheng) Patient was seen and examined at bedside. Patient still admits to left lower pelvic pain and constipation but denies any symptoms of fever, chills, nausea, vomiting, chest pain, palpitations, shortness of breath, dizziness and urinary symptoms. 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 Patient admits to associated symptoms of constipation but denies any symptoms of fever, chills, nausea, vomiting, palpitations, shortness of breath, vaginal discharge, abnormal vaginal bleeding, hematochezia,. In addition, patient reports that she has not had her menstrual cycle since last September 2017. Patient states OTC tylenol provides symptomatic relief. 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 Omental patch and Antrum of stomach and 1st part of duodenum removed FHx: Maternal Grandmother: ? bladder or female reproductive Medications: OTC tylenol for pain control OB hx: x 2 - currently with a 23 year old daughter who was 6 lbs 1 oz. And a 20 year old son who was 7 lbs 2 oz. Both pregnancies resulting in were uneventful. She had 1 elective shortly after her son and is unsure how many weeks the fetus was (maybe 10 weeks?). Had D&C. [employer] hx: Significant for a distant history of chlamydia at 14 y/o - she and her partner were both treated. Denies history of fibroids, endometriosis, adenomyosis, and abnormal pap smears. Last pap she estimates was 2014. Patient does not have an OBGYN but goes to [facility] clinic for primary care, last time was definitely more than a year ago. Menarche at 9 years old, monthly, lasting for 3-5 days. Was moderate and then turned heavier after she had her children. Amenorrhea since her surgery on November 04, 2017. Social Hx: Lives with an aunt, admits to tobacco use since 14 years old (10 cigarettes per day), PCP use and marijuana use denies ETOH use Objective - Vital Signs/Intake and Output Vital Signs (last 24 hours): Temp Pulse Resp BP Pulse Ox 97.7 F 70 20 118/75 100 08/05/18 08:03 08/05/18 08:03 08/05/18 08:03 08/05/18 08:03 08/05/18 08:10 Intake and Output: 08/05/18 08/05/18 06:59 18:59 Intake Total 460 Balance 460 - Medications Medications: Current Medications Acetaminophen (Tylenol 325mg Tab) 650 mg PO Q4 PRN PRN Reason: Pain, moderate (4-7) Last Admin: 08/05/18 10:13 Dose: 650 mg Docusate Sodium (Colace) 100 mg PO DAILY [facility] Last Admin: 08/05/18 09:32 Dose: 100 mg Oxycodone/Acetaminophen (Percocet 5/325 Mg Tab) 1 tab PO Q6H PRN PRN Reason: Pain, severe (8-10) Stop: 08/07/18 11:46 Last Admin: 08/05/18 05:26 Dose: 1 tab Polyethylene Glycol (Miralax) 17 gm PO BID [facility] Last Admin: 08/05/18 09:32 Dose: 17 gm Senna/Docusate Sodium (Senokot S 50 Mg-8.6 Mg) 1 tab PO DAILY [facility] Last Admin: 08/05/18 09:32 Dose: 1 tab - Labs Labs: 08/05/18 07:29 08/05/18 11:23 - Constitutional Appears: Non-toxic, No Acute Distress - Head Exam Head Exam: ATRAUMATIC - Eye Exam Eye Exam: EOMI, Normal appearance - ENT Exam ENT Exam: Mucous Membranes Moist - Respiratory Exam Respiratory Exam: Clear to Ausculation Bilateral, NORMAL BREATHING PATTERN. absent: Decreased Breath Sounds, Prolonged Expiratory Phase, Rhonchi, Wheezes, Respiratory Distress - Cardiovascular Exam Cardiovascular Exam: REGULAR RHYTHM, +S1, +S2. absent: Tachycardia, Clicks, Diastolic murmur, Murmur - GI/Abdominal Exam GI & Abdominal Exam: Soft, Normal Bowel Sounds. absent: Distended, Firm, Guarding, Rigid, Tenderness Additional comments: No tenderness of LLQ/Left pelvic exam due pain medication given before encounter - Rectal Exam Additional comments: Intra-rectal mobile cyst on rectal exam - Extremities Exam Extremities Exam: Normal Inspection. absent: Calf Tenderness, Pedal Edema - Back Exam Back Exam: NORMAL INSPECTION. absent: CVA tenderness (L), CVA tenderness (R) - Neurological Exam Neurological Exam: Alert, Awake, Oriented x3 - Psychiatric Exam Psychiatric exam: Normal Affect - Skin Skin Exam: Normal Color Assessment and Plan (1) Left lower quadrant pain Assessment & Plan: Afebrile and no Leukocytosis Tolerates PO diet Consultation: * General surgery, Dr. Quiros Imaging: Abdomen/Pelvis CT with IV contrast: Status post gastric surgery with a roughly 15 millimeter ill-defined fluid collection just inferior to the surgical site with generalized mild haziness of the mesenteric fat throughout the abdominal pelvic cavity. F/u upper GI series with water soluble contrast: R/o leakage due to fluid collection noted abdomen/Pelvis CT Status: Acute (2) Pelvic pain Assessment & Plan: Left Imaging: Transvaginal/Transabdominal: No uterine masses appreciated. Unremarkable appearing endometrium. Cul-de-sac fluid-mild. Bilateral physiologic appearing ovarian follicles dominant follicle on the left. No suspicious solid or cystic masses in either ovary. Prominent left adnexal vessels-this can be seen with a pelvic congestion clinical syndrome. Correlate clinically. Medications for pain control: * Percocet 5/325mg 1 tab PO Q6H PRN * Tylenol 650mg PO Q4H PRN Status: Acute (3) Prophylactic measure Assessment & Plan: GI: Not indicated DVT: SCDs, no chemical agent indicated All plans and management discussed with Dr. Nidhi Zheng Status: Acute
[2018-08-05 14:55] LABS: TESTOSTERONE 10.2 ng/mL
[2018-08-05 15:35] LABS: FSH 6.8 mIU/mL
--- NOTE | 2018-08-05 19:19 | CP.PCM.PN ---
Subjective - Date & Time of Evaluation Date of Evaluation: 08/05/18 - Subjective Subjective: patient seen today no nausea, no fever, no vomiting, no diarrhea, no sob Objective - Vital Signs/Intake and Output Vital Signs (last 24 hours): Temp Pulse Resp BP Pulse Ox 98.0 F 91 H 20 110/74 100 08/05/18 15:00 08/05/18 15:00 08/05/18 15:00 08/05/18 15:00 08/05/18 15:00 - Medications Medications: Current Medications Acetaminophen (Tylenol 325mg Tab) 650 mg PO Q4 PRN PRN Reason: Pain, moderate (4-7) Last Admin: 08/05/18 10:13 Dose: 650 mg Docusate Sodium (Colace) 100 mg PO DAILY [facility] Last Admin: 08/05/18 09:32 Dose: 100 mg Oxycodone/Acetaminophen (Percocet 5/325 Mg Tab) 1 tab PO Q6H PRN PRN Reason: Pain, severe (8-10) Stop: 08/07/18 11:46 Last Admin: 08/05/18 14:17 Dose: 1 tab Polyethylene Glycol (Miralax) 17 gm PO BID [facility] Last Admin: 08/05/18 19:05 Dose: 17 gm Senna/Docusate Sodium (Senokot S 50 Mg-8.6 Mg) 1 tab PO DAILY [facility] Last Admin: 08/05/18 09:32 Dose: 1 tab - Labs Labs: 08/05/18 07:29 08/05/18 11:23 - Constitutional Appears: Well - Head Exam Head Exam: ATRAUMATIC, NORMAL INSPECTION, NORMOCEPHALIC - Eye Exam Eye Exam: EOMI, Normal appearance, PERRL Pupil Exam: NORMAL ACCOMODATION, PERRL - ENT Exam ENT Exam: Mucous Membranes Moist, Normal Exam - Neck Exam Neck Exam: Full ROM, Normal Inspection. absent: Lymphadenopathy - Respiratory Exam Respiratory Exam: Decreased Breath Sounds - Cardiovascular Exam Cardiovascular Exam: REGULAR RHYTHM, +S1, +S2 - GI/Abdominal Exam GI & Abdominal Exam: Soft, Diminished Bowel Sounds - Rectal Exam Rectal Exam: Deferred - Neurological Exam Neurological Exam: Oriented x3 Assessment and Plan - Assessment and Plan (Free Text) Plan: colace miralax percocet senokot tylenol
[2018-08-06 07:51] LABS: BASO % 0.5 % (0.0-2.0); EOS % 0.8 % (0.0-4.0); HEMOGLOBIN 9.3 g/dL (11.0-16.0); LYMPH # 1.7 K/uL (1.0-4.3); LYMPH % 30.1 % (20.0-40.0); MEAN CORPUSCULAR HEMOGLOBIN 25.4 pg (27.0-31.0); MEAN CORPUSCULAR HGB CONC 31.4 g/dL (33.0-37.0); MONO # 0.4 K/uL (0.0-0.8); MONO % 7.6 % (0.0-10.0); NEUT # 3.4 K/uL (1.8-7.0); RBC 3.67 Mil/uL (3.80-5.20); RED CELL DISTRIBUTION WIDTH 18.4 % (11.5-14.5); WHITE BLOOD COUNT 5.6 K/uL (4.8-10.8)
[2018-08-06 08:01] LABS: ALB/GLOB RATIO 1.1 (1.0-2.1); ALBUMIN 3.4 g/dL (3.5-5.0); ALT/SGPT 7 U/L (9-52); AST/SGOT 24 U/L (14-36); BLOOD UREA NITROGEN 6 mg/dL (7-17); CALCIUM 9.5 mg/dl (8.6-10.4); GFR NON-AFRICAN AMERICAN > 60
[2018-08-06] MEDS: Oxycodone/Acetaminophen 5/325 mg Tab PO PRN ×2 (08:09→16:15)
--- NOTE | 2018-08-06 09:35 | CP.PCM.PN ---
Subjective - Date & Time of Evaluation Date of Evaluation: 08/06/18 - Subjective Subjective: patient seen today no nausuea, no vomitng, no dizziness, no fever, no shortness of breath, no diarrhea Objective - Vital Signs/Intake and Output Vital Signs (last 24 hours): Temp Pulse Resp BP Pulse Ox 98.2 F 76 20 122/76 97 08/06/18 07:39 08/06/18 07:39 08/06/18 07:39 08/06/18 07:39 08/06/18 07:39 Intake and Output: 08/06/18 08/06/18 06:59 18:59 Intake Total 450 100 Balance 450 100 - Medications Medications: Current Medications Acetaminophen (Tylenol 325mg Tab) 650 mg PO Q4 PRN PRN Reason: Pain, moderate (4-7) Last Admin: 08/06/18 02:17 Dose: 650 mg Docusate Sodium (Colace) 100 mg PO DAILY [facility] Last Admin: 08/05/18 09:32 Dose: 100 mg Oxycodone/Acetaminophen (Percocet 5/325 Mg Tab) 1 tab PO Q6H PRN PRN Reason: Pain, severe (8-10) Stop: 08/07/18 11:46 Last Admin: 08/06/18 08:09 Dose: 1 tab Polyethylene Glycol (Miralax) 17 gm PO BID [facility] Last Admin: 08/05/18 19:05 Dose: 17 gm Senna/Docusate Sodium (Senokot S 50 Mg-8.6 Mg) 1 tab PO DAILY [facility] Last Admin: 08/05/18 09:32 Dose: 1 tab - Labs Labs: 08/06/18 07:27 08/06/18 07:27 - Constitutional Appears: Well - Head Exam Head Exam: ATRAUMATIC, NORMAL INSPECTION, NORMOCEPHALIC - Eye Exam Eye Exam: EOMI, Normal appearance, PERRL Pupil Exam: NORMAL ACCOMODATION, PERRL - ENT Exam ENT Exam: Mucous Membranes Moist, Normal Exam - Neck Exam Neck Exam: Full ROM, Normal Inspection. absent: Lymphadenopathy - Respiratory Exam Respiratory Exam: Decreased Breath Sounds - Cardiovascular Exam Cardiovascular Exam: REGULAR RHYTHM, +S1, +S2 - GI/Abdominal Exam GI & Abdominal Exam: Soft, Diminished Bowel Sounds - Rectal Exam Rectal Exam: Deferred - Neurological Exam Neurological Exam: Oriented x3 Assessment and Plan - Assessment and Plan (Free Text) Plan: colace miralax percocet senokot tylenol medications reviewed labs reviewed vitals reviewed
[2018-08-06] MEDS ORDERED: Iohexol 240 200 ML ONE (09:54)
--- NOTE | 2018-08-06 10:14 | CP.PCM.PN ---
Subjective - Date & Time of Evaluation Date of Evaluation: 08/06/18 Time of Evaluation: 08:00 - Subjective Subjective: Medicine Progress Note for Dr. Nancy Zheng Patient was seen and examined at bedside in the AM. Patient was resting comfortably in bed. Patient stated she had slight pain earlier for which was relieved by pain medication. Objective - Vital Signs/Intake and Output Vital Signs (last 24 hours): Temp Pulse Resp BP Pulse Ox 98.2 F 76 20 122/76 97 08/06/18 07:39 08/06/18 07:39 08/06/18 07:39 08/06/18 07:39 08/06/18 07:39 Intake and Output: 08/06/18 08/06/18 06:59 18:59 Intake Total 450 100 Balance 450 100 - Medications Medications: Current Medications Acetaminophen (Tylenol 325mg Tab) 650 mg PO Q4 PRN PRN Reason: Pain, moderate (4-7) Last Admin: 08/06/18 02:17 Dose: 650 mg Docusate Sodium (Colace) 100 mg PO DAILY [facility] Last Admin: 08/05/18 09:32 Dose: 100 mg Oxycodone/Acetaminophen (Percocet 5/325 Mg Tab) 1 tab PO Q6H PRN PRN Reason: Pain, severe (8-10) Stop: 08/07/18 11:46 Last Admin: 08/06/18 08:09 Dose: 1 tab Polyethylene Glycol (Miralax) 17 gm PO BID [facility] Last Admin: 08/05/18 19:05 Dose: 17 gm Senna/Docusate Sodium (Senokot S 50 Mg-8.6 Mg) 1 tab PO DAILY [facility] Last Admin: 08/05/18 09:32 Dose: 1 tab - Labs Labs: 08/06/18 07:27 08/06/18 07:27 - Constitutional Appears: No Acute Distress - Head Exam Head Exam: ATRAUMATIC, NORMAL INSPECTION - Eye Exam Eye Exam: EOMI, Normal appearance - ENT Exam ENT Exam: Mucous Membranes Moist - Respiratory Exam Respiratory Exam: Clear to Ausculation Bilateral, NORMAL BREATHING PATTERN - GI/Abdominal Exam GI & Abdominal Exam: Soft, Normal Bowel Sounds. absent: Tenderness - Neurological Exam Neurological Exam: Alert, Awake, Oriented x3 - Psychiatric Exam Psychiatric exam: Normal Affect Assessment and Plan - Assessment and Plan (Free Text) Assessment: Left lower quadrant pain Afebrile and no Leukocytosis Tolerates PO diet Consultation: * General surgery, Dr. Quiros Imaging: Abdomen/Pelvis CT with IV contrast: Status post gastric surgery with a roughly 15 millimeter ill-defined fluid collection just inferior to the surgical site with generalized mild haziness of the mesenteric fat throughout the abdominal pelvic cavity. F/u upper GI series with water soluble contrast: R/o leakage due to fluid collection noted abdomen/Pelvis CT Pelvic pain Left Imaging: Transvaginal/Transabdominal: No uterine masses appreciated. Unremarkable appearing endometrium. Cul-de-sac fluid-mild. Bilateral physiologic appearing ovarian follicles dominant follicle on the left. No suspicious solid or cystic masses in either ovary. Prominent left adnexal vessels-this can be seen with a pelvic congestion clinical syndrome. Correlate clinically. Medications for pain control: * Percocet 5/325mg 1 tab PO Q6H PRN * Tylenol 650mg PO Q4H PRN Prophylactic measure GI: Not indicated DVT: SCDs, no chemical agent indicated All plans and management discussed with Dr. Nidhi Zheng
[2018-08-06] MEDS: POLYETHYLENE GLYCOL 3350 17 GM/Dose PACKET PO SCH ×2 (11:12→17:44)
[2018-08-06] MEDS: Docusate-Senna 50 mg-8.6 mg Tab PO SCH (11:37)
--- NOTE | 2018-08-06 16:44 | RAD ---
Date of service: 08/06/2018 PROCEDURE: Limited upper GI series HISTORY: Prior gastrectomy. Evaluate for leak. COMPARISON: CT abdomen and pelvis dated 08/03/2018 TECHNIQUE: Fluoroscopic evaluation of the esophagus and stomach was performed following administration of oral contrast. FINDINGS: Limited study for evaluation of postsurgical leak. Patient status post prior gastrectomy. Contrast flowed through the esophagus, stomach, and proximal small bowel without evidence of delay or gross extravasation. Upon delayed images, there was some pooling of contrast seen at the posterior aspect at the level of the remnant gastric pouch. This is of uncertain clinical etiology and may be related to a focal distension of the gastric pouch; however, in correlation with the CT scan dated 08/03/2018 a small contained leak cannot be excluded. Further evaluation with an oral and IV contrast enhanced CT scan of the abdomen and pelvis is recommended to better evaluate for any contrast extension to the abnormality seen on recent CT scan. IMPRESSION: Limited study for evaluation of postsurgical leak. Patient status post prior gastrectomy. Contrast flowed through the esophagus, stomach, and proximal small bowel without evidence of delay or gross extravasation. Upon delayed images, there was some pooling of contrast seen at the posterior aspect at the level of the remnant gastric pouch. This is of uncertain clinical etiology and may be related to a focal distension of the gastric pouch; however, in correlation with the CT scan dated 08/03/2018 a small contained leak cannot be excluded. Further evaluation with an oral and IV contrast enhanced CT scan of the abdomen and pelvis is recommended to better evaluate for any contrast extension to the abnormality seen on recent CT scan.
[2018-08-07] MEDS: Oxycodone/Acetaminophen 5/325 mg Tab PO PRN ×3 (01:00→15:15)
[2018-08-07 07:10] LABS: BASO % 0.3 % (0.0-2.0); EOS % 0.5 % (0.0-4.0); LYMPH # 1.9 K/uL (1.0-4.3); LYMPH % 33.4 % (20.0-40.0); MEAN CORPUSCULAR HEMOGLOBIN 25.6 pg (27.0-31.0); MEAN CORPUSCULAR HGB CONC 31.6 g/dL (33.0-37.0); MEAN PLATELET VOLUME 7.7 fL (7.2-11.7); MONO # 0.5 K/uL (0.0-0.8); NEUT # 3.3 K/uL (1.8-7.0); NEUT % 57.8 % (50.0-75.0); NRBC % 0.1 % (0.0-2.0); RBC 3.5 Mil/uL (3.80-5.20); RED CELL DISTRIBUTION WIDTH 18.3 % (11.5-14.5); WHITE BLOOD COUNT 5.8 K/uL (4.8-10.8)
[2018-08-07 07:49] LABS: ALB/GLOB RATIO 1.1 (1.0-2.1); ALBUMIN 3.3 g/dL (3.5-5.0); ALT/SGPT 10 U/L (9-52); AST/SGOT 20 U/L (14-36); BLOOD UREA NITROGEN 7 mg/dL (7-17); CALCIUM 9.1 mg/dl (8.6-10.4); GFR NON-AFRICAN AMERICAN > 60
--- NOTE | 2018-08-07 09:13 | CP.PCM.PN ---
Subjective - Date & Time of Evaluation Date of Evaluation: 08/07/18 Time of Evaluation: 07:20 - Subjective Subjective: Medicine note ( Dr. Nidhi Zheng's service) Patient was seen and examined at bedside, while resting in bed in no acute distress. Patient still admits to intermittent LLQ/Left Pelvic pain. Patient denies any symptoms of fever, chills, nausea, vomiting, chest pain, palpitations, shortness of breath, bowel changes and urinary symptoms. Objective - Vital Signs/Intake and Output Vital Signs (last 24 hours): Temp Pulse Resp BP Pulse Ox 97.7 F 80 20 128/91 H 100 08/07/18 07:00 08/07/18 07:00 08/07/18 07:00 08/07/18 07:00 08/07/18 07:00 Intake and Output: 08/07/18 08/07/18 06:59 18:59 Intake Total 840 Balance 840 - Medications Medications: Current Medications Acetaminophen (Tylenol 325mg Tab) 650 mg PO Q4 PRN PRN Reason: Pain, moderate (4-7) Last Admin: 08/06/18 02:17 Dose: 650 mg Docusate Sodium (Colace) 100 mg PO DAILY [facility] Last Admin: 08/06/18 11:11 Dose: 100 mg Oxycodone/Acetaminophen (Percocet 5/325 Mg Tab) 1 tab PO Q6H PRN PRN Reason: Pain, severe (8-10) Stop: 08/07/18 11:46 Last Admin: 08/07/18 08:03 Dose: 1 tab Polyethylene Glycol (Miralax) 17 gm PO BID [facility] Last Admin: 08/06/18 17:44 Dose: 17 gm Senna/Docusate Sodium (Senokot S 50 Mg-8.6 Mg) 1 tab PO DAILY [facility] Last Admin: 08/06/18 11:37 Dose: 1 tab - Labs Labs: 08/07/18 07:02 08/07/18 07:02 - Constitutional Appears: No Acute Distress - Head Exam Head Exam: ATRAUMATIC - Eye Exam Eye Exam: EOMI, Normal appearance - ENT Exam ENT Exam: Mucous Membranes Moist - Respiratory Exam Respiratory Exam: Clear to Ausculation Bilateral, NORMAL BREATHING PATTERN. absent: Decreased Breath Sounds, Prolonged Expiratory Phase, Rhonchi, Wheezes, Respiratory Distress - Cardiovascular Exam Cardiovascular Exam: REGULAR RHYTHM, +S1, +S2. absent: Tachycardia, Murmur - GI/Abdominal Exam GI & Abdominal Exam: Soft, Tenderness, Normal Bowel Sounds Additional comments: Mild tenderness at the LLQ/Left pelvic pain - Extremities Exam Extremities Exam: Normal Inspection. absent: Calf Tenderness, Pedal Edema - Neurological Exam Neurological Exam: Alert, Awake, Normal Gait, Oriented x3 - Psychiatric Exam Psychiatric exam: Normal Affect - Skin Skin Exam: Normal Color Assessment and Plan (1) Left lower quadrant pain Assessment & Plan: febrile and no Leukocytosis Tolerates PO diet Consultation: * General surgery, Dr. Quiros -Management as per recommendation * GI: Dr. Coon---> Help appreciated Imaging: Abdomen/Pelvis CT with IV contrast: Status post gastric surgery with a roughly 15 millimeter ill-defined fluid collection just inferior to the surgical site with generalized mild haziness of the mesenteric fat throughout the abdominal pelvic cavity. Upper GI series with water soluble contrast (08/06/18): Limited study for evaluation of postsurgical leak. Patient status post prior gastrectomy. Contrast flowed through the esophagus, stomach, and proximal small bowel without evidence of delay or gross extravasation. Upon delayed images, there was some pooling of contrast seen at the posterior aspect at the level of the remnant gastric pouch. This is of uncertain clinical etiology and may be related to a focal distension of the gastric pouch; however, in correlation with the CT scan dated 08/03/2018 a small contained leak cannot be excluded. Further evaluation with an oral and IV contrast enhanced CT scan of the abdomen and pelvis is recommended to better evaluate for any contrast extension to the abnormality seen on recent CT scan. Abdomen/Pelvis with PO contrast (08/07/18) as per radiologist read recommendation and with continuous pain at LLQ: Ulcer or ulcerating mass along the posterior wall of the stomach at the anastomotic suture line. The findings conform to recent upper GI series. There is no evidence of extravasation or leak. No visible free air. No drainable collection identified. Status: Acute (2) Pelvic pain Assessment & Plan: Left Imaging: Transvaginal/Transabdominal: No uterine masses appreciated. Unremarkable appearing endometrium. Cul-de-sac fluid-mild. Bilateral physiologic appearing ovarian follicles dominant follicle on the left. No suspicious solid or cystic masses in either ovary. Prominent left adnexal vessels-this can be seen with a pelvic congestion clinical syndrome. Correlate clinically. Medications for pain control: * Percocet 5/325mg 1 tab PO Q6H PRN * Tylenol 650mg PO Q4H PRN Disposition: Patient will need outpatient [employer] [facility] follow up Status: Acute (3) Amenorrhea Assessment & Plan: Urine hCG (08/03/18): Negative TSH and Free T4: 0.85 and 1.01 ( WNL) FSH: 6.8 (WNL) LH: 1.8 (WNL) Status: Acute (4) Prophylactic measure Assessment & Plan: GI: Not indicated DVT: SCDs, no chemical agent indicated All plans and management discussed with Dr. Nidhi Zheng Status: Acute
[2018-08-07] MEDS ORDERED: Iohexol 240 (50 ml) PO ONE (09:45)
[2018-08-07] MEDS: POLYETHYLENE GLYCOL 3350 17 GM/Dose PACKET PO SCH ×2 (11:24→17:49)
[2018-08-07] MEDS: Docusate-Senna 50 mg-8.6 mg Tab PO SCH (11:25)
--- NOTE | 2018-08-07 13:03 | CP.PCM.PN ---
Subjective - Date & Time of Evaluation Date of Evaluation: 07/31/18 - Subjective Subjective: patient seen today no nausea no vomiting no fever no dizziness no diarrhea no shortness of breath Objective - Vital Signs/Intake and Output Vital Signs (last 24 hours): Temp Pulse Resp BP Pulse Ox 97.7 F 80 20 128/91 H 100 08/07/18 07:00 08/07/18 07:00 08/07/18 07:00 08/07/18 07:00 08/07/18 07:00 Intake and Output: 08/07/18 08/07/18 06:59 18:59 Intake Total 840 Balance 840 - Medications Medications: Current Medications Acetaminophen (Tylenol 325mg Tab) 650 mg PO Q4 PRN PRN Reason: Pain, moderate (4-7) Last Admin: 08/06/18 02:17 Dose: 650 mg Docusate Sodium (Colace) 100 mg PO DAILY [facility] Last Admin: 08/07/18 11:24 Dose: 100 mg Polyethylene Glycol (Miralax) 17 gm PO BID [facility] Last Admin: 08/07/18 11:24 Dose: 17 gm Senna/Docusate Sodium (Senokot S 50 Mg-8.6 Mg) 1 tab PO DAILY [facility] Last Admin: 08/07/18 11:25 Dose: 1 tab - Labs Labs: 08/07/18 07:02 08/07/18 07:02 - Constitutional Appears: Well - Head Exam Head Exam: ATRAUMATIC, NORMAL INSPECTION, NORMOCEPHALIC - Eye Exam Eye Exam: EOMI, Normal appearance, PERRL Pupil Exam: NORMAL ACCOMODATION, PERRL - ENT Exam ENT Exam: Mucous Membranes Moist, Normal Exam - Neck Exam Neck Exam: Full ROM, Normal Inspection. absent: Lymphadenopathy - Respiratory Exam Respiratory Exam: Decreased Breath Sounds - Cardiovascular Exam Cardiovascular Exam: REGULAR RHYTHM, +S1, +S2 - GI/Abdominal Exam GI & Abdominal Exam: Soft, Diminished Bowel Sounds - Rectal Exam Rectal Exam: Deferred - Neurological Exam Neurological Exam: Oriented x3 Assessment and Plan - Assessment and Plan (Free Text) Plan: labs reviewed vitals reviewed medications reviewed colace miralax percocet senokot tylenol
--- NOTE | 2018-08-07 13:48 | CT ---
Date of service: 08/07/2018 PROCEDURE: CT Abdomen and Pelvis with contrast HISTORY: Left sided abdominal pain COMPARISON: 08/03/2018. CT abdomen and pelvis. 01/06/2018. CT abdomen and pelvis. Upper GI performed 08/06/2018. TECHNIQUE: Oral contrast only. Radiation dose: Total exam DLP = 213.99 mGy-cm. This CT exam was performed using one or more of the following dose reduction techniques: Automated exposure control, adjustment of the mA and/or kV according to patient size, and/or use of iterative reconstruction technique. FINDINGS: LOWER THORAX: Unremarkable. LIVER: Unremarkable. No gross lesion or ductal dilatation. GALLBLADDER AND BILE DUCTS: Unremarkable. PANCREAS: Unremarkable. No gross lesion or ductal dilatation. SPLEEN: Unremarkable. ADRENALS: Unremarkable. No mass. KIDNEYS AND URETERS: Unremarkable. No hydronephrosis. No solid mass. VASCULATURE: Unremarkable. No aortic aneurysm. No atherosclerotic calcification or mural plaque present. BOWEL: Redemonstration of postoperative changes left upper quadrant related to gastric bypass surgery. Contrast and debris identified proximal to the surgical suture line. Beyond the suture line is on ulcerating process with edema in this conforms to findings on the upper GI the posterior aspect of stomach. There is no extravasation or leak. No abnormalities with respect to more distal anise Modic suture lines. APPENDIX: A normal appendix is visualized in it's entirety. PERITONEUM: LYMPH NODES: Unremarkable. No enlarged lymph nodes. BLADDER: Unremarkable. REPRODUCTIVE: Unremarkable. BONES: No acute fracture. OTHER FINDINGS: None. IMPRESSION: Ulcer or ulcerating mass along the posterior wall of the stomach at the anastomotic suture line. The findings conform to recent upper GI series. There is no evidence of extravasation or leak. No visible free air. No drainable collection identified. Additional benign and incidental findings, more remote more distal postoperative findings in colon and small.
[2018-08-08] MEDS: Oxycodone/Acetaminophen 5/325 mg Tab PO PRN ×4 (00:30→22:05)
[2018-08-08 07:19] LABS: ALB/GLOB RATIO 1.1 (1.0-2.1); ALBUMIN 3.5 g/dL (3.5-5.0); ALT/SGPT 7 U/L (9-52); AST/SGOT 19 U/L (14-36); BLOOD UREA NITROGEN 6 mg/dL (7-17); CALCIUM 9.8 mg/dl (8.6-10.4); GFR NON-AFRICAN AMERICAN > 60
[2018-08-08 07:22] LABS: BASO % 0.6 % (0.0-2.0); EOS % 0.8 % (0.0-4.0); HEMOGLOBIN 9.2 g/dL (11.0-16.0); LYMPH # 1.8 K/uL (1.0-4.3); LYMPH % 34.2 % (20.0-40.0); MEAN CELL VOLUME 80.3 fL (81.0-99.0); MEAN CORPUSCULAR HEMOGLOBIN 25.5 pg (27.0-31.0); MEAN CORPUSCULAR HGB CONC 31.8 g/dL (33.0-37.0); MEAN PLATELET VOLUME 7.8 fL (7.2-11.7); MONO # 0.4 K/uL (0.0-0.8); MONO % 8.4 % (0.0-10.0); NEUT # 2.9 K/uL (1.8-7.0); RBC 3.6 Mil/uL (3.80-5.20); RED CELL DISTRIBUTION WIDTH 17.7 % (11.5-14.5); WHITE BLOOD COUNT 5.1 K/uL (4.8-10.8)
[2018-08-08] MEDS: Docusate-Senna 50 mg-8.6 mg Tab PO SCH (11:14)
[2018-08-08] MEDS: POLYETHYLENE GLYCOL 3350 17 GM/Dose PACKET PO SCH ×2 (11:15→17:39)
--- NOTE | 2018-08-08 11:19 | CP.PCM.CON ---
<Ju Alicia - Last Filed: 08/08/18 11:19> History of Present Illness - History of Present Illness History of Present Illness: Gastroenterology Fellow/PGY6 Consult Note 38 year old female with PMH of perforated first portion duodenal ulcer s/p partial gastrectomy, gastrojejunostomy w/ Eulalio en Y (10/19/2017) and constipation presenting with abdominal pain. Patient notes intermittent left lower abdomen pain since surgery 10/19/17 that is relieved with heating pad and tylenol. Associated constipation for which she used senna as recommended by surgeon which resulted in three bowel movements. Presented to ER due to persistent pain. Notes ten pound unintentional weight loss since surgery 10/2017. Admits to small frequent meals that are tolerated without pain exacerbation. Mild pain relief after bowel movement. Denies nausea, vomiting, diarrhea, heartburn, acid reflux, bloating, melena, or hematochezia. No prior EGD or colonoscopy. Family History- denies stomach cancer, colon cancer Social History- denies current EtOH, tobacco and illicit drug use, history of 1/2 ppd >10 years, marijuana, PCP Surgical History- D&C, 10/19/17 partial gastrectomy, gastrojejunostomy w/ Eulalio en Y, umbilical hernia repair Review of Systems - Review of Systems Review of Systems: 12-point review of systems negative except for as above Past Patient History - Past Medical History & Family History Past Medical History?: Yes - Past Social History Smoking Status: Former Smoker - CARDIAC Hx Hypertension: Yes - PULMONARY Hx Respiratory Disorders: Yes Hx Tuberculosis: No - NEUROLOGICAL Hx Neurological Disorder: Yes Hx Seizures: No - HEMATOLOGICAL/ONCOLOGICAL Hx Human Immunodeficiency Virus (HIV): No - MUSCULOSKELETAL/RHEUMATOLOGICAL Hx Falls: No - GASTROINTESTINAL Hx Bowel Surgery: Yes Other/Comment: perforated doudenem,perforated viscous - GENITOURINARY/GYNECOLOGICAL Hx Sexually Transmitted Disorders: No - PSYCHIATRIC Hx Psychophysiologic Disorder: No Hx Substance Use: Yes - SURGICAL HISTORY Hx Surgeries: Yes Hx Herniorrhaphy: Yes Other/Comment: Abdominal Ulcer repair 11/17/2017. partial gastr ectomy,gastrojejunostomy,omental patch - ANESTHESIA Hx Anesthesia: Yes Hx Anesthesia Reactions: No Meds Allergies/Adverse Reactions: Allergies Allergy/AdvReac Type Severity Reaction Status Date / Time No Known Allergies Allergy Verified 08/03/18 16:24 - Medications Medications: Current Medications Acetaminophen (Tylenol 325mg Tab) 650 mg PO Q4 PRN PRN Reason: Pain, moderate (4-7) Last Admin: 08/06/18 02:17 Dose: 650 mg Docusate Sodium (Colace) 100 mg PO DAILY [facility] Last Admin: 08/08/18 11:14 Dose: 100 mg Oxycodone/Acetaminophen (Percocet 5/325 Mg Tab) 1 tab PO Q6H PRN PRN Reason: Pain, Mild (1-3) Stop: 08/10/18 15:02 Last Admin: 08/08/18 06:27 Dose: 1 tab Polyethylene Glycol (Miralax) 17 gm PO BID [facility] Last Admin: 08/08/18 11:15 Dose: 17 gm Senna/Docusate Sodium (Senokot S 50 Mg-8.6 Mg) 1 tab PO DAILY [facility] Last Admin: 08/08/18 11:14 Dose: 1 tab Physical Exam - Constitutional Appears: Non-toxic, No Acute Distress, Cachectic - Head Exam Head Exam: ATRAUMATIC, NORMOCEPHALIC - Eye Exam Eye Exam: EOMI, PERRL. absent: Scleral icterus Pupil Exam: PERRL. absent: Miosis, Mydriatic - ENT Exam ENT Exam: Mucous Membranes Moist, Normal Oropharynx - Neck Exam Neck exam: Positive for: Full Rom, Normal Inspection - Respiratory Exam Respiratory Exam: Clear to Auscultation Bilateral. absent: Rales, Rhonchi, Wheezes - Cardiovascular Exam Cardiovascular Exam: RRR, +S1, +S2. absent: Gallop, Rubs - GI/Abdominal Exam GI & Abdominal Exam: Normal Bowel Sounds, Soft, Tenderness. absent: Distended, Firm, Guarding, Organomegaly, Rebound, Rigid Additional comments: mild LLQ tenderness to palpation - Extremities Exam Extremities exam: Positive for: normal inspection - Neurological Exam Neurological exam: Alert - Psychiatric Exam Psychiatric exam: Normal Affect, Normal Mood - Skin Skin Exam: Dry, Intact, Normal Color, Warm Results - Vital Signs Recent Vital Signs: Last Vital Signs Temp 98 F 08/08/18 07:49 Pulse 75 08/08/18 07:49 Resp 20 08/08/18 07:49 BP 123/83 08/08/18 07:49 Pulse Ox 97 08/08/18 07:49 - Labs Result Diagrams: 08/08/18 06:56 08/08/18 06:56 Labs: Laboratory Results - last 24 hr 08/08/18 08/08/18 06:56 06:56 WBC 5.1 RBC 3.60 L Hgb 9.2 L Hct 28.9 L MCV 80.3 L MCH 25.5 L MCHC 31.8 L RDW 17.7 H Plt Count 673 H MPV 7.8 Neut % (Auto) 56.0 Lymph % (Auto) 34.2 [place] % (Auto) 8.4 Eos % (Auto) 0.8 Baso % (Auto) 0.6 Neut # (Auto) 2.9 Lymph # (Auto) 1.8 [place] # (Auto) 0.4 Eos # (Auto) 0.0 Baso # (Auto) 0.0 Differential Comment Sodium 133 Potassium 3.8 Chloride 99 Carbon Dioxide 30 Anion Gap 8 L BUN 6 L Creatinine 0.6 L Est GFR ( Amer) > 60 Est GFR (Non-Af Amer) > 60 Random Glucose 105 Calcium 9.8 Phosphorus 4.4 Magnesium 1.8 Total Bilirubin 0.1 L AST 19 ALT 7 L D Alkaline Phosphatase 82 Total Protein 6.7 Albumin 3.5 Globulin 3.2 Albumin/Globulin Ratio 1.1 Assessment & Plan - Assessment and Plan (Free Text) Assessment: 38 year old female with PMH of perforated first portion duodenal ulcer s/p partial gastrectomy, gastrojejunostomy w/ Eulalio en Y (10/19/2017) and constipation presenting with persistent left lower abdominal pain. PGI consultation for CT A/P PO contrast showing concern for ulceration or ulcerated mass at gastric anas tomotic site. No prior EGD or colonoscopy. Plan: -tolerating regular diet, small frequent meals -Ensure TID with meals -on PPI ACB -continue bowel regimen- Miralax BID, COlace -counselled on tobacco cessation -plan for EGD Friday for further evaluation of anastomotic site -will follow clinical course <Archana Hart - Last Filed: 08/08/18 11:40> Meds - Medications Medications: Current Medications Acetaminophen (Tylenol 325mg Tab) 650 mg PO Q4 PRN PRN Reason: Pain, moderate (4-7) Last Admin: 08/06/18 02:17 Dose: 650 mg Docusate Sodium (Colace) 100 mg PO DAILY [facility] Last Admin: 08/08/18 11:14 Dose: 100 mg Oxycodone/Acetaminophen (Percocet 5/325 Mg Tab) 1 tab PO Q6H PRN PRN Reason: Pain, Mild (1-3) Stop: 08/10/18 15:02 Last Admin: 08/08/18 06:27 Dose: 1 tab Polyethylene Glycol (Miralax) 17 gm PO BID [facility] Last Admin: 08/08/18 11:15 Dose: 17 gm Senna/Docusate Sodium (Senokot S 50 Mg-8.6 Mg) 1 tab PO DAILY [facility] Last Admin: 08/08/18 11:14 Dose: 1 tab Results - Vital Signs Recent Vital Signs: Last Vital Signs Temp 98 F 08/08/18 07:49 Pulse 75 08/08/18 07:49 Resp 20 08/08/18 07:49 BP 123/83 08/08/18 07:49 Pulse Ox 97 08/08/18 07:49 - Labs Result Diagrams: 08/08/18 06:56 08/08/18 06:56 Labs: Laboratory Results - last 24 hr 08/08/18 08/08/18 06:56 06:56 WBC 5.1 RBC 3.60 L Hgb 9.2 L Hct 28.9 L MCV 80.3 L MCH 25.5 L MCHC 31.8 L RDW 17.7 H Plt Count 673 H MPV 7.8 Neut % (Auto) 56.0 Lymph % (Auto) 34.2 [place] % (Auto) 8.4 Eos % (Auto) 0.8 Baso % (Auto) 0.6 Neut # (Auto) 2.9 Lymph # (Auto) 1.8 [place] # (Auto) 0.4 Eos # (Auto) 0.0 Baso # (Auto) 0.0 Differential Comment Sodium 133 Potassium 3.8 Chloride 99 Carbon Dioxide 30 Anion Gap 8 L BUN 6 L Creatinine 0.6 L Est GFR ( Amer) > 60 Est GFR (Non-Af Amer) > 60 Random Glucose 105 Calcium 9.8 Phosphorus 4.4 Magnesium 1.8 Total Bilirubin 0.1 L AST 19 ALT 7 L D Alkaline Phosphatase 82 Total Protein 6.7 Albumin 3.5 Globulin 3.2 Albumin/Globulin Ratio 1.1 Attending/Attestation - Attestation I have personally seen and examined this patient.: Yes I have fully participated in the care of the patient.: Yes I have reviewed all pertinent clinical information: Yes Notes (Text): 08/08/18 11:34 I have seen and examined the patient with the GI fellow. This is a 38 yo F with ex-polysubstance abuse, h/o perforated first portion duodenal ulcer s/p partial gastrectomy, gastrojejunostomy w/ Eulalio en Y (10/19/2017) c/b SBO x 2 afterwards and chronic constipation who p/w persistent LLQ abdominal pain, sent to the [facility] for further w/u. GI consultation for CT A/P PO contrast showing concern for ulceration or ulcerated mass at gastric anastomotic site. No prior EGD or colonoscopy. Denies NSAID use General: NAD HEENT: poor dentition Abd: soft, mildly tender in LLQ, mildly distended Plan: -small, frequent meals -add PPI daily -Miralax bid and Colace -plan for EGD on Friday to evaluate anastomotic site -would try to limit opioid/narcotic use -d/w pt 08/08/18 11:39
--- NOTE | 2018-08-08 19:19 | CP.PCM.PN ---
Subjective - Date & Time of Evaluation Date of Evaluation: 08/08/18 - Subjective Subjective: patient examined today no nausea no vomting no shortness of breath no dizziness no diarrhea no fever Objective - Vital Signs/Intake and Output Vital Signs (last 24 hours): Temp Pulse Resp BP Pulse Ox 97.8 F 75 20 108/67 99 08/08/18 15:30 08/08/18 15:30 08/08/18 15:30 08/08/18 15:30 08/08/18 15:30 Intake and Output: 08/08/18 08/09/18 18:59 06:59 Intake Total 400 Balance 400 - Medications Medications: Current Medications Acetaminophen (Tylenol 325mg Tab) 650 mg PO Q4 PRN PRN Reason: Pain, moderate (4-7) Last Admin: 08/06/18 02:17 Dose: 650 mg Docusate Sodium (Colace) 100 mg PO DAILY [facility] Last Admin: 08/08/18 11:14 Dose: 100 mg Oxycodone/Acetaminophen (Percocet 5/325 Mg Tab) 1 tab PO Q6H PRN PRN Reason: Pain, Mild (1-3) Stop: 08/10/18 15:02 Last Admin: 08/08/18 13:30 Dose: 1 tab Pantoprazole Sodium (Protonix Ec Tab) 40 mg PO DAILY [facility] Polyethylene Glycol (Miralax) 17 gm PO BID [facility] Last Admin: 08/08/18 17:39 Dose: 17 gm Senna/Docusate Sodium (Senokot S 50 Mg-8.6 Mg) 1 tab PO DAILY [facility] Last Admin: 08/08/18 11:14 Dose: 1 tab - Labs Labs: 08/08/18 06:56 08/08/18 06:56 - Constitutional Appears: Well - Head Exam Head Exam: ATRAUMATIC, NORMAL INSPECTION, NORMOCEPHALIC - Eye Exam Eye Exam: EOMI, Normal appearance, PERRL Pupil Exam: NORMAL ACCOMODATION, PERRL - ENT Exam ENT Exam: Mucous Membranes Moist, Normal Exam - Neck Exam Neck Exam: Full ROM, Normal Inspection. absent: Lymphadenopathy - Respiratory Exam Respiratory Exam: Decreased Breath Sounds - Cardiovascular Exam Cardiovascular Exam: REGULAR RHYTHM, +S1, +S2 - GI/Abdominal Exam GI & Abdominal Exam: Soft, Diminished Bowel Sounds - Rectal Exam Rectal Exam: Deferred - Neurological Exam Neurological Exam: Oriented x3 Assessment and Plan - Assessment and Plan (Free Text) Plan: colace miralax percocet senokot tylenol medications reviewed labs reviewed vitals reviewed
[2018-08-09] MEDS: Oxycodone/Acetaminophen 5/325 mg Tab PO PRN ×3 (05:15→21:46)
[2018-08-09 08:10] LABS: BASO % 0.8 % (0.0-2.0); EOS # 0.1 K/uL (0.0-0.7); EOS % 1.4 % (0.0-4.0); HEMOGLOBIN 8.9 g/dL (11.0-16.0); LYMPH # 1.7 K/uL (1.0-4.3); LYMPH % 39.3 % (20.0-40.0); MEAN CELL VOLUME 80.2 fL (81.0-99.0); MEAN CORPUSCULAR HEMOGLOBIN 25.7 pg (27.0-31.0); MEAN PLATELET VOLUME 7.7 fL (7.2-11.7); MONO # 0.4 K/uL (0.0-0.8); MONO % 9.4 % (0.0-10.0); NEUT # 2.1 K/uL (1.8-7.0); NEUT % 49.1 % (50.0-75.0); RBC 3.47 Mil/uL (3.80-5.20); WHITE BLOOD COUNT 4.4 K/uL (4.8-10.8)
[2018-08-09 08:24] LABS: ALB/GLOB RATIO 1.1 (1.0-2.1); ALBUMIN 3.5 g/dL (3.5-5.0); ALT/SGPT < 6 U/L (9-52); AST/SGOT 20 U/L (14-36); BLOOD UREA NITROGEN 12 mg/dL (7-17); CALCIUM 9.6 mg/dl (8.6-10.4); GFR NON-AFRICAN AMERICAN > 60
--- NOTE | 2018-08-09 09:52 | CP.PCM.PN ---
<Ju Alicia - Last Filed: 08/09/18 11:49> Subjective - Date & Time of Evaluation Date of Evaluation: 08/09/18 Time of Evaluation: 09:49 - Subjective Subjective: Gastroenterology Fellow/PGY6 Progress Note patient feels well. Notes mild mid-abdominal pain. Tolerating diet. Notes bowel movement yesterday. A 12-point review of systems negative except for as above. Objective - Vital Signs/Intake and Output Vital Signs (last 24 hours): Temp Pulse Resp BP Pulse Ox 98.8 F 69 20 119/82 100 08/09/18 07:55 08/09/18 07:55 08/09/18 07:55 08/09/18 07:55 08/09/18 07:55 Intake and Output: 08/09/18 08/09/18 06:59 18:59 Intake Total 360 Balance 360 - Medications Medications: Current Medications Acetaminophen (Tylenol 325mg Tab) 650 mg PO Q4 PRN PRN Reason: Pain, moderate (4-7) Last Admin: 08/06/18 02:17 Dose: 650 mg Docusate Sodium (Colace) 100 mg PO DAILY [facility] Last Admin: 08/08/18 11:14 Dose: 100 mg Oxycodone/Acetaminophen (Percocet 5/325 Mg Tab) 1 tab PO Q6H PRN PRN Reason: Pain, Mild (1-3) Stop: 08/10/18 15:02 Last Admin: 08/09/18 05:15 Dose: 1 tab Pantoprazole Sodium (Protonix Ec Tab) 40 mg PO DAILY [facility] Polyethylene Glycol (Miralax) 17 gm PO BID [facility] Last Admin: 08/08/18 17:39 Dose: 17 gm Senna/Docusate Sodium (Senokot S 50 Mg-8.6 Mg) 1 tab PO DAILY [facility] Last Admin: 08/08/18 11:14 Dose: 1 tab - Labs Labs: 08/09/18 07:50 08/09/18 07:50 - Constitutional Appears: Non-toxic, No Acute Distress - Head Exam Head Exam: ATRAUMATIC, NORMOCEPHALIC - Eye Exam Eye Exam: EOMI, PERRL. absent: Scleral icterus Pupil Exam: PERRL. absent: Miosis, Mydriatic - ENT Exam ENT Exam: Mucous Membranes Moist, Normal Oropharynx - Neck Exam Neck Exam: Full ROM, Normal Inspection - Respiratory Exam Respiratory Exam: Clear to Ausculation Bilateral. absent: Rales, Rhonchi, Wh eezes - Cardiovascular Exam Cardiovascular Exam: RRR, +S1, +S2. absent: Gallop, Rubs - GI/Abdominal Exam GI & Abdominal Exam: Soft, Tenderness, Normal Bowel Sounds. absent: Distended, Firm, Guarding, Rigid, Organomegaly, Rebound Additional comments: mild vague discomfort to palpation - Extremities Exam Extremities Exam: Normal Inspection - Neurological Exam Neurological Exam: Alert, Awake - Psychiatric Exam Psychiatric exam: Normal Affect, Normal Mood - Skin Skin Exam: Dry, Intact, Normal Color, Warm Assessment and Plan - Assessment and Plan (Free Text) Assessment: 38 year old female with PMH of perforated first portion duodenal ulcer s/p partial gastrectomy, gastrojejunostomy w/ Eulalio en Y (10/19/2017) and constipation presenting with persistent left lower abdominal pain. PGI consultation for CT A/P PO contrast showing concern for ulceration or ulcerated mass at gastric anastomotic site. No prior EGD or colonoscopy. Plan: -EGD 08/10/18 -NPO after midnight -tolerating regular diet, small frequent meals -Ensure TID with meals -on PPI ACB -continue Miralax BID and Colace -avoid NSAIDs -counselled on tobacco and illicit drug cessation -further recommendations after endoscopic evaluation <Archana Hart - Last Filed: 08/09/18 12:42> Objective - Vital Signs/Intake and Output Vital Signs (last 24 hours): Temp Pulse Resp BP Pulse Ox 98.8 F 69 20 119/82 100 08/09/18 07:55 08/09/18 07:55 08/09/18 07:55 08/09/18 07:55 08/09/18 07:55 Intake and Output: 08/09/18 08/09/18 06:59 18:59 Intake Total 360 Balance 360 - Medications Medications: Current Medications Acetaminophen (Tylenol 325mg Tab) 650 mg PO Q4 PRN PRN Reason: Pain, moderate (4-7) Last Admin: 08/06/18 02:17 Dose: 650 mg Docusate Sodium (Colace) 100 mg PO DAILY [facility] Last Admin: 08/09/18 10:04 Dose: 100 mg Oxycodone/Acetaminophen (Percocet 5/325 Mg Tab) 1 tab PO Q6H PRN PRN Reason: Pain, Mild (1-3) Stop: 08/10/18 15:02 Last Admin: 08/09/18 05:15 Dose: 1 tab Pantoprazole Sodium (Protonix Ec Tab) 40 mg PO DAILY [facility] Last Admin: 08/09/18 10:05 Dose: 40 mg Polyethylene Glycol (Miralax) 17 gm PO BID [facility] Last Admin: 08/09/18 10:03 Dose: 17 gm Senna/Docusate Sodium (Senokot S 50 Mg-8.6 Mg) 1 tab PO DAILY [facility] Last Admin: 08/09/18 10:03 Dose: 1 tab - Labs Labs: 08/09/18 07:50 08/09/18 07:50 PT 10.9 SECONDS (9.7-12.2) 08/09/18 11:23 INR 1.0 08/09/18 11:23 Attending/Attestation - Attestation I have personally seen and examined this patient.: Yes I have fully participated in the care of the patient.: Yes I have reviewed all pertinent clinical information, including history, physical exam and plan: Yes Notes (Text): 08/09/18 12:40 I have seen and examined the patient with the GI fellow. Pt notes her abdominal pain is improved. Had a good BM overnight. Otherwise, no complaints. H. pylori stool Ag not sent. NPO after midnight. Plan for EGD tmrw. Discussed with the pt.
[2018-08-09] MEDS ORDERED: Pantoprazole 40 mg EC Tab PO SCH (10:00)
[2018-08-09] MEDS: POLYETHYLENE GLYCOL 3350 17 GM/Dose PACKET PO SCH ×3 (10:03→21:47)
[2018-08-09] MEDS: Docusate-Senna 50 mg-8.6 mg Tab PO SCH (10:03)
[2018-08-09 11:38] LABS: PROTHROMBIN TIME 10.9 SECONDS (9.7-12.2)
--- NOTE | 2018-08-09 15:58 | CP.PCM.PN ---
Subjective - Date & Time of Evaluation Date of Evaluation: 08/09/18 - Subjective Subjective: patient seen today no nausea no vomiting no dizziness no fever no shortness of breath Objective - Vital Signs/Intake and Output Vital Signs (last 24 hours): Temp Pulse Resp BP Pulse Ox 98.8 F 69 20 119/82 100 08/09/18 07:55 08/09/18 07:55 08/09/18 07:55 08/09/18 07:55 08/09/18 07:55 Intake and Output: 08/09/18 08/09/18 06:59 18:59 Intake Total 360 Balance 360 - Medications Medications: Current Medications Acetaminophen (Tylenol 325mg Tab) 650 mg PO Q4 PRN PRN Reason: Pain, moderate (4-7) Last Admin: 08/06/18 02:17 Dose: 650 mg Docusate Sodium (Colace) 100 mg PO DAILY [facility] Last Admin: 08/09/18 10:04 Dose: 100 mg Oxycodone/Acetaminophen (Percocet 5/325 Mg Tab) 1 tab PO Q6H PRN PRN Reason: Pain, Mild (1-3) Stop: 08/10/18 15:02 Last Admin: 08/09/18 13:05 Dose: 1 tab Pantoprazole Sodium (Protonix Ec Tab) 40 mg PO DAILY [facility] Last Admin: 08/09/18 10:05 Dose: 40 mg Polyethylene Glycol (Miralax) 17 gm PO BID [facility] Last Admin: 08/09/18 10:03 Dose: 17 gm Senna/Docusate Sodium (Senokot S 50 Mg-8.6 Mg) 1 tab PO DAILY [facility] Last Admin: 08/09/18 10:03 Dose: 1 tab - Labs Labs: 08/09/18 07:50 08/09/18 07:50 PT 10.9 SECONDS (9.7-12.2) 08/09/18 11:23 INR 1.0 08/09/18 11:23 - Constitutional Appears: Well - Head Exam Head Exam: ATRAUMATIC, NORMAL INSPECTION, NORMOCEPHALIC - Eye Exam Eye Exam: EOMI, Normal appearance, PERRL Pupil Exam: NORMAL ACCOMODATION, PERRL - ENT Exam ENT Exam: Mucous Membranes Moist, Normal Exam - Neck Exam Neck Exam: Full ROM, Normal Inspection. absent: Lymphadenopathy - Respiratory Exam Respiratory Exam: Decreased Breath Sounds - Cardiovascular Exam Cardiovascular Exam: REGULAR RHYTHM, +S1, +S2 - GI/Abdominal Exam GI & Abdominal Exam: Soft, Diminished Bowel Sounds - Rectal Exam Rectal Exam: Deferred - Neurological Exam Neurological Exam: Oriented x3 Assessment and Plan - Assessment and Plan (Free Text) Plan: colace miralax percocet senokot tylenol medications reviewed labs reviewed vitals reviewed
[2018-08-10 06:55] LABS: BASO % 0.9 % (0.0-2.0); EOS # 0.1 K/uL (0.0-0.7); EOS % 1.9 % (0.0-4.0); HEMOGLOBIN 8.8 g/dL (11.0-16.0); LYMPH # 1.6 K/uL (1.0-4.3); LYMPH % 40.8 % (20.0-40.0); MEAN CELL VOLUME 80.2 fL (81.0-99.0); MEAN CORPUSCULAR HEMOGLOBIN 25.7 pg (27.0-31.0); MEAN PLATELET VOLUME 7.2 fL (7.2-11.7); MONO # 0.4 K/uL (0.0-0.8); MONO % 11.5 % (0.0-10.0); NEUT # 1.7 K/uL (1.8-7.0); NEUT % 44.9 % (50.0-75.0); RBC 3.44 Mil/uL (3.80-5.20); RED CELL DISTRIBUTION WIDTH 17.8 % (11.5-14.5); WHITE BLOOD COUNT 3.9 K/uL (4.8-10.8)
[2018-08-10 07:47] LABS: ALB/GLOB RATIO 1.1 (1.0-2.1); ALBUMIN 3.5 g/dL (3.5-5.0); ALT/SGPT 12 U/L (9-52); AST/SGOT 25 U/L (14-36); BLOOD UREA NITROGEN 12 mg/dL (7-17); CALCIUM 9.5 mg/dl (8.6-10.4); GFR NON-AFRICAN AMERICAN > 60
--- NOTE | 2018-08-10 08:47 | CP.PCM.PN ---
Subjective - Date & Time of Evaluation Date of Evaluation: 08/10/18 Time of Evaluation: 08:46 - Subjective Subjective: Medicine note Dr. Nidhi Zheng's service Patient was seen and examined at bedside. Patient complains of mild LLQ pain. She is aware of EGD procedure with GI today. Patient denies any symptoms of fever, chills, nausea, vomiting, chest pain, palpitations, shortness of breath, bowel changes and urinary symptoms. Objective - Vital Signs/Intake and Output Vital Signs (last 24 hours): Temp Pulse Resp BP Pulse Ox 98.7 F 71 20 99/67 L 100 08/10/18 00:00 08/10/18 00:00 08/10/18 00:00 08/10/18 00:00 08/10/18 00:00 Intake and Output: 08/10/18 08/10/18 06:59 18:59 Intake Total 480 Balance 480 - Medications Medications: Current Medications Acetaminophen (Tylenol 325mg Tab) 650 mg PO Q4 PRN PRN Reason: Pain, moderate (4-7) Last Admin: 08/06/18 02:17 Dose: 650 mg Docusate Sodium (Colace) 100 mg PO DAILY [facility] Last Admin: 08/09/18 10:04 Dose: 100 mg Oxycodone/Acetaminophen (Percocet 5/325 Mg Tab) 1 tab PO Q6H PRN PRN Reason: Pain, Mild (1-3) Stop: 08/10/18 15:02 Last Admin: 08/09/18 21:46 Dose: 1 tab Pantoprazole Sodium (Protonix Ec Tab) 40 mg PO DAILY [facility] Last Admin: 08/09/18 10:05 Dose: 40 mg Polyethylene Glycol (Miralax) 17 gm PO BID [facility] Last Admin: 08/09/18 21:47 Dose: Not Given Senna/Docusate Sodium (Senokot S 50 Mg-8.6 Mg) 1 tab PO DAILY [facility] Last Admin: 08/09/18 10:03 Dose: 1 tab - Labs Labs: 08/10/18 06:47 08/10/18 06:47 PT 10.9 SECONDS (9.7-12.2) 08/09/18 11:23 INR 1.0 08/09/18 11:23 - Additional Findings Additional findings: - Constitutional Appears: No Acute Distress - Head Exam Head Exam: ATRAUMATIC - Eye Exam Eye Exam: EOMI, Normal appearance - ENT Exam ENT Exam: Mucous Membranes Moist - Respiratory Exam Respiratory Exam: Clear to Ausculation Bilateral, NORMAL BREATHING PATTERN. absent: Decreased Breath Sounds, Prolonged Expiratory Phase, Rhonchi, Wheezes, Respiratory Distress - Cardiovascular Exam Cardiovascular Exam: REGULAR RHYTHM, +S1, +S2. absent: Tachycardia, Murmur - GI/Abdominal Exam GI & Abdominal Exam: Soft, Tenderness, Normal Bowel Sounds Additional comments: Mild tenderness at the LLQ/Left pelvic pain - Extremities Exam Extremities Exam: Normal Inspection. absent: Calf Tenderness, Pedal Edema - Neurological Exam Neurological Exam: Alert, Awake, Normal Gait, Oriented x3 - Psychiatric Exam Psychiatric exam: Normal Affect - Skin Skin Exam: Normal Color Assessment and Plan - Assessment and Plan (Free Text) Assessment: (1) Left lower quadrant pain Assessment & Plan: Planned for EGD today, f/u results NPO Protonix 40mg BID febrile and no Leukocytosis Tolerates PO diet Consultation: * General surgery, Dr. Quiros -Management as per recommendation * GI: Dr. Coon -EGD planned for today Imaging: Abdomen/Pelvis CT with IV contrast: Status post gastric surgery with a roughly 15 millimeter ill-defined fluid collection just inferior to the surgical site with generalized mild haziness of the mesenteric fat throughout the abdominal pelvic cavity. Upper GI series with water soluble contrast (08/06/18): Limited study for evaluation of postsurgical leak. Patient status post prior gastrectomy. Contrast flowed through the esophagus, stomach, and proximal small bowel without evidence of delay or gross extravasation. Upon delayed images, there was some pooling of contrast seen at the posterior aspect at the level of the remnant gastric pouch. This is of uncertain clinical etiology and may be related to a focal distension of the gastric pouch; however, in correlation with the CT scan dated 08/03/2018 a small contained leak cannot be excluded. Further evaluation with an oral and IV contrast enhanced CT scan of the abdomen and pelvis is recommended to better evaluate for any contrast extension to the abnormality seen on recent CT scan. Abdomen/Pelvis with PO contrast (08/07/18) as per radiologist read recommendation and with continuous pain at LLQ: Ulcer or ulcerating mass along the posterior wall of the stomach at the anastomotic suture line. The findings conform to recent upper GI series. There is no evidence of extravasation or leak. No visible free air. No drainable collection identified. Status: Acute (2) Pelvic pain Assessment & Plan: Transvaginal/Transabdominal: No uterine masses appreciated. Unremarkable appearing endometrium. Cul-de-sac fluid-mild. Bilateral physiologic appearing ovarian follicles dominant follicle on the left. No suspicious solid or cystic masses in either ovary. Prominent left adnexal vessels-this can be seen with a pelvic congestion clinical syndrome. Correlate clinically. Medications for pain control: * Percocet 5/325mg 1 tab PO Q6H PRN * Tylenol 650mg PO Q4H PRN Disposition: Patient will need outpatient Central Processing Tech follow up Status: Acute (3) Amenorrhea Assessment & Plan: Urine hCG (08/10/18): Negative TSH and Free T4: 0.85 and 1.01 ( WNL) FSH: 6.8 (WNL) LH: 1.8 (WNL) Status: Acute (4) Prophylactic measure Assessment & Plan: GI: Protonix DVT: SCDs, no chemical agent indicated All plans and management discussed with Dr. Nidhi Zheng Status: Acute
[2018-08-10] MEDS ORDERED: Midazolam 2 MG/2 ML VIAL ONE (09:16)
[2018-08-10] MEDS ORDERED: Propofol 10 mg/ml Inj (20 ML) ONE ×2 (09:16→09:17)
[2018-08-10] MEDS ORDERED: Lactated Ringer's 500 ML IV ONE ×2 (09:24)
[2018-08-10] MEDS: POLYETHYLENE GLYCOL 3350 17 GM/Dose PACKET PO SCH ×2 (10:52→22:07)
[2018-08-10] MEDS: Docusate-Senna 50 mg-8.6 mg Tab PO SCH (10:53)
[2018-08-10] MEDS: Pantoprazole 40 mg EC Tab PO SCH ×2 (10:53→22:07)
[2018-08-10 16:57] VITALS: RESP 20
[2018-08-10] MEDS: Oxycodone/Acetaminophen 5/325 mg Tab PO PRN (17:55)
--- NOTE | 2018-08-10 20:05 | CP.PCM.PN ---
Subjective - Date & Time of Evaluation Date of Evaluation: 08/10/18 - Subjective Subjective: patient seen and examined no dizziness no fever no vomiting no diarrhea no shortness of breath Objective - Vital Signs/Intake and Output Vital Signs (last 24 hours): Temp Pulse Resp BP Pulse Ox 98.4 F 96 H 20 107/70 99 08/10/18 16:00 08/10/18 16:00 08/10/18 16:00 08/10/18 16:00 08/10/18 16:00 Intake and Output: 08/10/18 08/11/18 18:59 06:59 Intake Total 500 Balance 500 - Medications Medications: Current Medications Acetaminophen (Tylenol 325mg Tab) 650 mg PO Q4 PRN PRN Reason: Pain, moderate (4-7) Last Admin: 08/06/18 02:17 Dose: 650 mg Docusate Sodium (Colace) 100 mg PO DAILY [facility] Last Admin: 08/10/18 10:53 Dose: Not Given Oxycodone/Acetaminophen (Percocet 5/325 Mg Tab) 1 tab PO Q6H PRN PRN Reason: Pain, severe (8-10) Stop: 08/13/18 17:45 Last Admin: 08/10/18 17:55 Dose: 1 tab Pantoprazole Sodium (Protonix Ec Tab) 40 mg PO BID [facility] Last Admin: 08/10/18 10:53 Dose: Not Given Polyethylene Glycol (Miralax) 17 gm PO BID [facility] Last Admin: 08/10/18 10:52 Dose: Not Given Senna/Docusate Sodium (Senokot S 50 Mg-8.6 Mg) 1 tab PO DAILY [facility] Last Admin: 08/10/18 10:53 Dose: Not Given - Labs Labs: 08/10/18 06:47 08/10/18 06:47 PT 10.9 SECONDS (9.7-12.2) 08/09/18 11:23 INR 1.0 08/09/18 11:23 - Constitutional Appears: Well - Head Exam Head Exam: ATRAUMATIC, NORMAL INSPECTION, NORMOCEPHALIC - Eye Exam Eye Exam: EOMI, Normal appearance, PERRL Pupil Exam: NORMAL ACCOMODATION, PERRL - ENT Exam ENT Exam: Mucous Membranes Moist, Normal Exam - Neck Exam Neck Exam: Full ROM, Normal Inspection. absent: Lymphadenopathy - Respiratory Exam Respiratory Exam: Decreased Breath Sounds - Cardiovascular Exam Cardiovascular Exam: REGULAR RHYTHM, +S1, +S2 - GI/Abdominal Exam GI & Abdominal Exam: Soft, Diminished Bowel Sounds - Rectal Exam Rectal Exam: Deferred - Neurological Exam Neurological Exam: Oriented x3 Assessment and Plan - Assessment and Plan (Free Text) Plan: colace miralax percocet senokot tylenol medications reviewed labs reviewed vitals reviewed
[2018-08-11 06:49] LABS: BASO % 0.9 % (0.0-2.0); EOS # 0.1 K/uL (0.0-0.7); EOS % 1.9 % (0.0-4.0); HEMOGLOBIN 8.8 g/dL (11.0-16.0); LYMPH # 1.9 K/uL (1.0-4.3); LYMPH % 41.2 % (20.0-40.0); MEAN CELL VOLUME 80.8 fL (81.0-99.0); MEAN CORPUSCULAR HEMOGLOBIN 25.4 pg (27.0-31.0); MEAN CORPUSCULAR HGB CONC 31.4 g/dL (33.0-37.0); MEAN PLATELET VOLUME 7.6 fL (7.2-11.7); MONO # 0.5 K/uL (0.0-0.8); MONO % 11.3 % (0.0-10.0); NEUT # 2.1 K/uL (1.8-7.0); NEUT % 44.7 % (50.0-75.0); NRBC % 0.1 % (0.0-2.0); RBC 3.48 Mil/uL (3.80-5.20); RED CELL DISTRIBUTION WIDTH 17.5 % (11.5-14.5); WHITE BLOOD COUNT 4.6 K/uL (4.8-10.8)
[2018-08-11 07:41] LABS: ALB/GLOB RATIO 1.1 (1.0-2.1); ALBUMIN 3.4 g/dL (3.5-5.0); ALT/SGPT 17 U/L (9-52); AST/SGOT 39 U/L (14-36); BLOOD UREA NITROGEN 14 mg/dL (7-17); CALCIUM 9.5 mg/dl (8.6-10.4); GFR NON-AFRICAN AMERICAN > 60
--- NOTE | 2018-08-11 09:24 | CP.PCM.PN ---
<Mike Servinhan - Last Filed: 08/11/18 09:18> Subjective - Date & Time of Evaluation Date of Evaluation: 08/11/18 Time of Evaluation: 09:18 - Subjective Subjective: Patient is doing well. No complaints. Abdominal pain is much improved since admission. Tolerating diet. Last BM was brown. Objective - Vital Signs/Intake and Output Vital Signs (last 24 hours): Temp Pulse Resp BP Pulse Ox 98.7 F 84 20 99/61 L 96 08/11/18 07:00 08/11/18 07:00 08/11/18 07:00 08/11/18 07:00 08/11/18 07:00 Intake and Output: 08/11/18 08/11/18 06:59 18:59 Intake Total 450 Balance 450 - Medications Medications: Current Medications Acetaminophen (Tylenol 325mg Tab) 650 mg PO Q4 PRN PRN Reason: Pain, moderate (4-7) Last Admin: 08/06/18 02:17 Dose: 650 mg Docusate Sodium (Colace) 100 mg PO DAILY [facility] Last Admin: 08/10/18 10:53 Dose: Not Given Oxycodone/Acetaminophen (Percocet 5/325 Mg Tab) 1 tab PO Q6H PRN PRN Reason: Pain, severe (8-10) Stop: 08/13/18 17:45 Last Admin: 08/10/18 17:55 Dose: 1 tab Pantoprazole Sodium (Protonix Ec Tab) 40 mg PO BID [facility] Last Admin: 08/10/18 22:07 Dose: 40 mg Polyethylene Glycol (Miralax) 17 gm PO BID [facility] Last Admin: 08/10/18 22:07 Dose: 17 gm Senna/Docusate Sodium (Senokot S 50 Mg-8.6 Mg) 1 tab PO DAILY [facility] Last Admin: 08/10/18 10:53 Dose: Not Given - Labs Labs: 08/11/18 06:40 08/11/18 06:40 PT 10.9 SECONDS (9.7-12.2) 08/09/18 11:23 INR 1.0 08/09/18 11:23 - Constitutional Appears: Non-toxic, No Acute Distress - Head Exam Head Exam: ATRAUMATIC, NORMAL INSPECTION - Eye Exam Eye Exam: EOMI, Normal appearance - Respiratory Exam Respiratory Exam: Clear to Ausculation Bilateral, NORMAL BREATHING PATTERN - Cardiovascular Exam Cardiovascular Exam: REGULAR RHYTHM, +S1, +S2 - GI/Abdominal Exam GI & Abdominal Exam: Soft, Normal Bowel Sounds. absent: Tenderness - Extremities Exam Extremities Exam: Normal Inspection. 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 PGI consultation for CT A/P PO contrast showing concern for ulceration or ulcerated mass at gastric anastomotic site. No prior EGD or colonoscopy. Plan: -EGD 08/10/18 - Two halie-anastomotic ulcers ~2-3cms. Clean based, FC III. No signs of bleedings. -tolerating regular diet, small frequent meals -Ensure TID with meals -Continue PPI BID, reassess in 2 months after EGD. -continue Miralax BID and Colace -avoid NSAIDs, smoking to promote ulcer healing. Patient understands. -counselled on tobacco and illicit drug cessation -She will need EGD in 6-8 weeks. -Patient can follow up with Dr. Hart as an outpatient in 4-6 weeks. Case discussed with Dr. Coon, see attestation. <Jaden Coon Y - Last Filed: 08/11/18 09:38> Objective - Vital Signs/Intake and Output Vital Signs (last 24 hours): Temp Pulse Resp BP Pulse Ox 98.7 F 84 20 99/61 L 96 08/11/18 07:00 08/11/18 07:00 08/11/18 07:00 08/11/18 07:00 08/11/18 07:00 Intake and Output: 08/11/18 08/11/18 06:59 18:59 Intake Total 450 Balance 450 - Medications Medications: Current Medications Acetaminophen (Tylenol 325mg Tab) 650 mg PO Q4 PRN PRN Reason: Pain, moderate (4-7) Last Admin: 08/06/18 02:17 Dose: 650 mg Docusate Sodium (Colace) 100 mg PO DAILY [facility] Last Admin: 08/10/18 10:53 Dose: Not Given Oxycodone/Acetaminophen (Percocet 5/325 Mg Tab) 1 tab PO Q6H PRN PRN Reason: Pain, severe (8-10) Stop: 08/13/18 17:45 Last Admin: 08/10/18 17:55 Dose: 1 tab Pantoprazole Sodium (Protonix Ec Tab) 40 mg PO BID [facility] Last Admin: 08/10/18 22:07 Dose: 40 mg Polyethylene Glycol (Miralax) 17 gm PO BID [facility] Last Admin: 08/10/18 22:07 Dose: 17 gm Senna/Docusate Sodium (Senokot S 50 Mg-8.6 Mg) 1 tab PO DAILY [facility] Last Admin: 08/10/18 10:53 Dose: Not Given - Labs Labs: 08/11/18 06:40 08/11/18 06:40 PT 10.9 SECONDS (9.7-12.2) 08/09/18 11:23 INR 1.0 08/09/18 11:23 Attending/Attestation - Attestation I have personally seen and examined this patient.: Yes I have fully participated in the care of the patient.: Yes I have reviewed all pertinent clinical information, including history, physical exam and plan: Yes Notes (Text): 08/11/18 09:35 I have seen and examined patient with GI fellow. No acute events overnight, she is seen resting in bed comfortably. She reports improving abdominal pain and denies nausea, vomiting, fever/chills. Tolerating PO diet without difficulty. History of perforated duodenal ulcer s/p gastrojejunostomy abdominal pain, s/p EGD yesterday showing two anastomotic ulcers - Diet as tolerated - Follow up EGD biopsy results - Continue with PPI therapy - H/H stable, continue to monitor - NSAID avoidance - Cigarette smoking cessation counseling provided - Patient would benefit in repeat EGD within 2 months to ensure ulcer healing - No further planned GI intervention, will sign off case. Please reconsult as necessary, thank you.
[2018-08-11] MEDS: Docusate-Senna 50 mg-8.6 mg Tab PO SCH (10:52)
[2018-08-11] MEDS: Pantoprazole 40 mg EC Tab PO SCH (10:52)
[2018-08-11] MEDS: POLYETHYLENE GLYCOL 3350 17 GM/Dose PACKET PO SCH (10:52)
[2018-08-11] MEDS: Oxycodone/Acetaminophen 5/325 mg Tab PO PRN (13:08)
--- NOTE | 2018-08-11 15:12 | CP.PCM.PN ---
Subjective - Date & Time of Evaluation Date of Evaluation: 08/11/18 Time of Evaluation: 15:11 - Subjective Subjective: PATIENT SEEN AND EXAMINED AT THE BEDSIDE Objective - Vital Signs/Intake and Output Vital Signs (last 24 hours): Temp Pulse Resp BP Pulse Ox 98.7 F 84 20 99/61 L 96 08/11/18 07:00 08/11/18 07:00 08/11/18 07:00 08/11/18 07:00 08/11/18 07:00 Intake and Output: 08/11/18 08/11/18 06:59 18:59 Intake Total 450 500 Balance 450 500 - Medications Medications: Current Medications Acetaminophen (Tylenol 325mg Tab) 650 mg PO Q4 PRN PRN Reason: Pain, moderate (4-7) Last Admin: 08/06/18 02:17 Dose: 650 mg Docusate Sodium (Colace) 100 mg PO DAILY [facility] [place] Last Admin: 08/11/18 10:52 Dose: 100 mg Oxycodone/Acetaminophen (Percocet 5/325 Mg Tab) 1 tab PO Q6H PRN PRN Reason: Pain, severe (8-10) Stop: 08/13/18 17:45 Last Admin: 08/11/18 13:08 Dose: 1 tab Pantoprazole Sodium (Protonix Ec Tab) 40 mg PO BID [facility] [place] Last Admin: 08/11/18 10:52 Dose: 40 mg Polyethylene Glycol (Miralax) 17 gm PO BID [facility] Last Admin: 08/11/18 10:52 Dose: 17 gm Senna/Docusate Sodium (Senokot S 50 Mg-8.6 Mg) 1 tab PO DAILY [facility] [place] Last Admin: 08/11/18 10:52 Dose: 1 tab - Labs Labs: 08/11/18 06:40 08/11/18 06:40 PT 10.9 SECONDS (9.7-12.2) 08/09/18 11:23 INR 1.0 08/09/18 11:23 Assessment and Plan - Assessment and Plan (Free Text) Assessment: FOLLOW UP WITH DR Nancy JOYA IN IN HIS OFFICE FOLLOW UP WITH DR LOAIZA ------CALL FOR APPOINTMENT ADDRESS YOUR REPEAT EGD IN 2 MOTHS AT YOUR VISIT CONTINUE HOME MEDICATION NEW PRESCRIPTION GIVEN PROTONIX 40 MG PO DAILY SENOKOT 1 TAB PO DAILY [facility] CALL DR Nancy JOYA OR GO TO THE EMERGENCY ROOM IF SYMPTOM RETURN OR WORSENING
[2018-08-11 15:58] VITALS: BP 102/66; PULSE 81; TEMP 99.6; O2SAT 100
== END 2018-08-11 17:20 | disposition home or self-care (01) | DRG 369 ==
LOC: C.ER 15:08 → C.9E 23:24 → INTOOBSV 23:24 → C.3T 23:49 → OBSVTOIN 08-07 12:29 → C.ER 08-07 15:08 → C.9E 08-07 23:24 → C.3T 08-07 23:49
PROVIDERS: ADMIT Internal Medicine Nephrology; ATTEND Internal Medicine Nephrology
PROC: 0DB68ZX Excision of Stomach, Via Natural or Artificial Opening Endoscopic, Diagnostic (ICD-10-PCS; principal; 2018-08-10 09:34)
DX: N94.89 Other specified conditions associated with female genital organs and menstrual cycle (principal); R18.8 Other ascites; K25.9 Gastric ulcer, unspecified as acute or chronic, without hemorrhage or perforation; I10 Essential (primary) hypertension; F12.90 Cannabis use, unspecified, uncomplicated; F17.210 Nicotine dependence, cigarettes, uncomplicated; K59.00 Constipation, unspecified; N91.2 Amenorrhea, unspecified; Z98.890 Other specified postprocedural states

== ENCOUNTER 2018-08-18 20:35 | Emergency (ER) | payer MEDICAID ==
[2018-08-18 21:34] VITALS: RESP 20
[2018-08-18] MEDS ORDERED: Sodium Chloride 0.9% 1,000 ML IV ONE (22:16)
--- NOTE | 2018-08-18 22:26 | C.PDOC ---
History Of Present Illness 38 year old female presents to the ED c/o abdominal pain and one episode of rectal bleeding that occurred yesterday. Patient denies fever, chills, CP, SOB, palpitations, headache, dizziness, nausea, vomit, diarrhea. Chief Complaint (Nursing): GI Problem History Per: Patient History/Exam Limitations: no limitations Onset/Duration Of Symptoms: Days (1) Current Symptoms Are (Timing): Still Present Location Of Pain/Discomfort: Diffuse Quality Of Discomfort: "Pain" Associated Symptoms: denies: Nausea, Vomiting, Diarrhea, Constipation, Urinary Symptoms Recent travel outside of the [place]: No Additional History Per: Patient Abnormal Vaginal Bleeding: No Past Medical History Reviewed: Historical Data, Nursing Documentation, Vital Signs Vital Signs: Last Vital Signs Temp 97.7 F 08/18/18 21:23 Pulse 106 H 08/18/18 21:23 Resp 20 08/18/18 21:23 BP 164/89 H 08/18/18 21:23 Pulse Ox 100 08/18/18 21:23 Primary Care Provider: Non [facility] Provider, - Medical History PMH: Anxiety, Depression, HTN Denies: Diabetes, Hepatitis, HIV, Seizures, Sexually Transmitted Disease Surgical History: No Surg Hx - [facility] Procedures BYPASS STOMACH TO JEJUNUM, OPEN APPROACH (10/18/17) DRAINAGE OF PELVIC CAVITY, OPEN APPROACH (10/18/17) DRAINAGE OF STOMACH WITH DRAINAGE DEVICE, VIA OPENING (12/17/17) EXCISION OF STOMACH, ENDO, DIAGN (08/07/18) EXCISION OF STOMACH, OPEN APPROACH (10/18/17) INSERT OF INFUSION PUMP INTO ABD SUBCU/FASCIA, PERC APPROACH (10/18/17) RELEASE PERITONEUM, OPEN APPROACH (10/18/17) SUPPLEMENT DUODENUM WITH AUTOL SUB, OPEN APPROACH (10/18/17) SUTURE OF LIP LACERATION (08/21/14) TETANUS TOXOID ADMINIST (08/21/14) Family History: States: Unknown Family Hx - Social History Hx Tobacco Use: Yes Hx Alcohol Use: No Hx Substance Use: Yes - Immunization History Hx Tetanus Toxoid Vaccination: No Hx Influenza Vaccination: No Hx Pneumococcal Vaccination: No Review Of Systems Constitutional: Negative for: Fever, Chills Cardiovascular: Negative for: Chest Pain, Palpitations Respiratory: Negative for: Cough, Shortness of Breath Gastrointestinal: Positive for: Abdominal Pain, Melena. Negative for: Nausea, Vomiting, Diarrhea Skin: Negative for: Rash Neurological: Negative for: Weakness, Numbness, Headache, Dizziness Physical Exam - Physical Exam Appears: Non-toxic, No Acute Distress Skin: Normal Color, Warm, Dry Head: Atraumatic, Normacephalic Eye(s): bilateral: Normal Inspection Neck: Normal ROM, Supple Chest: Symmetrical Cardiovascular: Rhythm Regular Respiratory: Normal Breath Sounds, No Rales, No Rhonchi, No Wheezing Gastrointestinal/Abdominal: Soft, No Tenderness, No Guarding, No Rebound Rectal: Other (no active bleeding) Extremity: Normal ROM, No Tenderness, No Swelling Neurological/Psych: Oriented x3, Normal Speech, Normal Cognition Gait: Steady ED Course And Treatment - Laboratory Results Result Diagrams: 08/18/18 22:28 08/18/18 22:28 O2 Sat by Pulse Oximetry: 100 (ON RA) Pulse Ox Interpretation: Normal Medical Decision Making Medical Decision Making: Plan: * Labs * Protonix 40 mg IVP * IV fluids Disposition Counseled Patient/Family Regarding: Diagnosis - Disposition Referrals: [facility] [Outside] Disposition: HOME/ ROUTINE Disposition Time: 23:26 Condition: STABLE Prescriptions: Pantoprazole Sodium [Protonix] 40 mg PO DAILY #20 ect Sucralfate [Carafate] 1 gm PO BID #30 tab Instructions: Gastric Ulcer (DC), Ulcer and Gastritis Diet, Acute Abdomen (Belly Pain) Forms: [facility] ([place]) - POA Present On Arrival: None - Clinical Impression Clinical Impression: Gastritis, Peptic ulcer disease - Scribe Statement The provider has reviewed the documentation as recorded by the Scribed Peterson All medical record entries made by the Scribed were at my direction and personally dictated by me. I have reviewed the chart and agree that the record accurately reflects my personal performance of the history, physical exam, medical decision making, and the department course for this patient. I have also personally directed, reviewed, and agree with the discharge instructions and disposition.
[2018-08-18] MEDS ORDERED: Sodium Chloride 0.9% 1,000 ML ONE (22:28)
[2018-08-18 22:34] LABS: BASO # 0.1 K/uL (0.0-0.2); BASO % 0.8 % (0.0-2.0); EOS # 0.1 K/uL (0.0-0.7); EOS % 0.7 % (0.0-4.0); HEMOGLOBIN 9.1 g/dL (11.0-16.0); LYMPH # 1.8 K/uL (1.0-4.3); LYMPH % 24.3 % (20.0-40.0); MEAN CELL VOLUME 80.1 fL (81.0-99.0); MEAN CORPUSCULAR HEMOGLOBIN 24.6 pg (27.0-31.0); MEAN CORPUSCULAR HGB CONC 30.7 g/dL (33.0-37.0); MEAN PLATELET VOLUME 7.6 fL (7.2-11.7); MONO # 0.7 K/uL (0.0-0.8); NEUT # 4.9 K/uL (1.8-7.0); NEUT % 65.2 % (50.0-75.0); RBC 3.7 Mil/uL (3.80-5.20); RED CELL DISTRIBUTION WIDTH 18.1 % (11.5-14.5); WHITE BLOOD COUNT 7.6 K/uL (4.8-10.8)
[2018-08-18 22:44] LABS: PROTHROMBIN TIME 10.7 SECONDS (9.7-12.2)
[2018-08-18 22:46] LABS: ALB/GLOB RATIO 1.4 (1.0-2.1); ALBUMIN 4.1 g/dL (3.5-5.0); ALT/SGPT 10 U/L (9-52); AST/SGOT 15 U/L (14-36); BLOOD UREA NITROGEN 6 mg/dL (7-17); GFR NON-AFRICAN AMERICAN > 60; LIPASE 58 U/L (23-300)
[2018-08-19 00:07] VITALS: BP 148/89; PULSE 84; TEMP 98; O2SAT 99
== END 2018-08-18 23:45 | disposition home or self-care (01) ==
LOC: C.ER 20:35
DX: K29.70 Gastritis, unspecified, without bleeding (principal); K27.9 Peptic ulcer, site unspecified, unspecified as acute or chronic, without hemorrhage or perforation; I10 Essential (primary) hypertension; Z72.0 Tobacco use
CPT/HCPCS: 80053; 83690; 85025; 85610; 85730; 96374; 99285; C9113; G0328; J7030